=== PATIENT | female | born 1945 | race Caucasian/White ===

== ENCOUNTER → 2018-07-20 12:45 | Outpatient (CLI) | payer MEDICARE, OTHER, SELFPAY ==
[2018-07-20 14:37] LABS: Hemoglobin A1C% w Est Avg Glu 6.3 % (4.0-6.0)
== END ==
PROVIDERS: PCP Family Medicine; Visit Provider Family Medicine
DX: E11.9 Type 2 diabetes mellitus without complications (principal)
CPT/HCPCS: 36415; 83036

== ENCOUNTER → 2019-01-18 10:58 | Outpatient (CLI) | payer MEDICARE, OTHER, SELFPAY ==
[2019-01-18 12:09] LABS: Add Manual Diff / Slide Review NO; Basophils Absolute Auto 100 /uL (0-100); Basophils Percent Auto 0.6 % (0-2); Eosinophils Absolute Auto 300 /uL (0-450); Eosinophils Percent Auto 3.4 % (2-4); Hematocrit 43.4 % (36-46); Hemoglobin 14.5 g/dL (12.0-16.0); Lymphocytes Absolute Auto 2400 /uL (1100-4500); Lymphocytes Percent Auto 27.3 % (25-40); Mean Corpuscular HGB Conc 33.4 % (30-36); Mean Corpuscular Hemoglobin 30.9 PG (26-34); Mean Corpuscular Volume 92.5 fL (80-100); Monocytes Absolute Auto 600 /uL (0-900); Monocytes Percent Auto 7.4 % (3-14); Neutrophils Absolute Auto 5300 /uL (1500-7000); Neutrophils Percent Auto 61.3 % (50-75); Platelet Count 263 X10^3/uL (150-400); Red Blood Cell Count 4.69 X10^6/uL (4.0-5.2); White Blood Cell Count 8.6 X10^3/uL (4.5-11.0)
[2019-01-18 12:19] LABS: Hemoglobin A1C% w Est Avg Glu 6.2 % (4.0-6.0)
[2019-01-18 12:43] LABS: Alanine Aminotransferase 29 IU/L (9-52); Albumin Globulin Ratio 1.4 (1.0-2.8); Alkaline Phosphatase 108 U/L (38-126); Aspartate Aminotransferase 23 IU/L (14-36); Bilirubin Total 0.6 mg/dL (0.2-1.3); Blood Urea Nitrogen 14 mg/dL (7-17); Calcium 9.7 mg/dL (8.4-10.2); Carbon Dioxide 27 mmol/L (22-32); Chloride 103 mmol/L (98-107); Cholesterol 172 mg/dL (140-199); Estimated Glomerular Filt Rate > 60.0 mL/min (>60); Globulin 2.9 g/dL (1.7-4.1); Glucose 127 mg/dL (80-110); HDL Cholesterol 39 mg/dL (40-60); HEMOLYSIS < 15 (0-50); LDL Cholesterol Calculated 101 mg/dL (<100); Potassium 4.9 mmol/L (3.4-5.1); Sodium 140 mmol/L (137-145); Total Protein 6.9 g/dL (6.3-8.2); Triglycerides 158 mg/dL (35-150)
== END ==
PROVIDERS: Family Provider Family Medicine; PCP Family Medicine; Visit Provider Family Medicine
DX: E03.9 Hypothyroidism, unspecified (principal); E11.9 Type 2 diabetes mellitus without complications; I10 Essential (primary) hypertension
CPT/HCPCS: 36415; 80053; 80061; 83036; 84443; 85025

== ENCOUNTER → 2019-03-26 13:20 | Outpatient (CLI) | payer MEDICARE, OTHER, SELFPAY ==
--- NOTE | 2019-03-26 13:22 | DI.RAD.S_ITS ---
PROCEDURE: XR LUMBAR SPINE 2-3V INDICATIONS: lbp TECHNIQUE: 3 views of the lumbar spine were acquired. COMPARISON: None. FINDINGS: Bones: 5 [id number] vertebrae are present. There is normal bony alignment. No acute vertebral body compression fractures. Moderate multilevel lumbar spondylitic changes with facet arthrosis most severe at L4-5 and L5-S1. No suspicious bony lesions. Soft tissues: Overlying bowel gas pattern is normal. No suspicious soft tissue calcifications. Vascular calcifications of the abdominal aorta are noted. IMPRESSION: Lumbar spine without acute osseous abnormalities. Multilevel lumbar spondylosis most prominent at L4-5 and L5-S1. Dictated by: Watson Jaramillo M.D. on 03/26/2019 at 13:43 Approved by: Watson Jaramillo M.D. on 03/26/2019 at 13:44
== END ==
PROVIDERS: Family Provider Family Medicine; PCP Family Medicine; Visit Provider Family Medicine
DX: M54.5 Low back pain (principal); M47.816 Spondylosis without myelopathy or radiculopathy, lumbar region; M47.817 Spondylosis without myelopathy or radiculopathy, lumbosacral region
CPT/HCPCS: 72100

== ENCOUNTER 2019-05-23 13:11 | Emergency (ER) | payer MEDICARE, OTHER, SELFPAY ==
[2019-05-23 13:29] VITALS: BP 128/99; PULSE 71; RESP 15; TEMP 36.7; O2SAT 100; BMI 24.3
[2019-05-23 13:34] LABS: Appearance Urine UA SL CLOUDY; Bilirubin Urine UA NEGATIVE (NEGATIVE); Glucose Urine UA NEGATIVE (Negative); Ketones Urine UA NEGATIVE (NEGATIVE); Leukocyte Esterase Urine UA TRACE (NEGATIVE); Nitrite Urine UA NEGATIVE (Negative); Occult Blood Urine UA 3+ (Negative); Protein Urine UA 1+ (Negative); Urobilinogen Urine UA 0.2 E.U./dL (0.2)
--- NOTE | 2019-05-23 13:40 | ED.FEMALEGU ---
HPI - Female Genitourinary <AMY Woodall - Last Filed: 05/23/19 20:23> General Chief complaint: Urogenital-Female Stated complaint: Dark urine, pain in back/kidney Time Seen by Provider: 05/23/19 13:18 Source: patient Mode of arrival: ambulatory Limitations: no limitations History of Present Illness HPI Narrative: This is a pleasant 73-year-old female, nonsmoker, who presents with family member with chief complain of nausea, feeling fatigued, nocturnal cough, left flank pain, dark urine, feeling restless for last 3 days. She denies fever but felt sweaty at home. She was treated for bladder infection in the late April for 10 days with Bactrim DS when she was traveling to [place] to visit her daughter. She reports she did not fully feel recovered from this infection up until 4 days ago when she felt little improved for a day. She denies chest pain, breathing difficulty, calf pain, fainting episodes. She was re-evaluated by Dr. Burton when she returned to home with another urine test but the office did not contacted her with the result. She has history of AFib with anticoagulation, diabetes which she takes oral medications for. Related Data Home Medications Medication Instructions Recorded Confirmed ASCORBIC ACID (VITAMIN C) 500 mg PO Q DAY #0 06/04/12 05/07/19 CALCIUM CARBONATE (CALCIUM 1,000 mg PO #0 06/04/12 05/07/19 CARBONATE (CHEW)) Fish Oil (#FISH OIL) 1 iu PO #0 06/04/12 05/07/19 Glucosamine Hydrochloride 500 mg PO #0 06/04/12 05/07/19 (#GLUCOSAMINE) MULTIVITAMIN (One Daily 1 tab PO Q DAY #0 06/04/12 05/07/19 Multivitamin) VITAMIN D 400 iu PO #0 06/04/12 05/07/19 Zinc, Chelated (#ZINC) 10 mg PO #0 06/04/12 05/07/19 folic acid 0.4 mg PO QDAY #0 06/04/12 05/07/19 Previous Rx's Medication Instructions Recorded clobetasol 0.05 % TOPICAL QDAY #50 ml 01/26/18 glipizide 10 mg tablet 10 mg PO BIDCC #180 tab 02/03/19 lisinopril 40 mg tablet 40 mg PO QDAY #90 tab 02/03/19 metoprolol tartrate 100 mg tablet 100 mg PO BID #180 tab 02/03/19 gabapentin 300 mg capsule 600 mg PO HS #180 tab 02/11/19 levothyroxine 100 mcg tablet 100 mcg PO QAM #90 tab 02/11/19 metformin ER 500 mg 1,000 mg PO BID #360 tab 02/11/19 tablet,extended release 24 hr ranitidine 150 mg tablet 150 mg PO BID #180 tab 02/11/19 warfarin 5 mg tablet 5 mg PO .COMPLEX #90 tab 02/11/19 levofloxacin [Levaquin] 750 mg PO DAILY 5 Days tab 05/23/19 ondansetron HCl [Zofran] 4 mg PO Q6-8H PRN #7 tab 05/23/19 Allergies Allergy/AdvReac Type Severity Reaction Status Date / Time No Known Drug Allergies Allergy Verified 05/07/19 14:07 Review of Systems <AMY Woodall - Last Filed: 05/23/19 20:23> Review of Systems General: See HPI HEENT: Denies sinus pain, ear pain, sore throat, difficulty swallowing, dizziness. Respiratory: Denies dyspnea, wheezing, hemoptysis, sputum. Cardiovascular: Denies chest pain, palpitations, edema. Gastrointestinal: See HPI : See HPI Musculoskeletal: Denies weakness, joint pain or bony pain. Skin: Denies rash, skin lesions, or other. Neurologic: Denies headache, numbness, change in speech, confusion, seizures, incoordination. Psychiatric: No concerning psychosocial issues. 12-point review of systems is negative except for those stated above. PFSH <AMY Woodall - Last Filed: 05/23/19 20:23> Medical History (Updated 05/23/19 @ 16:06 by AMY Woodall) GERD (gastroesophageal reflux disease) (Acute) HTN (hypertension) (Acute) Hypothyroidism (Acute) Paresthesia (Acute) Anemia (Chronic) Atrial fibrillation (Chronic ~2015) Diabetes mellitus (Chronic) Fibroids (Chronic) Heavy menstrual period (Chronic) Tinnitus (Chronic) Vision disorder (Chronic) Chicken pox (Resolved) Measles (Resolved) Mumps (Resolved) Surgical History History of hysterectomy (Resolved) Family History Father Stroke Mother Heart disease Social History marital status: Smoking Status: Never smoker alcohol intake: current substance use type: does not use Family History Father Stroke Mother Heart disease Social History marital status: Smoking Status: Never smoker alcohol intake: current substance use type: does not use Exam <AMY Woodall - Last Filed: 05/23/19 20:23> Narrative Exam Narrative: GEN: Alert, oriented x 3, well appearing and nourished, and in no acute distress. Head: Normal cephalic, atraumatic. No scalp or temporal tenderness, palpable mass or rash. EYES: Pupils are equal, round, and reactive to light and accommodation. Extraocular muscles are intact bilaterally. There is no subconjunctival hemorrhage, exudate and sclera non-icteric. ENT: Mucous membrane moist, no mucosal lesion. Throat without erythema, tonsillar hypertrophy or exudate. Uvula in midline, airway patent. Neck: Trachea in midline. No JVD, non-tender without lymphadenopathy. No masses or thyroid megaly. Supple, non-tender and no meningeal signs. CARDIAC: Normal regular rate and rhythm without murmurs, gallops, or rubs. No chest wall tenderness. No peripheral edema, cyanosis or pallor. Capillary refill is less than 2 seconds. RESPIRATORY: Lungs are cleat to auscultate bilaterally. No cough, wheezes, rales, or rhonchi. No stridor, respiratory distress, increase work of breathing, or accessary muscle used. ABD: Abdomen soft, nontender and non-distended. No guarding or rebound tenderness to palpate. Bowel sounds are normal in all 4 quadrants. There is no palpable masses or organomegaly. EXT: Full painless ROM of all extremities with no loss of sensation, strength, effusion or edema. SKIN: Warm, dry, normal color for patient. No erythema, lesions or rash over visible areas. BACK: Nontender without deformity or crepitance. L flank pain to percussion NEUROLOGICAL: Alert and oriented to place, time and person. Sensation and motor function intact bilaterally. No facial droops, dysphasia. PSYCHIATRIC: Good judgement and reason, without hallucinations, abnormal affect or abnormal behaviors during the examination. Initial Vital Signs Initial Vital Signs: Vital Signs Temperature 98.1 F 05/23/19 13:29 Pulse Rate 71 05/23/19 13:29 Respiratory Rate 15 05/23/19 13:29 Blood Pressure 128/99 H 05/23/19 13:29 Pulse Oximetry 100 05/23/19 13:29 <Jeison Napoles DO - Last Filed: 05/25/19 04:32> Initial Vital Signs Initial Vital Signs: Vital Signs Temperature 98.1 F 05/23/19 13:29 Pulse Rate 71 05/23/19 13:29 Respiratory Rate 15 05/23/19 13:29 Blood Pressure 128/99 H 05/23/19 13:29 Pulse Oximetry 100 05/23/19 13:29 Course <AMY Woodall - Last Filed: 05/23/19 20:23> Orders Ordered: Discontinued Medications Ceftriaxone Sodium/Dextrose (Rocephin) 1 gm in 50 mls @ 100 mls/hr IV NOW ONE Stop: 05/23/19 16:20 Last Infusion: 05/23/19 17:07 Dose: 0 mls/hr Admin: 05/23/19 16:01 Dose: 100 mls/hr Sodium Chloride (Normal Saline 0.9%) 500 mls @ 1,000 mls/hr IV BOLUS PRN PRN Reason: Fluid replacement Last Infusion: 05/23/19 17:07 Dose: 0 mls/hr Admin: 05/23/19 16:01 Dose: 1,000 mls/hr Vital Signs - 8 hr 05/23/19 13:29 05/23/19 17:00 Temperature 98.1 F Pulse Rate 71 77 Respiratory Rate 15 16 Blood Pressure 128/99 H Blood Pressure [Right Arm] 145/76 H Pulse Oximetry 100 98 <Jeison Napoles DO - Last Filed: 05/25/19 04:32> Orders Ordered: Discontinued Medications Ceftriaxone Sodium/Dextrose (Rocephin) 1 gm in 50 mls @ 100 mls/hr IV NOW ONE Stop: 05/23/19 16:20 Last Infusion: 05/23/19 17:07 Dose: 0 mls/hr Admin: 05/23/19 16:01 Dose: 100 mls/hr Sodium Chloride (Normal Saline 0.9%) 500 mls @ 1,000 mls/hr IV BOLUS PRN PRN Reason: Fluid replacement Last Infusion: 05/23/19 17:07 Dose: 0 mls/hr Admin: 05/23/19 16:01 Dose: 1,000 mls/hr Vital Signs - 8 hr 05/23/19 13:29 05/23/19 17:00 Temperature 98.1 F Pulse Rate 71 77 Respiratory Rate 15 16 Blood Pressure 128/99 H Blood Pressure [Right Arm] 145/76 H Pulse Oximetry 100 98 MDM - Female Genitourinary <AMY Woodall - Last Filed: 05/23/19 20:23> Differential Diagnosis Likely urinary tract infection and other (pylonephritis, HF, pneumonia, sepsis) Medical Records Attestation: I reviewed the patient's medical records. Lab Data Attestation: I reviewed the patient's lab results. Result diagrams: 05/23/19 14:55 05/23/19 14:55 Lab Results 05/23/19 05/23/19 05/23/19 Range/Units 13:15 14:55 14:55 WBC 11.7 H (4.5-11.0) X10^3/uL RBC 4.57 (4.0-5.2) X10^6/uL Hgb 14.3 (12.0-16.0) g/dL Hct 41.8 (36-46) % MCV 91.4 (80-100) fL MCH 31.3 (26-34) PG MCHC 34.2 (30-36) % RDW 13.2 (11.6-14.8) % Plt Count 279 (150-400) X10^3/uL Neut % (Auto) 71.6 (50-75) % Lymph % (Auto) 19.3 L (25-40) % [place] % (Auto) 6.9 (3-14) % Eos % (Auto) 1.7 L (2-4) % Baso % (Auto) 0.5 (0-2) % Neut # (Auto) 8400 H (9911-7996) /uL Lymph # (Auto) 2300 (7478-5794) /uL [place] # (Auto) 800 (0-900) /uL Eos # (Auto) 200 (0-450) /uL Baso # (Auto) 100 (0-100) /uL Sodium 138 (137-145) mmol/L Potassium 4.6 (3.4-5.1) mmol/L Chloride 104 (98-107) mmol/L Carbon Dioxide 25 (22-32) mmol/L BUN 15 (7-17) mg/dL Creatinine 0.80 (0.52-1.04) mg/dL Estimated GFR > 60.0 (>60) mL/min BUN/Creatinine Ratio 18.8 (6-22) Glucose 117 H (80-110) mg/dL Lactate (0.7-2.1) mmol/L Calcium 9.4 (8.4-10.2) mg/dL B-Natriuretic Peptide 128 H (<100) Urine Color Brown Urine Appearance Sl cloudy Urine pH 5.0 (4.5-8.0) Ur Specific [place] 1.010 (1.000-1.035) Urine Protein 1+ H (Negative) Urine Glucose (UA) Negative (Negative) g/dL Urine Ketones Negative (NEGATIVE) Urine Occult Blood 3+ H (Negative) Urine Nitrate Negative (Negative) Urine Bilirubin Negative (NEGATIVE) Urine Urobilinogen 0.2 (0.2) E.U./dL Ur Leukocyte Esterase Trace H (NEGATIVE) Urine RBC >100/hpf H (0-5/HPF) Urine WBC 0-1/hpf (0-5/HPF) Amorphous Sediment 1+ Urine Bacteria Few (2-10) H (None) Ur Culture Indicated? Specimen cultured 05/23/19 Range/Units 14:55 WBC (4.5-11.0) X10^3/uL RBC (4.0-5.2) X10^6/uL Hgb (12.0-16.0) g/dL Hct (36-46) % MCV (80-100) fL MCH (26-34) PG MCHC (30-36) % RDW (11.6-14.8) % Plt Count (150-400) X10^3/uL Neut % (Auto) (50-75) % Lymph % (Auto) (25-40) % [place] % (Auto) (3-14) % Eos % (Auto) (2-4) % Baso % (Auto) (0-2) % Neut # (Auto) (5749-6654) /uL Lymph # (Auto) (4517-7255) /uL [place] # (Auto) (0-900) /uL Eos # (Auto) (0-450) /uL Baso # (Auto) (0-100) /uL Sodium (137-145) mmol/L Potassium (3.4-5.1) mmol/L Chloride (98-107) mmol/L Carbon Dioxide (22-32) mmol/L BUN (7-17) mg/dL Creatinine (0.52-1.04) mg/dL Estimated GFR (>60) mL/min BUN/Creatinine Ratio (6-22) Glucose (80-110) mg/dL Lactate 1.6 (0.7-2.1) mmol/L Calcium (8.4-10.2) mg/dL B-Natriuretic Peptide (<100) Urine Color Urine Appearance Urine pH (4.5-8.0) Ur Specific [place] (1.000-1.035) Urine Protein (Negative) Urine Glucose (UA) (Negative) g/dL Urine Ketones (NEGATIVE) Urine Occult Blood (Negative) Urine Nitrate (Negative) Urine Bilirubin (NEGATIVE) Urine Urobilinogen (0.2) E.U./dL Ur Leukocyte Esterase (NEGATIVE) Urine RBC (0-5/HPF) Urine WBC (0-5/HPF) Amorphous Sediment Urine Bacteria (None) Ur Culture Indicated? Imaging Data Chest x-ray: Radiologist's impression: [address] [address] XRay Report Signed Patient: Kandace Mccord EMR#: [id number] : 5Acct:[id number] Age/Sex: 73 / FDate of Service: 05/23/19 Loc: ED Accession Number: [id number] Procedure: XR chest 1V Ordering Provider: Romie Montana PROCEDURE: XR CHEST 1V INDICATIONS: orthopnea, cough TECHNIQUE: One view of the chest was acquired. COMPARISON: None. FINDINGS: Surgical changes and devices: None. Lungs and pleura: Coarse interstitial markings are identified throughout the lungs, which is slightly more prominent within the right lung. There is questionable airspace disease within the right upper lobe. No large effusion or definite pneumothorax is appreciated. Mediastinum: Mediastinal contours appear normal. The heart appears to be enlarged. There is aortic atherosclerosis. Bones and chest wall: No suspicious bony lesions. Degenerative changes of the spine and shoulders are not adequately characterized. Overlying soft tissues appear unremarkable. IMPRESSION: 1. Cardiomegaly without overt heart failure. 2. Questionable developing right upper lobe pneumonia. Please correlate clinically. 3. Probable chronic interstitial changes of the lungs. Dictated by: Chucho Ritter M.D. on 05/23/2019 at 12:58 Approved by: Chucho Ritter M.D. on 05/23/2019 at 12:59 MDM Narrative Medical decision making narrative: This is a 73-year-old female chief complain of nausea, left flank pain, dark urine, feeling fatigued, nocturnal cough, subjective fever. Patient was treated with Bactrim DS for 10 days in and of April for bladder infection. However she felt as the infection was not completely treated since she was not feeling completely well with. She was followed up with Dr. Burton and provided another urine sample but the clinic had not contacted her for additional treatment. Her urine test was consistent with infection. Her white count was mildly elevated with elevation in neutrophil. Her chest x-ray shows cardiomegaly with possible early right lobe pneumonia. The BNP was 128. Her INR was 1.9 that was followed up by [facility] on 05/20/19. She was treated with normal saline 500 mL with Rocephin 1 g IV prior to DC to home. Her urine is being cultured at this time. She is DC to home with Levaquin 750 mg once a day dose for 5 days which should start tomorrow. I discussed in length with the patient that she needs to be closely followed up for INR since Levaquin may increase the level. We discussed in length return precautions as well. She was to follow up with her PCP in 2-3 days for recheck. Patient verbalized the understanding and agrees with treatment plan. <Jeison Napoles DO - Last Filed: 05/25/19 04:32> Lab Data Lab Results 05/23/19 05/23/19 05/23/19 Range/Units 13:15 14:55 14:55 WBC 11.7 H (4.5-11.0) X10^3/uL RBC 4.57 (4.0-5.2) X10^6/uL Hgb 14.3 (12.0-16.0) g/dL Hct 41.8 (36-46) % MCV 91.4 (80-100) fL MCH 31.3 (26-34) PG MCHC 34.2 (30-36) % RDW 13.2 (11.6-14.8) % Plt Count 279 (150-400) X10^3/uL Neut % (Auto) 71.6 (50-75) % Lymph % (Auto) 19.3 L (25-40) % [place] % (Auto) 6.9 (3-14) % Eos % (Auto) 1.7 L (2-4) % Baso % (Auto) 0.5 (0-2) % Neut # (Auto) 8400 H (3550-2853) /uL Lymph # (Auto) 2300 (8238-4742) /uL [place] # (Auto) 800 (0-900) /uL Eos # (Auto) 200 (0-450) /uL Baso # (Auto) 100 (0-100) /uL Sodium 138 (137-145) mmol/L Potassium 4.6 (3.4-5.1) mmol/L Chloride 104 (98-107) mmol/L Carbon Dioxide 25 (22-32) mmol/L BUN 15 (7-17) mg/dL Creatinine 0.80 (0.52-1.04) mg/dL Estimated GFR > 60.0 (>60) mL/min BUN/Creatinine Ratio 18.8 (6-22) Glucose 117 H (80-110) mg/dL Lactate (0.7-2.1) mmol/L Calcium 9.4 (8.4-10.2) mg/dL B-Natriuretic Peptide 128 H (<100) Urine Color Brown Urine Appearance Sl cloudy Urine pH 5.0 (4.5-8.0) Ur Specific [place] 1.010 (1.000-1.035) Urine Protein 1+ H (Negative) Urine Glucose (UA) Negative (Negative) g/dL Urine Ketones Negative (NEGATIVE) Urine Occult Blood 3+ H (Negative) Urine Nitrate Negative (Negative) Urine Bilirubin Negative (NEGATIVE) Urine Urobilinogen 0.2 (0.2) E.U./dL Ur Leukocyte Esterase Trace H (NEGATIVE) Urine RBC >100/hpf H (0-5/HPF) Urine WBC 0-1/hpf (0-5/HPF) Amorphous Sediment 1+ Urine Bacteria Few (2-10) H (None) Ur Culture Indicated? Specimen cultured 05/23/19 Range/Units 14:55 WBC (4.5-11.0) X10^3/uL RBC (4.0-5.2) X10^6/uL Hgb (12.0-16.0) g/dL Hct (36-46) % MCV (80-100) fL MCH (26-34) PG MCHC (30-36) % RDW (11.6-14.8) % Plt Count (150-400) X10^3/uL Neut % (Auto) (50-75) % Lymph % (Auto) (25-40) % [place] % (Auto) (3-14) % Eos % (Auto) (2-4) % Baso % (Auto) (0-2) % Neut # (Auto) (5725-6459) /uL Lymph # (Auto) (2079-9648) /uL [place] # (Auto) (0-900) /uL Eos # (Auto) (0-450) /uL Baso # (Auto) (0-100) /uL Sodium (137-145) mmol/L Potassium (3.4-5.1) mmol/L Chloride (98-107) mmol/L Carbon Dioxide (22-32) mmol/L BUN (7-17) mg/dL Creatinine (0.52-1.04) mg/dL Estimated GFR (>60) mL/min BUN/Creatinine Ratio (6-22) Glucose (80-110) mg/dL Lactate 1.6 (0.7-2.1) mmol/L Calcium (8.4-10.2) mg/dL B-Natriuretic Peptide (<100) Urine Color Urine Appearance Urine pH (4.5-8.0) Ur Specific [place] (1.000-1.035) Urine Protein (Negative) Urine Glucose (UA) (Negative) g/dL Urine Ketones (NEGATIVE) Urine Occult Blood (Negative) Urine Nitrate (Negative) Urine Bilirubin (NEGATIVE) Urine Urobilinogen (0.2) E.U./dL Ur Leukocyte Esterase (NEGATIVE) Urine RBC (0-5/HPF) Urine WBC (0-5/HPF) Amorphous Sediment Urine Bacteria (None) Ur Culture Indicated? Discharge Plan Departure Patient Disposition: Home Clinical Impression: Acute pyelonephritis Pneumonia Qualifiers: Pneumonia type: due to unspecified organism Laterality: right Lung location: lower lobe of lung Qualified Code(s): J18.1 - Lobar pneumonia, unspecified organism Discharge Date/Time: 05/23/19 17:09 Interventions: ED Discharge Assessment Last Done: 05/23/19 17:08 Instructions: DI for Kidney Infection, DI for Pneumonia -- Adult Activity Restrictions/Additional Instructions: You have been diagnosed with [kidney infection and possible early pneumonia in R lower lobe. Your urine culture is being done at this time. You'll be called if you need medication changed to treat you're infection]. What to do: *Take your medications as directed. Levaquin is once a day does for next 5 days. Please start this medication tomorrow since you have received IV antibiotic medication in the ED. This may cause you're INR changes. Please contact Coumadin clinic on Friday morning and have your INR checked frequently. Also, he can use Zofran only as needed for nausea. *Follow up with your primary care provider in 2-3 days, call for an appointment. Let them know you were seen in the ED and that we asked you to be seen in follow up. *Return to ED if you have any new, worsening, or concerning symptoms, such as [worsening fever, chills, pain, breathing difficulty, chest pain, unable to tolerate fluids, any acute concerns]. Prescriptions: New ondansetron HCl [Zofran] 4 mg tablet 4 mg PO Q6-8H PRN (Reason: nausea and vomiting) Qty: 7 RF: 0 levofloxacin [Levaquin] 750 mg tablet 750 mg PO DAILY 5 Days RF: 0 No Action MULTIVITAMIN (One Daily Multivitamin) 1 tab PO Q DAY Qty: 0 RF: 0 ASCORBIC ACID (VITAMIN C) 500 mg PO Q DAY Qty: 0 RF: 0 Glucosamine Hydrochloride (#GLUCOSAMINE) 500 mg PO Qty: 0 RF: 0 CALCIUM CARBONATE (CALCIUM CARBONATE (CHEW)) 1,000 mg PO Qty: 0 RF: 0 Fish Oil (#FISH OIL) 1 iu PO Qty: 0 RF: 0 VITAMIN D 400 iu PO Qty: 0 RF: 0 Zinc, Chelated (#ZINC) 10 mg PO Qty: 0 RF: 0 folic acid 0.4 MG tablet 0.4 mg PO QDAY Qty: 0 RF: 0 clobetasol 0.05 % solution 0.05 % Topical QDAY Qty: 50 RF: 0 glipizide [Glucotrol] 10 mg tablet 10 mg PO BIDCC Qty: 180 RF: 3 lisinopril 40 mg tablet 40 mg PO QDAY Qty: 90 RF: 3 metoprolol tartrate [Lopressor] 100 mg tablet 100 mg PO BID Qty: 180 RF: 3 warfarin [Coumadin] 5 mg tablet 5 mg PO .COMPLEX Qty: 90 RF: 3 ranitidine HCl 150 mg tablet 150 mg PO BID Qty: 180 RF: 3 metformin [Glucophage XR] 500 mg tablet extended release 24 hr 1,000 mg PO BID Qty: 360 RF: 3 levothyroxine 100 mcg tablet 100 mcg PO QAM Qty: 90 RF: 3 gabapentin [Neurontin] 300 mg capsule 600 mg PO HS Qty: 180 RF: 3 Referrals: Frandy Burton MD [Primary Care Provider] - <Jeison Napoles DO - Last Filed: 05/25/19 04:32> Cosign ED Attending Cosos[place]doature Attestation: I was immediately available in the department for consultation. Documentation has been reviewed. I agree with assessment and plan.
[2019-05-23 13:42] LABS: Amorphous Sediment Urine 1+; Bacteria Urine Few (2-10); Color Urine UA BROWN; Culture Indicated Urine Specimen Cultured; RBC Urine >100/HPF (0-5/HPF); WBC Urine 0-1/HPF (0-5/HPF)
--- NOTE | 2019-05-23 13:45 | ED_ITS ---
HPI - Female Genitourinary <AMY Woodall - Last Filed: 05/23/19 20:23> General Chief complaint: Urogenital-Female Stated complaint: Dark urine, pain in back/kidney Time Seen by Provider: 05/23/19 13:18 Source: patient Mode of arrival: ambulatory Limitations: no limitations History of Present Illness HPI Narrative: This is a pleasant 73-year-old female, nonsmoker, who presents with family member with chief complain of nausea, feeling fatigued, nocturnal cough, left flank pain, dark urine, feeling restless for last 3 days. She denies fever but felt sweaty at home. She was treated for bladder infection in the late April for 10 days with Bactrim DS when she was traveling to [place] to visit her daughter. She reports she did not fully feel recovered from this infection up until 4 days ago when she felt little improved for a day. She denies chest pain, breathing difficulty, calf pain, fainting episodes. She was re-evaluated by Dr. Burton when she returned to home with another urine test but the office did not contacted her with the result. She has history of AFib with anticoagulation, diabetes which she takes oral medications for. Related Data Home Medications Medication Instructions Recorded Confirmed ASCORBIC ACID (VITAMIN C) 500 mg PO Q DAY #0 06/04/12 05/07/19 CALCIUM CARBONATE (CALCIUM 1,000 mg PO #0 06/04/12 05/07/19 CARBONATE (CHEW)) Fish Oil (#FISH OIL) 1 iu PO #0 06/04/12 05/07/19 Glucosamine Hydrochloride 500 mg PO #0 06/04/12 05/07/19 (#GLUCOSAMINE) MULTIVITAMIN (One Daily 1 tab PO Q DAY #0 06/04/12 05/07/19 Multivitamin) VITAMIN D 400 iu PO #0 06/04/12 05/07/19 Zinc, Chelated (#ZINC) 10 mg PO #0 06/04/12 05/07/19 folic acid 0.4 mg PO QDAY #0 06/04/12 05/07/19 Previous Rx's Medication Instructions Recorded clobetasol 0.05 % TOPICAL QDAY #50 ml 01/26/18 glipizide 10 mg tablet 10 mg PO BIDCC #180 tab 02/03/19 lisinopril 40 mg tablet 40 mg PO QDAY #90 tab 02/03/19 metoprolol tartrate 100 mg tablet 100 mg PO BID #180 tab 02/03/19 gabapentin 300 mg capsule 600 mg PO HS #180 tab 02/11/19 levothyroxine 100 mcg tablet 100 mcg PO QAM #90 tab 02/11/19 metformin ER 500 mg 1,000 mg PO BID #360 tab 02/11/19 tablet,extended release 24 hr ranitidine 150 mg tablet 150 mg PO BID #180 tab 02/11/19 warfarin 5 mg tablet 5 mg PO .COMPLEX #90 tab 02/11/19 levofloxacin [Levaquin] 750 mg PO DAILY 5 Days tab 05/23/19 ondansetron HCl [Zofran] 4 mg PO Q6-8H PRN #7 tab 05/23/19 Allergies Allergy/AdvReac Type Severity Reaction Status Date / Time No Known Drug Allergies Allergy Verified 05/07/19 14:07 Review of Systems <AMY Woodall - Last Filed: 05/23/19 20:23> Review of Systems General: See HPI HEENT: Denies sinus pain, ear pain, sore throat, difficulty swallowing, dizziness. Respiratory: Denies dyspnea, wheezing, hemoptysis, sputum. Cardiovascular: Denies chest pain, palpitations, edema. Gastrointestinal: See HPI : See HPI Musculoskeletal: Denies weakness, joint pain or bony pain. Skin: Denies rash, skin lesions, or other. Neurologic: Denies headache, numbness, change in speech, confusion, seizures, incoordination. Psychiatric: No concerning psychosocial issues. 12-point review of systems is negative except for those stated above. PFSH <AMY Woodall - Last Filed: 05/23/19 20:23> Medical History (Updated 05/23/19 @ 16:06 by AMY Woodall) GERD (gastroesophageal reflux disease) (Acute) HTN (hypertension) (Acute) Hypothyroidism (Acute) Paresthesia (Acute) Anemia (Chronic) Atrial fibrillation (Chronic ~2015) Diabetes mellitus (Chronic) Fibroids (Chronic) Heavy menstrual period (Chronic) Tinnitus (Chronic) Vision disorder (Chronic) Chicken pox (Resolved) Measles (Resolved) Mumps (Resolved) Surgical History History of hysterectomy (Resolved) Family History Father Stroke Mother Heart disease Social History marital status: Smoking Status: Never smoker alcohol intake: current substance use type: does not use Family History Father Stroke Mother Heart disease Social History marital status: Smoking Status: Never smoker alcohol intake: current substance use type: does not use Exam <AMY Woodall - Last Filed: 05/23/19 20:23> Narrative Exam Narrative: GEN: Alert, oriented x 3, well appearing and nourished, and in no acute distress. Head: Normal cephalic, atraumatic. No scalp or temporal tenderness, palpable mass or rash. EYES: Pupils are equal, round, and reactive to light and accommodation. Extraocular muscles are intact bilaterally. There is no subconjunctival h emorrhage, exudate and sclera non-icteric. ENT: Mucous membrane moist, no mucosal lesion. Throat without erythema, tonsillar hypertrophy or exudate. Uvula in midline, airway patent. Neck: Trachea in midline. No JVD, non-tender without lymphadenopathy. No masses or thyroid megaly. Supple, non-tender and no meningeal signs. CARDIAC: Normal regular rate and rhythm without murmurs, gallops, or rubs. No chest wall tenderness. No peripheral edema, cyanosis or pallor. Capillary refill is less than 2 seconds. RESPIRATORY: Lungs are cleat to auscultate bilaterally. No cough, wheezes, rales, or rhonchi. No stridor, respiratory distress, increase work of breathing, or accessary muscle used. ABD: Abdomen soft, nontender and non-distended. No guarding or rebound tenderness to palpate. Bowel sounds are normal in all 4 quadrants. There is no palpable masses or organomegaly. EXT: Full painless ROM of all extremities with no loss of sensation, strength, effusion or edema. SKIN: Warm, dry, normal color for patient. No erythema, lesions or rash over visible areas. BACK: Nontender without deformity or crepitance. L flank pain to percussion NEUROLOGICAL: Alert and oriented to place, time and person. Sensation and motor function intact bilaterally. No facial droops, dysphasia. PSYCHIATRIC: Good judgement and reason, without hallucinations, abnormal affect or abnormal behaviors during the examination. Initial Vital Signs Initial Vital Signs: Vital Signs Temperature 98.1 F 05/23/19 13:29 Pulse Rate 71 05/23/19 13:29 Respiratory Rate 15 05/23/19 13:29 Blood Pressure 128/99 H 05/23/19 13:29 Pulse Oximetry 100 05/23/19 13:29 <Jeison Napoles DO - Last Filed: 05/25/19 04:32> Initial Vital Signs Initial Vital Signs: Vital Signs Temperature 98.1 F 05/23/19 13:29 Pulse Rate 71 05/23/19 13:29 Respiratory Rate 15 05/23/19 13:29 Blood Pressure 128/99 H 05/23/19 13:29 Pulse Oximetry 100 05/23/19 13:29 Course <AMY Woodall - Last Filed: 05/23/19 20:23> Orders Ordered: Discontinued Medications Ceftriaxone Sodium/Dextrose (Rocephin) 1 gm in 50 mls @ 100 mls/hr IV NOW ONE Stop: 05/23/19 16:20 Last Infusion: 05/23/19 17:07 Dose: 0 mls/hr Admin: 05/23/19 16:01 Dose: 100 mls/hr Sodium Chloride (Normal Saline 0.9%) 500 mls @ 1,000 mls/hr IV BOLUS PRN PRN Reason: Fluid replacement Last Infusion: 05/23/19 17:07 Dose: 0 mls/hr Admin: 05/23/19 16:01 Dose: 1,000 mls/hr Vital Signs - 8 hr 05/23/19 13:29 05/23/19 17:00 Temperature 98.1 F Pulse Rate 71 77 Respiratory Rate 15 16 Blood Pressure 128/99 H Blood Pressure [Right Arm] 145/76 H Pulse Oximetry 100 98 <Jeison Napoles DO - Last Filed: 05/25/19 04:32> Orders Ordered: Discontinued Medications Ceftriaxone Sodium/Dextrose (Rocephin) 1 gm in 50 mls @ 100 mls/hr IV NOW ONE Stop: 05/23/19 16:20 Last Infusion: 05/23/19 17:07 Dose: 0 mls/hr Admin: 05/23/19 16:01 Dose: 100 mls/hr Sodium Chloride (Normal Saline 0.9%) 500 mls @ 1,000 mls/hr IV BOLUS PRN PRN Reason: Fluid replacement Last Infusion: 05/23/19 17:07 Dose: 0 mls/hr Admin: 05/23/19 16:01 Dose: 1,000 mls/hr Vital Signs - 8 hr 05/23/19 13:29 05/23/19 17:00 Temperature 98.1 F Pulse Rate 71 77 Respiratory Rate 15 16 Blood Pressure 128/99 H Blood Pressure [Right Arm] 145/76 H Pulse Oximetry 100 98 MDM - Female Genitourinary <AMY Woodall - Last Filed: 05/23/19 20:23> Differential Diagnosis Likely urinary tract infection and other (pylonephritis, HF, pneumonia, sepsis) Medical Records Attestation: I reviewed the patient's medical records. Lab Data Attestation: I reviewed the patient's lab results. Result diagrams: 05/23/19 14:55 05/23/19 14:55 Lab Results 05/23/19 05/23/19 05/23/19 Range/Units 13:15 14:55 14:55 WBC 11.7 H (4.5-11.0) X10^3/uL RBC 4.57 (4.0-5.2) X10^6/uL Hgb 14.3 (12.0-16.0) g/dL Hct 41.8 (36-46) % MCV 91.4 (80-100) fL MCH 31.3 (26-34) PG MCHC 34.2 (30-36) % RDW 13.2 (11.6-14.8) % Plt Count 279 (150-400) X10^3/uL Neut % (Auto) 71.6 (50-75) % Lymph % (Auto) 19.3 L (25-40) % Redwood % (Auto) 6.9 (3-14) % Eos % (Auto) 1.7 L (2-4) % Baso % (Auto) 0.5 (0-2) % Neut # (Auto) 8400 H (0102-9843) /uL Lymph # (Auto) 2300 (1656-0698) /uL Redwood # (Auto) 800 (0-900) /uL Eos # (Auto) 200 (0-450) /uL Baso # (Auto) 100 (0-100) /uL Sodium 138 (137-145) mmol/L Potassium 4.6 (3.4-5.1) mmol/L Chloride 104 (98-107) mmol/L Carbon Dioxide 25 (22-32) mmol/L BUN 15 (7-17) mg/dL Creatinine 0.80 (0.52-1.04) mg/dL Estimated GFR > 60.0 (>60) mL/min BUN/Creatinine Ratio 18.8 (6-22) Glucose 117 H (80-110) mg/dL Lactate (0.7-2.1) mmol/L Calcium 9.4 (8.4-10.2) mg/dL B-Natriuretic Peptide 128 H (<100) Urine Color Brown Urine Appearance Sl cloudy Urine pH 5.0 (4.5-8.0) Ur Specific [place] 1.010 (1.000-1.035) Urine Protein 1+ H (Negative) Urine Glucose (UA) Negative (Negative) g/dL Urine Ketones Negative (NEGATIVE) Urine Occult Blood 3+ H (Negative) Urine Nitrate Negative (Negative) Urine Bilirubin Negative (NEGATIVE) Urine Urobilinogen 0.2 (0.2) E.U./dL Ur Leukocyte Esterase Trace H (NEGATIVE) Urine RBC >100/hpf H (0-5/HPF) Urine WBC 0-1/hpf (0-5/HPF) Amorphous Sediment 1+ Urine Bacteria Few (2-10) H (None) Ur Culture Indicated? Specimen cultured 05/23/19 Range/Units 14:55 WBC (4.5-11.0) X10^3/uL RBC (4.0-5.2) X10^6/uL Hgb (12.0-16.0) g/dL Hct (36-46) % MCV (80-100) fL MCH (26-34) PG MCHC (30-36) % RDW (11.6-14.8) % Plt Count (150-400) X10^3/uL Neut % (Auto) (50-75) % Lymph % (Auto) (25-40) % Redwood % (Auto) (3-14) % Eos % (Auto) (2-4) % Baso % (Auto) (0-2) % Neut # (Auto) (6733-0602) /uL Lymph # (Auto) (6801-4239) /uL Redwood # (Auto) (0-900) /uL Eos # (Auto) (0-450) /uL Baso # (Auto) (0-100) /uL Sodium (137-145) mmol/L Potassium (3.4-5.1) mmol/L Chloride (98-107) mmol/L Carbon Dioxide (22-32) mmol/L BUN (7-17) mg/dL Creatinine (0.52-1.04) mg/dL Estimated GFR (>60) mL/min BUN/Creatinine Ratio (6-22) Glucose (80-110) mg/dL Lactate 1.6 (0.7-2.1) mmol/L Calcium (8.4-10.2) mg/dL B-Natriuretic Peptide (<100) Urine Color Urine Appearance Urine pH (4.5-8.0) Ur Specific [place] (1.000-1.035) Urine Protein (Negative) Urine Glucose (UA) (Negative) g/dL Urine Ketones (NEGATIVE) Urine Occult Blood (Negative) Urine Nitrate (Negative) Urine Bilirubin (NEGATIVE) Urine Urobilinogen (0.2) E.U./dL Ur Leukocyte Esterase (NEGATIVE) Urine RBC (0-5/HPF) Urine WBC (0-5/HPF) Amorphous Sediment Urine Bacteria (None) Ur Culture Indicated? Imaging Data Chest x-ray: Radiologist's impression: [address] [id number] XRay Report Signed Patient: Kandace Mccord EMR#: [id number] : 5Acct:[id number] Age/Sex: 73 / FDate of Service: 05/23/19 Loc: ED Accession Number: [id number] Procedure: XR chest 1V Ordering Provider: Romie [place] PROCEDURE: XR CHEST 1V INDICATIONS: orthopnea, cough TECHNIQUE: One view of the chest was acquired. COMPARISON: None. FINDINGS: Surgical changes and devices: None. Lungs and pleura: Coarse interstitial markings are identified throughout the lungs, which is slightly more prominent within the right lung. There is questionable airspace disease within the right upper lobe. No large effusion or definite pneumothorax is appreciated. Mediastinum: Mediastinal contours appear normal. The heart appears to be enlarged. There is aortic atherosclerosis. Bones and chest wall: No suspicious bony lesions. Degenerative changes of the spine and shoulders are not adequately characterized. Overlying soft tissues appear unremarkable. IMPRESSION: 1. Cardiomegaly without overt heart failure. 2. Questionable developing right upper lobe pneumonia. Please correlate clinically. 3. Probable chronic interstitial changes of the lungs. Dictated by: Chucho Ritter M.D. on 05/23/2019 at 12:58 Approved by: Chucho Ritter M.D. on 05/23/2019 at 12:59 MDM Narrative Medical decision making narrative: This is a 73-year-old female chief complain of nausea, left flank pain, dark urine, feeling fatigued, nocturnal cough, subjective fever. Patient was treated with Bactrim DS for 10 days in and of April for bladder infection. However she felt as the infection was not co mpletely treated since she was not feeling completely well with. She was followed up with Dr. Burton and provided another urine sample but the clinic had not contacted her for additional treatment. Her urine test was consistent with infection. Her white count was mildly elevated with elevation in neutrophil. Her chest x-ray shows cardiomegaly with possible early right lobe pneumonia. The BNP was 128. Her INR was 1.9 that was followed up by [facility] on 05/20/19. She was treated with normal saline 500 mL with Rocephin 1 g IV prior to DC to home. Her urine is being cultured at this time. She is DC to home with Levaquin 750 mg once a day dose for 5 days which should start tomorrow. I discussed in length with the patient that she needs to be closely followed up for INR since Levaquin may increase the level. We discussed in length return precautions as well. She was to follow up with her PCP in 2-3 days for recheck. Patient verbalized the understanding and agrees with treatment plan. <Jeison Napoles DO - Last Filed: 05/25/19 04:32> Lab Data Lab Results 0805/23/19 05/23/19 Range/Units 13:15 14:55 14:55 WBC 11.7 H (4.5-11.0) X10^3/uL RBC 4.57 (4.0-5.2) X10^6/uL Hgb 14.3 (12.0-16.0) g/dL Hct 41.8 (36-46) % MCV 91.4 (80-100) fL MCH 31.3 (26-34) PG MCHC 34.2 (30-36) % RDW 13.2 (11.6-14.8) % Plt Count 279 (150-400) X10^3/uL Neut % (Auto) 71.6 (50-75) % Lymph % (Auto) 19.3 L (25-40) % Redwood % (Auto) 6.9 (3-14) % Eos % (Auto) 1.7 L (2-4) % Baso % (Auto) 0.5 (0-2) % Neut # (Auto) 8400 H (6570-7621) /uL Lymph # (Auto) 2300 (2517-0757) /uL Redwood # (Auto) 800 (0-900) /uL Eos # (Auto) 200 (0-450) /uL Baso # (Auto) 100 (0-100) /uL Sodium 138 (137-145) mmol/L Potassium 4.6 (3.4-5.1) mmol/L Chloride 104 (98-107) mmol/L Carbon Dioxide 25 (22-32) mmol/L BUN 15 (7-17) mg/dL Creatinine 0.80 (0.52-1.04) mg/dL Estimated GFR > 60.0 (>60) mL/min BUN/Creatinine Ratio 18.8 (6-22) Glucose 117 H (80-110) mg/dL Lactate (0.7-2.1) mmol/L Calcium 9.4 (8.4-10.2) mg/dL B-Natriuretic Peptide 128 H (<100) Urine Color Brown Urine Appearance Sl cloudy Urine pH 5.0 (4.5-8.0) Ur Specific [place] 1.010 (1.000-1.035) Urine Protein 1+ H (Negative) Urine Glucose (UA) Negative (Negative) g/dL Urine Ketones Negative (NEGATIVE) Urine Occult Blood 3+ H (Negative) Urine Nitrate Negative (Negative) Urine Bilirubin Negative (NEGATIVE) Urine Urobilinogen 0.2 (0.2) E.U./dL Ur Leukocyte Esterase Trace H (NEGATIVE) Urine RBC >100/hpf H (0-5/HPF) Urine WBC 0-1/hpf (0-5/HPF) Amorphous Sediment 1+ Urine Bacteria Few (2-10) H (None) Ur Culture Indicated? Specimen cultured 05/23/19 Range/Units 14:55 WBC (4.5-11.0) X10^3/uL RBC (4.0-5.2) X10^6/uL Hgb (12.0-16.0) g/dL Hct (36-46) % MCV (80-100) fL MCH (26-34) PG MCHC (30-36) % RDW (11.6-14.8) % Plt Count (150-400) X10^3/uL Neut % (Auto) (50-75) % Lymph % (Auto) (25-40) % Redwood % (Auto) (3-14) % Eos % (Auto) (2-4) % Baso % (Auto) (0-2) % Neut # (Auto) (3419-7624) /uL Lymph # (Auto) (4508-7516) /uL [place]wood # (Auto) (0-900) /uL Eos # (Auto) (0-450) /uL Baso # (Auto) (0-100) /uL Sodium (137-145) mmol/L Potassium (3.4-5.1) mmol/L Chloride (98-107) mmol/L Carbon Dioxide (22-32) mmol/L BUN (7-17) mg/dL Creatinine (0.52-1.04) mg/dL Estimated GFR (>60) mL/min BUN/Creatinine Ratio (6-22) Glucose (80-110) mg/dL Lactate 1.6 (0.7-2.1) mmol/L Calcium (8.4-10.2) mg/dL B-Natriuretic Peptide (<100) Urine Color Urine Appearance Urine pH (4.5-8.0) Ur Specific [place] (1.000-1.035) Urine Protein (Negative) Urine Glucose (UA) (Negative) g/dL Urine Ketones (NEGATIVE) Urine Occult Blood (Negative) Urine Nitrate (Negative) Urine Bilirubin (NEGATIVE) Urine Urobilinogen (0.2) E.U./dL Ur Leukocyte Esterase (NEGATIVE) Urine RBC (0-5/HPF) Urine WBC (0-5/HPF) Amorphous Sediment Urine Bacteria (None) Ur Culture Indicated? Discharge Plan Departure Patient Disposition: Home Clinical Impression: Acute pyelonephritis Pneumonia Qualifiers: Pneumonia type: due to unspecified organism Laterality: right Lung location: lower lobe of lung Qualified Code(s): J18.1 - Lobar pneumonia, unspecified organism Discharge Date/Time: 05/23/19 17:09 Interventions: ED Discharge Assessment Last Done: 05/23/19 17:08 Instructions: DI for Kidney Infection, DI for Pneumonia -- Adult Activity Restrictions/Additional Instructions: You have been diagnosed with [kidney infection and possible early pneumonia in R lower lobe. Your urine culture is being done at this time. You'll be called if you need medication changed to treat you're infection]. What to do: *Take your medications as directed. Levaquin is once a day does for next 5 days. Please start this medication tomorrow since you have received IV antibiotic medication in the ED. This may cause you're INR changes. Please contact Coumadin clinic on Friday morning and have your INR checked frequently. Also, he can use Zofran only as needed for nausea. *Follow up with your primary care provider in 2-3 days, call for an appointment. Let them know you were seen in the ED and that we asked you to be seen in follow up. *Return to ED if you have any new, worsening, or concerning symptoms, such as [worsening fever, chills, pain, breathing difficulty, chest pain, unable to tolerate fluids, any acute concerns]. Prescriptions: New ondansetron HCl [Zofran] 4 mg tablet 4 mg PO Q6-8H PRN (Reason: nausea and vomiting) Qty: 7 RF: 0 levofloxacin [Levaquin] 750 mg tablet 750 mg PO DAILY 5 Days RF: 0 No Action MULTIVITAMIN (One Daily Multivitamin) 1 tab PO Q DAY Qty: 0 RF: 0 ASCORBIC ACID (VITAMIN C) 500 mg PO Q DAY Qty: 0 RF: 0 Glucosamine Hydrochloride (#GLUCOSAMINE) 500 mg PO Qty: 0 RF: 0 CALCIUM CARBONATE (CALCIUM CARBONATE (CHEW)) 1,000 mg PO Qty: 0 RF: 0 Fish Oil (#FISH OIL) 1 iu PO Qty: 0 RF: 0 VITAMIN D 400 iu PO Qty: 0 RF: 0 Zinc, Chelated (#ZINC) 10 mg PO Qty: 0 RF: 0 folic acid 0.4 MG tablet 0.4 mg PO QDAY Qty: 0 RF: 0 clobetasol 0.05 % solution 0.05 % Topical QDAY Qty: 50 RF: 0 glipizide [Glucotrol] 10 mg tablet 10 mg PO BIDCC Qty: 180 RF: 3 lisinopril 40 mg tablet 40 mg PO QDAY Qty: 90 RF: 3 metoprolol tartrate [Lopressor] 100 mg tablet 100 mg PO BID Qty: 180 RF: 3 warfarin [Coumadin] 5 mg tablet 5 mg PO .COMPLEX Qty: 90 RF: 3 ranitidine HCl 150 mg tablet 150 mg PO BID Qty: 180 RF: 3 metformin [Glucophage XR] 500 mg tablet extended release 24 hr 1,000 mg PO BID Qty: 360 RF: 3 levothyroxine 100 mcg tablet 100 mcg PO QAM Qty: 90 RF: 3 gabapentin [Neurontin] 300 mg capsule 600 mg PO HS Qty: 180 RF: 3 Referrals: Frandy Burton MD [Primary Care Provider] - <Jeison Napoles DO - Last Filed: 05/25/19 04:32> Cosign ED Attending Alejaature Attestation: I was immediately available in the department for consultation. Documentation has been reviewed. I agree with asse ssment and plan.
[2019-05-23 15:10] LABS: Add Manual Diff / Slide Review NO; Basophils Absolute Auto 100 /uL (0-100); Basophils Percent Auto 0.5 % (0-2); Eosinophils Absolute Auto 200 /uL (0-450); Eosinophils Percent Auto 1.7 % (2-4); Hematocrit 41.8 % (36-46); Hemoglobin 14.3 g/dL (12.0-16.0); Lymphocytes Absolute Auto 2300 /uL (1100-4500); Lymphocytes Percent Auto 19.3 % (25-40); Mean Corpuscular HGB Conc 34.2 % (30-36); Mean Corpuscular Hemoglobin 31.3 PG (26-34); Mean Corpuscular Volume 91.4 fL (80-100); Monocytes Absolute Auto 800 /uL (0-900); Monocytes Percent Auto 6.9 % (3-14); Neutrophils Absolute Auto 8400 /uL (1500-7000); Neutrophils Percent Auto 71.6 % (50-75); Platelet Count 279 X10^3/uL (150-400); Red Blood Cell Count 4.57 X10^6/uL (4.0-5.2); Red Cell Distribution Width 13.2 % (11.6-14.8); White Blood Cell Count 11.7 X10^3/uL (4.5-11.0)
[2019-05-23 15:22] LABS: BUN Creatinine Ratio 18.8 (6-22); Blood Urea Nitrogen 15 mg/dL (7-17); Calcium 9.4 mg/dL (8.4-10.2); Carbon Dioxide 25 mmol/L (22-32); Chloride 104 mmol/L (98-107); Estimated Glomerular Filt Rate > 60.0 mL/min (>60); Glucose 117 mg/dL (80-110); HEMOLYSIS < 15 (0-50); Potassium 4.6 mmol/L (3.4-5.1); Sodium 138 mmol/L (137-145)
[2019-05-23 15:35] LABS: B Type Natriuretic Peptide 128 (<100)
[2019-05-23 15:43] LABS: Lactate (Lactic Acid) 1.6 mmol/L (0.7-2.1)
[2019-05-23] MEDS: CEFTRIAXONE 1 GM/50 ML FROZ.PIGGY IV (16:01)
[2019-05-23] MEDS: SODIUM CHLORIDE 0.9% 500 ML 1000 ML IV (16:01)
[2019-05-23 17:00] VITALS: BP 145/76; PULSE 77; RESP 16; O2SAT 98
== END 2019-05-23 17:09 | disposition home or self-care (01) ==
PROVIDERS: Emergency Provider Nurse Practitioner Family; PCP Family Medicine
DX: N12 Tubulo-interstitial nephritis, not specified as acute or chronic (principal); J18.1 Lobar pneumonia, unspecified organism
CPT/HCPCS: 36415; 71045; 80048; 81001; 83605; 83880; 85025; 87086; 96365; 99283; 99284

== ENCOUNTER → 2019-06-10 11:37 | Outpatient (CLI) | payer MEDICARE, OTHER, SELFPAY ==
--- NOTE | 2019-06-10 11:39 | DI.CT.S_ITS ---
PROCEDURE: CT KIDNEY URETER BLADDER (KUB) INDICATIONS: hematuria TECHNIQUE: Noncontrast 5 mm thick sections acquired from the diaphragms to the symphysis. 5 mm thick coronal and sagittal reformats were then performed. For radiation dose reduction, the following was used: automated exposure control, adjustment of mA and/or kV according to patient size. COMPARISON: CXR 05/23/2019. FINDINGS: Image quality: Excellent. Evaluation of the solid parenchymal organs is limited without IV contrast. Lung bases: Increased interstitial thickening at the lung bases which may be due to pulmonary edema. No pleural effusion. Heart size is within normal limits. Coronary artery calcifications. Urinary system: Both kidneys are normal in size. A 3 mm calculus at the left UVJ, (2/80). No significant hydronephrosis. Nonobstructing 3 mm calculus in the left renal pelvis, (4/39). Both ureters appear non-dilated throughout their expected courses. Bladder wall thickness is normal. Other solid organs: Liver is normal in size. Hepatic steatosis. Calcified granuloma in the right lobe. Gallbladder is nondistended. Small calcified gallstones. Pancreas is normal in contours. Spleen is normal in size. Small splenic calcified granuloma. No adrenal nodules. Peritoneum and bowel: Unenhanced bowel loops demonstrate normal wall thickness and caliber. No free fluid or air. Nodes and vessels: No retroperitoneal or mesenteric adenopathy by size criteria. Small lymph node adjacent to the distal esophagus. Aorta and inferior vena cava are normal in caliber. Abdominal wall: Tiny periumbilical fat-containing hernia. Pelvis: No free pelvic fluid. No inguinal hernias or adenopathy. Bones: No suspicious bony lesions. No vertebral body compression fractures. IMPRESSION: 1. Left ureterovesicular junction kidney stone measuring 3 mm. No significant hydronephrosis. 2. Small additional nonobstructing left kidney stone. 3. Cholelithiasis. Hepatic steatosis. Dictated by: Kip Goode M.D. on 06/10/2019 at 13:17 Approved by: Kip Goode M.D. on 06/10/2019 at 13:28
== END ==
PROVIDERS: PCP Family Medicine; Visit Provider Family Medicine
DX: N20.0 Calculus of kidney (principal); K80.20 Calculus of gallbladder without cholecystitis without obstruction; K76.0 Fatty (change of) liver, not elsewhere classified
CPT/HCPCS: 74176

== ENCOUNTER → 2019-08-09 14:19 | Outpatient (CLI) | payer MEDICARE, OTHER, SELFPAY | PROVIDERS: PCP Family Medicine; Visit Provider Family Medicine | DX: E11.9 Type 2 diabetes mellitus without complications (principal) | CPT/HCPCS: 36415; 83036 ==

== ENCOUNTER → 2020-02-11 15:53 | Outpatient (CLI) | payer MEDICARE, OTHER, SELFPAY ==
[2020-02-11 17:11] LABS: Appearance Urine UA SL CLOUDY; Bilirubin Urine UA NEGATIVE (NEGATIVE); Color Urine UA YELLOW; Glucose Urine UA NEGATIVE (Negative); Ketones Urine UA NEGATIVE (NEGATIVE); Leukocyte Esterase Urine UA 1+ (NEGATIVE); Nitrite Urine UA NEGATIVE (Negative); Occult Blood Urine UA TRACE-INTACT (Negative); Protein Urine UA NEGATIVE (Negative); Urobilinogen Urine UA 0.2 E.U./dL (0.2)
[2020-02-11 17:13] LABS: pH Urine UA 5.5 (4.5-8.0)
[2020-02-11 17:27] LABS: RBC Urine 0-1/HPF (0-5/HPF); WBC Urine 30-100/HPF (0-5/HPF)
[2020-02-11 17:28] LABS: Amorphous Sediment Urine 1+; Bacteria Urine Many (>30); Culture Indicated Urine Specimen Cultured; Mucus Urine 1+ (Negative); Squamous Epithelial Cell Urine 0-1 /HPF (0-5/HPF)
== END ==
PROVIDERS: PCP Family Medicine; Referring Provider Family Medicine; Visit Provider Family Medicine
DX: R30.0 Dysuria (principal)
CPT/HCPCS: 81001; 87077; 87086; 87186

== ENCOUNTER → 2020-05-26 13:54 | Outpatient (CLI) | payer MEDICARE, OTHER, SELFPAY | PROVIDERS: PCP Family Medicine; Visit Provider Physician Assistant | DX: R30.0 Dysuria (principal) | CPT/HCPCS: 87077; 87086; 87186 ==

== ENCOUNTER → 2020-06-06 11:09 | Outpatient (CLI) | payer MEDICARE, OTHER, SELFPAY ==
[2020-06-06 13:41] LABS: Add Manual Diff / Slide Review NO; Basophils Absolute Auto 100 /uL (0-100); Basophils Percent Auto 0.6 % (0-2); Eosinophils Absolute Auto 200 /uL (0-450); Eosinophils Percent Auto 2.3 % (2-4); Hemoglobin 14.3 g/dL (12.0-16.0); Lymphocytes Absolute Auto 2100 /uL (1100-4500); Lymphocytes Percent Auto 22.5 % (25-40); Mean Corpuscular HGB Conc 34.1 % (30-36); Mean Corpuscular Hemoglobin 31.7 PG (26-34); Mean Corpuscular Volume 93.1 fL (80-100); Monocytes Absolute Auto 600 /uL (0-900); Monocytes Percent Auto 6.7 % (3-14); Neutrophils Absolute Auto 6400 /uL (1500-7000); Neutrophils Percent Auto 67.9 % (50-75); Platelet Count 278 X10^3/uL (150-400); Red Blood Cell Count 4.52 X10^6/uL (4.0-5.2); Red Cell Distribution Width 13.4 % (11.6-14.8); White Blood Cell Count 9.4 X10^3/uL (4.5-11.0)
[2020-06-06 14:03] LABS: Alanine Aminotransferase 19 IU/L (<35); Albumin 4.1 g/dL (3.5-5.0); Albumin Globulin Ratio 1.3 (1.0-2.8); Alkaline Phosphatase 130 U/L (38-126); Aspartate Aminotransferase 27 IU/L (14-36); BUN Creatinine Ratio 19.2 (6-22); Bilirubin Total 0.8 mg/dL (0.2-1.3); Blood Urea Nitrogen 14 mg/dL (7-17); Calcium 9.9 mg/dL (8.4-10.2); Carbon Dioxide 27 mmol/L (22-32); Chloride 105 mmol/L (98-107); Cholesterol 180 mg/dL (140-199); Estimated Glomerular Filt Rate > 60.0 mL/min (>60); Globulin 3.1 g/dL (1.7-4.1); Glucose 157 mg/dL (80-110); HDL Cholesterol 43 mg/dL (40-60); HEMOLYSIS < 15 (0-50); Hemoglobin A1C% w Est Avg Glu 6.5 % (4.0-6.0); LDL Cholesterol Calculated 104 mg/dL (<100); Sodium 141 mmol/L (137-145); Total Protein 7.2 g/dL (6.3-8.2); Triglycerides 167 mg/dL (35-150)
[2020-06-06 14:04] LABS: Potassium 5.6 mmol/L (3.4-5.1)
[2020-06-06 14:31] LABS: TSH w/ Reflex to FT4 1.87 uIU/mL (0.47-4.68)
== END ==
PROVIDERS: PCP Family Medicine; Referring Provider Family Medicine; Visit Provider Family Medicine
DX: E03.9 Hypothyroidism, unspecified (principal); E11.9 Type 2 diabetes mellitus without complications; E78.5 Hyperlipidemia, unspecified; I10 Essential (primary) hypertension
CPT/HCPCS: 36415; 80053; 80061; 83036; 84443; 85025

== ENCOUNTER → 2020-07-03 10:52 | Outpatient (CLI) | payer MEDICARE, OTHER, SELFPAY ==
[2020-07-03 11:21] LABS: Appearance Urine UA SL CLOUDY; Bilirubin Urine UA NEGATIVE (NEGATIVE); Color Urine UA YELLOW; Glucose Urine UA NEGATIVE (Negative); Ketones Urine UA NEGATIVE (NEGATIVE); Leukocyte Esterase Urine UA 2+ (NEGATIVE); Nitrite Urine UA NEGATIVE (Negative); Occult Blood Urine UA 3+ (Negative); Protein Urine UA TRACE (Negative); Specific Gravity Urine UA 1.015 (1.000-1.035); Urobilinogen Urine UA 0.2 E.U./dL (0.2)
[2020-07-03 11:44] LABS: Bacteria Urine Few (2-10); RBC Urine 30-100/HPF (0-5/HPF); Squamous Epithelial Cell Urine 1-5 /HPF (0-5/HPF); WBC Urine >100/HPF (0-5/HPF)
[2020-07-03 11:45] LABS: Culture Indicated Urine Specimen Cultured
== END ==
PROVIDERS: PCP Family Medicine; Referring Provider Family Medicine; Visit Provider Family Medicine
DX: R30.0 Dysuria (principal)
CPT/HCPCS: 81003; 81015; 87077; 87086; 87186

== ENCOUNTER → 2020-09-19 12:21 | Outpatient (CLI) | payer MEDICARE, OTHER, SELFPAY ==
[2020-09-19 13:55] LABS: Appearance Urine UA SL CLOUDY; Bilirubin Urine UA NEGATIVE (NEGATIVE); Color Urine UA YELLOW; Glucose Urine UA NEGATIVE (Negative); Ketones Urine UA NEGATIVE (NEGATIVE); Leukocyte Esterase Urine UA 2+ (NEGATIVE); Nitrite Urine UA NEGATIVE (Negative); Occult Blood Urine UA 3+ (Negative); Protein Urine UA NEGATIVE (Negative); Urobilinogen Urine UA 0.2 E.U./dL (0.2)
[2020-09-19 13:58] LABS: Bacteria Urine None Seen; pH Urine UA 6.5 (4.5-8.0)
[2020-09-19 14:02] LABS: Culture Indicated Urine Specimen Cultured; RBC Urine 30-100/HPF (0-5/HPF); Squamous Epithelial Cell Urine 1-5 /HPF (0-5/HPF); WBC Urine 30-100/HPF (0-5/HPF)
== END ==
PROVIDERS: PCP Family Medicine; Referring Provider Family Medicine; Visit Provider Family Medicine
DX: R30.0 Dysuria (principal); R31.9 Hematuria, unspecified
CPT/HCPCS: 81003; 81015; 87077; 87086; 87186

== ENCOUNTER → 2020-10-04 13:18 | Outpatient (CLI) | payer MEDICARE, OTHER, SELFPAY | PROVIDERS: PCP Family Medicine; Visit Provider Physician Assistant | DX: N30.01 Acute cystitis with hematuria (principal) | CPT/HCPCS: 87077; 87086; 87186 ==

== ENCOUNTER → 2020-11-09 15:09 | Outpatient (CLI) | payer MEDICARE, SELFPAY ==
[2020-11-09] MEDS: COVID-19 VACC #1, MRNA(MOD) 100 MCG/0.5 ML VIAL IM (15:16)
== END ==
PROVIDERS: PCP Family Medicine; Visit Provider Internal Medicine
DX: Z23 Encounter for immunization (principal)
CPT/HCPCS: 0011A; 91301

== ENCOUNTER → 2020-12-07 08:47 | Outpatient (CLI) | payer MEDICARE, OTHER, SELFPAY ==
[2020-12-07 09:17] LABS: Hemoglobin A1C% w Est Avg Glu 6.3 % (4.0-6.0)
[2020-12-07 09:18] LABS: Add Manual Diff / Slide Review NO; Basophils Absolute Auto 100 /uL (0-100); Basophils Percent Auto 0.6 % (0-2); Eosinophils Absolute Auto 300 /uL (0-450); Eosinophils Percent Auto 3.3 % (2-4); Hematocrit 41.2 % (36-46); Hemoglobin 14.1 g/dL (12.0-16.0); Lymphocytes Absolute Auto 2600 /uL (1100-4500); Lymphocytes Percent Auto 28.3 % (25-40); Mean Corpuscular HGB Conc 34.3 % (30-36); Mean Corpuscular Hemoglobin 31.6 PG (26-34); Mean Corpuscular Volume 92.2 fL (80-100); Monocytes Absolute Auto 800 /uL (0-900); Monocytes Percent Auto 8.4 % (3-14); Neutrophils Absolute Auto 5400 /uL (1500-7000); Neutrophils Percent Auto 59.4 % (50-75); Platelet Count 272 X10^3/uL (150-400); Red Blood Cell Count 4.47 X10^6/uL (4.0-5.2); Red Cell Distribution Width 13.2 % (11.6-14.8); White Blood Cell Count 9.1 X10^3/uL (4.5-11.0)
[2020-12-07 09:24] LABS: Alanine Aminotransferase 20 IU/L (<35); Albumin Globulin Ratio 1.3 (1.0-2.8); Alkaline Phosphatase 134 U/L (38-126); Aspartate Aminotransferase 32 IU/L (14-36); BUN Creatinine Ratio 19.7 (6-22); Bilirubin Total 0.5 mg/dL (0.2-1.3); Blood Urea Nitrogen 14 mg/dL (7-17); Calcium 9.5 mg/dL (8.4-10.2); Carbon Dioxide 27 mmol/L (22-32); Chloride 106 mmol/L (98-107); Cholesterol 157 mg/dL (140-199); Estimated Glomerular Filt Rate > 60.0 mL/min (>60); Globulin 3.2 g/dL (1.7-4.1); Glucose 115 mg/dL (80-110); HDL Cholesterol 38 mg/dL (40-60); HEMOLYSIS < 15 (0-50); LDL Cholesterol Calculated 95 mg/dL (<100); Potassium 4.2 mmol/L (3.4-5.1); Sodium 139 mmol/L (137-145); Total Protein 7.2 g/dL (6.3-8.2); Triglycerides 120 mg/dL (35-150)
[2020-12-07 10:05] LABS: Thyroid Stimulating Hormone 2.12 uIU/mL (0.47-4.68)
== END ==
PROVIDERS: PCP Family Medicine; Referring Provider Family Medicine; Visit Provider Family Medicine
DX: E11.9 Type 2 diabetes mellitus without complications (principal); I10 Essential (primary) hypertension; I48.91 Unspecified atrial fibrillation; E03.9 Hypothyroidism, unspecified
CPT/HCPCS: 36415; 80053; 80061; 83036; 84443; 85025

== ENCOUNTER → 2020-12-07 15:15 | Outpatient (CLI) | payer MEDICARE, OTHER, SELFPAY ==
[2020-12-07] MEDS: COVID-19 VACC #2, MRNA(MOD) 100 MCG/0.5 ML VIAL IM (15:25)
== END ==
PROVIDERS: PCP Family Medicine; Visit Provider Internal Medicine
DX: Z23 Encounter for immunization (principal)
CPT/HCPCS: 0012A; 91301

== ENCOUNTER → 2020-12-21 14:13 | Outpatient (CLI) | payer MEDICARE, OTHER, SELFPAY | PROVIDERS: PCP Family Medicine; Visit Provider Nurse Practitioner | DX: R30.0 Dysuria (principal); I48.91 Unspecified atrial fibrillation; Z79.01 Long term (current) use of anticoagulants | CPT/HCPCS: 85610; 87077; 87086; 87186 ==

== ENCOUNTER → 2021-01-31 09:03 | Outpatient (CLI) | payer MEDICARE, OTHER, SELFPAY | PROVIDERS: PCP Family Medicine; Visit Provider Student in an Organized Health Care Education/Training Program | DX: N34.3 Urethral syndrome, unspecified (principal) | CPT/HCPCS: 87077; 87086; 87186 ==

== ENCOUNTER → 2021-03-09 15:14 | Outpatient (CLI) | payer MEDICARE, OTHER, SELFPAY ==
[2021-03-09 16:47] LABS: Add Manual Diff / Slide Review NO; Basophils Absolute Auto 100 /uL (0-100); Basophils Percent Auto 0.6 % (0-2); Eosinophils Absolute Auto 400 /uL (0-450); Eosinophils Percent Auto 3.8 % (2-4); Hematocrit 42.9 % (36-46); Hemoglobin 14.4 g/dL (12.0-16.0); Lymphocytes Absolute Auto 3900 /uL (1100-4500); Lymphocytes Percent Auto 35.6 % (25-40); Mean Corpuscular HGB Conc 33.5 % (30-36); Mean Corpuscular Hemoglobin 31.2 PG (26-34); Mean Corpuscular Volume 93.1 fL (80-100); Monocytes Absolute Auto 900 /uL (0-900); Monocytes Percent Auto 7.8 % (3-14); Neutrophils Absolute Auto 5800 /uL (1500-7000); Neutrophils Percent Auto 52.2 % (50-75); Platelet Count 275 X10^3/uL (150-400); Red Cell Distribution Width 13.2 % (11.6-14.8); White Blood Cell Count 11.1 X10^3/uL (4.5-11.0)
[2021-03-09 17:07] LABS: Alanine Aminotransferase 21 IU/L (<35); Albumin 4.2 g/dL (3.5-5.0); Albumin Globulin Ratio 1.2 (1.0-2.8); Alkaline Phosphatase 123 U/L (38-126); Aspartate Aminotransferase 32 IU/L (14-36); BUN Creatinine Ratio 22.8 (6-22); Bilirubin Total 0.4 mg/dL (0.2-1.3); Blood Urea Nitrogen 18 mg/dL (7-17); Calcium 9.9 mg/dL (8.4-10.2); Carbon Dioxide 26 mmol/L (22-32); Chloride 104 mmol/L (98-107); Cholesterol 181 mg/dL (140-199); Estimated Glomerular Filt Rate > 60.0 mL/min (>60); Globulin 3.5 g/dL (1.7-4.1); Glucose 71 mg/dL (80-110); HDL Cholesterol 40 mg/dL (40-60); HEMOLYSIS < 15 (0-50); LDL Cholesterol Calculated 101 mg/dL (<100); Sodium 140 mmol/L (137-145); Total Protein 7.7 g/dL (6.3-8.2); Triglycerides 198 mg/dL (35-150)
[2021-03-09 17:30] LABS: Creatinine Urine Random 24.7 mg/dL
[2021-03-09 17:32] LABS: Microalbumi Creatinin Ratio Ur 28.3 ug/mg CR (<30); Microalbumin Urine Random 0.7 mg/dL (0-1.6)
== END ==
PROVIDERS: PCP Family Medicine; Referring Provider Family Medicine; Visit Provider Family Medicine
DX: E03.9 Hypothyroidism, unspecified (principal); E11.49 Type 2 diabetes mellitus with other diabetic neurological complication; I10 Essential (primary) hypertension
CPT/HCPCS: 36415; 80053; 80061; 82043; 82570; 84443; 85025

== ENCOUNTER → 2021-09-12 09:39 | Outpatient (CLI) | payer MEDICARE, OTHER, SELFPAY ==
[2021-09-12 10:55] LABS: Hemoglobin A1C% w Est Avg Glu 6.3 % (4.0-6.0)
[2021-09-12 16:14] LABS: Creatinine Urine Random 133.6 mg/dL
[2021-09-12 16:19] LABS: Microalbumi Creatinin Ratio Ur 15.7 ug/mg CR (<30); Microalbumin Urine Random 2.1 mg/dL (0-1.6)
== END ==
PROVIDERS: PCP Family Medicine; Referring Provider Family Medicine; Visit Provider Family Medicine
DX: E11.9 Type 2 diabetes mellitus without complications (principal)
CPT/HCPCS: 36415; 82043; 82570; 83036

== ENCOUNTER 2022-01-17 14:52 | Emergency (ER) | payer MEDICARE, OTHER, SELFPAY ==
[2022-01-17 15:06] VITALS: BP 168/91; PULSE 63; RESP 16; TEMP 36.7; O2SAT 98; BMI 40.7
--- NOTE | 2022-01-17 15:12 | DI.RAD.S_ITS ---
PROCEDURE: XR KNEE RT 3V INDICATIONS: fall TECHNIQUE: 3 views of the knee were acquired. COMPARISON: None. FINDINGS: Bones: No fractures or dislocations. No suspicious bony lesions. Soft tissues: No joint effusion. No suspicious soft tissue calcifications. IMPRESSION: No acute finding. Dictated by: Frandy Perez M.D. on 01/17/2022 at 16:10 Approved by: Frandy Perez M.D. on 01/17/2022 at 16:13
--- NOTE | 2022-01-17 16:32 | ED.FALL ---
HPI - Fall <Jaguar Pringle PA-C - Last Filed: 01/17/22 20:39> General Chief Complaint: Fall Stated Complaint: rt knee is messed up s/p fall 10 days ago Time Seen by Provider: 01/17/22 16:22 History of Present Illness HPI Narrative: Patient is a 76-year-old female presenting to the emergency department today for evaluation of right knee pain. Patient states that she experienced a mechanical fall approximately 2 weeks ago and states that yesterday while attempting to get into her car she twisted her right knee and began to experience intense pain. She explains that since that time she has been able to partially bear weight on the right lower extremity. Of note, patient states that she does have access to a walker and plans to use that while ambulating. She denies pain or injury elsewhere and states she did not hit her head or lose consciousness as result of a fall. She denies fever, chills, chest pain, cough, shortness of breath, nausea, vomiting, diarrhea, dysuria, hematuria, abdominal pain, constipation, numbness and tingling in the lower extremities, or any other concerning symptoms. No further concerns were voiced at this time. Related Data Home Medications Medication Instructions Recorded Confirmed ASCORBIC ACID (VITAMIN C) 500 mg PO Q DAY #0 06/04/12 09/13/21 CALCIUM CARBONATE (CALCIUM 1,000 mg PO #0 06/04/12 09/13/21 CARBONATE (CHEW)) Fish Oil (#FISH OIL) 1 iu PO #0 06/04/12 09/13/21 Glucosamine Hydrochloride 500 mg PO #0 06/04/12 09/13/21 (#GLUCOSAMINE) MULTIVITAMIN (One Daily 1 tab PO Q DAY #0 06/04/12 09/13/21 Multivitamin) VITAMIN D 400 iu PO #0 06/04/12 09/13/21 Zinc, Chelated (#ZINC) 10 mg PO #0 06/04/12 09/13/21 folic acid 400 mcg tablet 0.4 mg PO QDAY #0 06/04/12 09/13/21 acyclovir 400 mg tablet 400 mg PO BID 11/22/21 11/22/21 ofloxacin 0.3 % eye drops 1 drp EYE-LEFT QID ml 11/22/21 11/22/21 Previous Rx's Medication Instructions Recorded atorvastatin 10 mg tablet 10 mg PO DAILY #90 tab 09/02/20 famotidine 20 mg tablet See Rx Instructions .ROUTE 06/07/21 .COMPLEX #180 tab levothyroxine 100 mcg tablet See Rx Instructions .ROUTE 06/07/21 .COMPLEX #90 tab glipizide 10 mg tablet (Glucotrol) 10 mg PO BIDCC #180 tab 09/04/21 lisinopril 40 mg tablet 40 mg PO QDAY #90 tab 09/04/21 metformin 500 mg tablet,extended 1,000 mg PO BID #360 tab 09/04/21 release 24 hr metoprolol tartrate 100 mg tablet 100 mg PO BID #180 tab 09/04/21 (Lopressor) warfarin 5 mg tablet 5 mg PO .COMPLEX #90 tab 09/04/21 gabapentin 300 mg capsule See Rx Instructions .ROUTE 12/03/21 .COMPLEX #360 capsule Allergies Allergy/AdvReac Type Severity Reaction Status Date / Time No Known Drug Allergies Allergy Verified 09/13/21 13:58 Review of Systems <Jaguar Pringle PA-C - Last Filed: 01/17/22 20:39> Constitutional Constitutional: Denies chills, Denies fatigue, Denies fever(s), Denies frequent falls, Denies lethargy and Denies weakness Eyes Eyes: Denies loss of vision ENT Ears, Nose, Mouth, and Throat: Denies dizziness and Denies neck pain Cardiovascular Cardiovascular: Denies chest pain, Denies irregular heart rhythm, Denies lightheadedness, Denies palpitations, Denies dyspnea, Denies dyspnea on exertion and Denies orthopnea Respiratory Respiratory: Denies cough, Denies dyspnea, Denies dyspnea on exertion and Denies wheezing Gastrointestinal Gastrointestinal: Denies abdominal pain, Denies change in bowel habits, Denies diarrhea, Denies nausea and Denies vomiting Genitourinary Genitourinary: Denies hematuria, Denies flank pain, Denies urinary incontinence and Denies urinary urgency Musculoskeletal Musculoskeletal: Denies back pain, Reports arthralgias (Right knee), Denies muscle weakness, Denies neck pain, Denies numbness and Denies tingling Integumentary/Breasts Skin/Breast: Denies pruritus, Denies erythema, Denies rash and Denies wounds Neurologic Neurologic: Denies behavioral changes, Denies confusion, Denies dizziness, Denies frequent falls, Denies loss of vision, Denies numbness, Denies tingling and Denies weakness Psychiatric Psychiatric: Denies behavioral changes and Denies confusion Endocrine Endocrine: Denies fatigue and Denies palpitations Allergic/Immunologic Allergic/Immunologic: Denies wheezing Patient History <Jaguar Pringle PA-C - Last Filed: 01/17/22 20:39> Medical History Anemia Atrial fibrillation (~2015) Chicken pox Diabetes mellitus Diabetic neuropathy Fibroids Gallbladder calculus GERD (gastroesophageal reflux disease) Heavy menstrual period HTN (hypertension) Hypothyroidism Kidney stones Measles Mumps Paresthesia Tinnitus Vision disorder Surgical History History of hysterectomy Family History Father Stroke Mother Heart disease Social History marital status: Smoking Status: Never smoker alcohol intake: current substance use type: does not use Smoking Status: Never smoker Exam <Jaguar Pringle PA-C - Last Filed: 01/17/22 20:39> Narrative Exam Narrative: GENERAL: 76 year old patient appears stated age. Well-developed patient, in no acute distress. HEAD: Atraumatic. Normocephalic. EYES: Pupils equal round and reactive. Extraocular motions intact. No scleral icterus. No injection or drainage. ENT: Nose without bleeding, purulent drainage. Throat without erythema, tonsillar hypertrophy or exudate. Airway patent. NECK: Trachea midline. Non tender CARDIOVASCULAR: Regular rate and rhythm without murmurs, gallops, or rubs. RESPIRATORY: Clear to auscultation. Breath sounds equal bilaterally. No wheezes, rales, or rhonchi. GASTROINTESTINAL: Abdomen soft, non-tender, nondistended. EXTREMITIES: No edema. Mild tenderness to palpation appreciated along the patella with direct pressure, no significant midline joint tenderness of the right knee. No appreciable joint laxity appreciated. Good sensation light touch appreciated throughout the bilateral lower extremities. Gross motor function intact throughout the bilateral lower extremities. BACK: Nontender without deformity or crepitance. No flank tenderness. NEURO: AOx3. SKIN: No rash or erythema of visible areas Initial Vital Signs Initial Vital Signs: Vital Signs Temperature 98.1 F 01/17/22 15:06 Pulse Rate 63 01/17/22 15:06 Respiratory Rate 16 01/17/22 15:06 Blood Pressure 168/91 H 01/17/22 15:06 Pulse Oximetry 98 01/17/22 15:06 <Nay Phelps DO - Last Filed: 01/18/22 07:09> Initial Vital Signs Initial Vital Signs: Vital Signs Temperature 98.1 F 01/17/22 15:06 Pulse Rate 63 01/17/22 15:06 Respiratory Rate 16 01/17/22 15:06 Blood Pressure 168/91 H 01/17/22 15:06 Pulse Oximetry 98 01/17/22 15:06 Course <Jaguar Pringle PA-C - Last Filed: 01/17/22 20:39> Course Course Narrative: Right knee x-ray obtained. Orders Ordered: ED Orders 01/17/22 15:12 XR knee RT 3V Stat Vital Signs Vital signs: Vital Signs - 8 hr 01/17/22 15:06 01/17/22 16:49 Temperature 98.1 F Pulse Rate 63 58 L Respiratory Rate 16 20 Blood Pressure 168/91 H 156/76 H Pulse Oximetry 98 97 <DO Palmira Palencia Last Filed: 01/18/22 07:09> Orders Ordered: ED Orders 01/17/22 15:12 XR knee RT 3V Stat Vital Signs Vital signs: Vital Signs - 8 hr 01/17/22 15:06 01/17/22 16:49 Temperature 98.1 F Pulse Rate 63 58 L Respiratory Rate 16 20 Blood Pressure 168/91 H 156/76 H Pulse Oximetry 98 97 MDM - Fall <REKHA Mirza Last Filed: 01/17/22 20:39> Imaging Data Extremity x-ray #1: Radiologist's Impression: PROCEDURE:? XR KNEE RT 3V ? INDICATIONS:? fall ? TECHNIQUE:? 3 views of the knee were acquired.? ? COMPARISON:? None. ? FINDINGS:? ? Bones:? No fractures or dislocations.? No suspicious bony lesions.? ? Soft tissues:? No joint effusion.? No suspicious soft tissue calcifications.? ? ? IMPRESSION:? No acute finding. ? ? Dictated by: Frandy Perez M.D. on 01/17/2022 at 16:10 ? ? Approved by: Frandy Perez M.D. on 01/17/2022 at 16:13 ? MDM Narrative Medical decision making narrative: Differential diagnosis considered but limited to fracture versus dislocation versus sprain versus strain. Discussed results of x-ray with patient informed her that no acute abnormality was identified today. I urged the patient to apply a compressive sleeve to the right knee as needed for pain management and use a walker while ambulating. Additionally, I did discuss the plan to set up an orthopedic referral for her for further follow-up and evaluation. Patient expresses understanding and agrees to plan. She states at this time she is comfortable being discharged home and is stable for discharge. Strict return precautions were discussed with the patient prior to discharge. Discharge Plan Departure Patient Disposition: Home Clinical Impression: Acute pain of right knee Instructions: DI for Knee Pain Activity Restrictions/Additional Instructions: *You have been diagnosed with acute right knee pain *What to do: *Please continue to take your regular medications as directed. [ ] New medication prescriptions sent to your pharmacy: [ ] [ ] New medication written as a paper prescription [X] No new medications given You were evaluated in the emergency department today for right knee pain. X-ray imaging obtained in the emergency department today did not show signs of acute abnormality such as fracture or dislocation. You can use topical Voltaren gel as needed to alleviate pain and discomfort. This can be obtained [id number] at your preferred pharmacy. Please ensure that you are using a walker to assist you while getting around. Please follow-up with the primary care provider within the next to 3 days for further evaluation. I have worked on setting up an orthopedic follow-up for year, their office should be contacting you to set up an appointment. Do not hesitate to return to the emergency department if you experience worsening pain, swelling, fever, or any other concerning symptoms. *Please follow up with your primary care provider in 2-3 days, call for an appointment. Let them know you were seen in the Emergency Department and that we ask that you be seen in follow up. We will electronically transmit a record of today's note if your PCP is in our system *If you do not have a primary care provider please contact the [facility] Resource line at [phone]. They will ask some questions about your medical history and help get you set up with a doctor in the community. *Return to Emergency Department if you should have any new, worsening or concerning symptoms, such as fever greater than 101 F, shaking chills, worsening pain, persistent vomiting or other bothersome symptoms. Prescriptions: No Action acyclovir 400 mg tablet 400 mg PO BID 0RF ofloxacin 0.3 % drops 1 drp EYE-LEFT QID 0RF atorvastatin 10 mg tablet 10 mg PO DAILY Qty: 90 3RF MULTIVITAMIN (One Daily Multivitamin) 1 tab PO Q DAY Qty: 0 0RF ASCORBIC ACID (VITAMIN C) 500 mg PO Q DAY Qty: 0 0RF Glucosamine Hydrochloride (#GLUCOSAMINE) 500 mg PO Qty: 0 0RF CALCIUM CARBONATE (CALCIUM CARBONATE (CHEW)) 1,000 mg PO Qty: 0 0RF Fish Oil (#FISH OIL) 1 iu PO Qty: 0 0RF VITAMIN D 400 iu PO Qty: 0 0RF Zinc, Chelated (#ZINC) 10 mg PO Qty: 0 0RF folic acid 0.4 MG tablet 0.4 mg PO QDAY Qty: 0 0RF levothyroxine 100 mcg tablet See Rx Instructions .ROUTE .COMPLEX Qty: 90 2RF Dose Instruction: TAKE 1 TABLET BY MOUTH EVERY MORNING Rx Instructions: TAKE 1 TABLET BY MOUTH EVERY MORNING famotidine 20 mg tablet See Rx Instructions .ROUTE .COMPLEX Qty: 180 2RF Dose Instruction: TAKE 1 TABLET BY MOUTH TWICE DAILY Rx Instructions: TAKE 1 TABLET BY MOUTH TWICE DAILY metformin 500 mg tablet extended release 24 hr 1,000 mg PO BID Qty: 360 3RF metoprolol tartrate [Lopressor] 100 mg tablet 100 mg PO BID Qty: 180 3RF warfarin 5 mg tablet 5 mg PO .COMPLEX Qty: 90 3RF Rx Instructions: Take one tab M,W,F and 1/2 tab the other days of the week. lisinopril 40 mg tablet 40 mg PO QDAY Qty: 90 3RF glipizide [Glucotrol] 10 mg tablet 10 mg PO BIDCC Qty: 180 3RF gabapentin 300 mg capsule See Rx Instructions .ROUTE .COMPLEX Qty: 360 2RF Dose Instruction: TAKE 2 CAPSULES (600 MG) BY MOUTH TWICE DAILY Rx Instructions: TAKE 2 CAPSULES (600 MG) BY MOUTH TWICE DAILY Referrals: Frandy Burton MD [Primary Care Provider] - Jacqueline Reilly MD [Physician] - 5-7 days <Nay Phelps DO - Last Filed: 01/18/22 07:09> Cosign ED Attending Cosignature Attestation: I was immediately available in the department for consultation. Documentation has been reviewed. I agree with assessment and plan.
[2022-01-17 16:49] VITALS: BP 156/76; PULSE 58; RESP 20; O2SAT 97
== END 2022-01-17 16:56 | disposition home or self-care (01) ==
PROVIDERS: Emergency Provider Physician Assistant; PCP Family Medicine
DX: M25.561 Pain in right knee (principal)
CPT/HCPCS: 73562; 99281; 99283

== ENCOUNTER → 2022-02-07 12:27 | Outpatient (CLI) | payer MEDICARE, OTHER, SELFPAY ==
[2022-02-07 13:13] LABS: Add Manual Diff / Slide Review NO; Basophils Absolute Auto 0 /uL (0-100); Basophils Percent Auto 0.5 % (0-2); Eosinophils Absolute Auto 200 /uL (0-450); Eosinophils Percent Auto 2.4 % (2-4); Hematocrit 43.6 % (36-46); Hemoglobin 14.8 g/dL (12.0-16.0); Lymphocytes Absolute Auto 2200 /uL (1100-4500); Lymphocytes Percent Auto 23.2 % (25-40); Mean Corpuscular HGB Conc 33.9 % (30-36); Mean Corpuscular Volume 94.5 fL (80-100); Monocytes Absolute Auto 800 /uL (0-900); Monocytes Percent Auto 8.2 % (3-14); Neutrophils Absolute Auto 6200 /uL (1500-7000); Neutrophils Percent Auto 65.7 % (50-75); Platelet Count 256 X10^3/uL (150-400); Red Blood Cell Count 4.61 X10^6/uL (4.0-5.2); Red Cell Distribution Width 13.5 % (11.6-14.8); White Blood Cell Count 9.5 X10^3/uL (4.5-11.0)
[2022-02-07 13:34] LABS: Hemoglobin A1C% w Est Avg Glu 6.8 % (4.0-6.0)
[2022-02-07 13:38] LABS: Alanine Aminotransferase 20 IU/L (<35); Albumin 4.3 g/dL (3.5-5.0); Albumin Globulin Ratio 1.2 (1.0-2.8); Alkaline Phosphatase 133 U/L (38-126); Aspartate Aminotransferase 30 IU/L (14-36); Bilirubin Total 0.8 mg/dL (0.2-1.3); Blood Urea Nitrogen 18 mg/dL (7-17); Calcium 9.2 mg/dL (8.4-10.2); Carbon Dioxide 28 mmol/L (22-32); Chloride 102 mmol/L (98-107); Cholesterol 168 mg/dL (140-199); Estimated Glomerular Filt Rate > 60 mL/min (>60); Globulin 3.5 g/dL (1.7-4.1); Glucose 143 mg/dL (80-110); HDL Cholesterol 42 mg/dL (40-60); HEMOLYSIS < 15 (0-50); LDL Cholesterol Calculated 98 mg/dL (<100); Potassium 4.4 mmol/L (3.4-5.1); Sodium 137 mmol/L (137-145); Total Protein 7.8 g/dL (6.3-8.2); Triglycerides 139 mg/dL (35-150)
[2022-02-07 14:20] LABS: TSH w/ Reflex to FT4 1.82 uIU/mL (0.47-4.68)
[2022-02-07 15:24] LABS: Creatinine Urine Random 129.7 mg/dL
[2022-02-07 15:29] LABS: Microalbumi Creatinin Ratio Ur 27.7 ug/mg CR (<30); Microalbumin Urine Random 3.6 mg/dL (0-1.6)
== END ==
PROVIDERS: PCP Family Medicine; Referring Provider Family Medicine; Visit Provider Family Medicine
DX: E03.9 Hypothyroidism, unspecified (principal); E11.9 Type 2 diabetes mellitus without complications; I10 Essential (primary) hypertension
CPT/HCPCS: 36415; 80053; 80061; 82043; 82570; 83036; 84443; 85025

== ENCOUNTER → 2023-01-16 10:05 | Outpatient (CLI) | payer MEDICARE, OTHER, SELFPAY ==
[2023-01-16 11:39] LABS: Alanine Aminotransferase 22 IU/L (<35); Albumin Globulin Ratio 1.1 (1.0-2.8); Alkaline Phosphatase 121 U/L (38-126); Aspartate Aminotransferase 30 IU/L (14-36); BUN Creatinine Ratio 21.3 (6-22); Bilirubin Total 0.6 mg/dL (0.2-1.3); Blood Urea Nitrogen 16 mg/dL (7-17); Calcium 9.1 mg/dL (8.4-10.2); Carbon Dioxide 27 mmol/L (22-32); Chloride 102 mmol/L (98-107); Cholesterol 174 mg/dL (140-199); Estimated Glomerular Filt Rate > 60 mL/min (>60); Globulin 3.7 g/dL (1.7-4.1); Glucose 155 mg/dL (80-110); HDL Cholesterol 40 mg/dL (40-60); HEMOLYSIS < 15 (0-50); LDL Cholesterol Calculated 106 mg/dL (<100); Potassium 4.6 mmol/L (3.4-5.1); Sodium 137 mmol/L (137-145); Total Protein 7.7 g/dL (6.3-8.2); Triglycerides 139 mg/dL (35-150)
[2023-01-16 12:11] LABS: TSH w/ Reflex to FT4 2.88 uIU/mL (0.47-4.68)
[2023-01-17 06:04] LABS: Labcorp Hemoglobin (Hb) A1c 6.9 % (4.8-5.6)
== END ==
PROVIDERS: PCP Family Medicine; Referring Provider Family Medicine; Visit Provider Family Medicine
DX: E03.9 Hypothyroidism, unspecified; I10 Essential (primary) hypertension; E11.49 Type 2 diabetes mellitus with other diabetic neurological complication
CPT/HCPCS: 36415; 80053; 80061; 83036; 84443

== ENCOUNTER → 2023-01-22 13:11 | Outpatient (CLI) | payer MEDICARE, OTHER, SELFPAY ==
[2023-01-22 15:46] LABS: Creatinine Urine Random 68.2 mg/dL
[2023-01-22 15:50] LABS: Microalbumi Creatinin Ratio Ur 11.7 ug/mg CR (<30); Microalbumin Urine Random 0.8 mg/dL (0-1.6)
== END ==
PROVIDERS: PCP Family Medicine; Referring Provider Family Medicine; Visit Provider Family Medicine
DX: E03.9 Hypothyroidism, unspecified (principal); E11.49 Type 2 diabetes mellitus with other diabetic neurological complication; I10 Essential (primary) hypertension
CPT/HCPCS: 82043; 82570

== ENCOUNTER → 2023-02-04 13:14 | Outpatient (CLI) | payer MEDICARE, OTHER, SELFPAY ==
--- NOTE | 2023-02-04 13:15 | DI.MG.S_ITS ---
BILATERAL DIGITAL DIAGNOSTIC MAMMOGRAM 3D/2D: 02/04/2023 CLINICAL: Left breast lump. Comparison is made to exams dated: 01/06/2017 mammogram, 10/04/2010 mammogram, and 04/24/2005 mammogram - [facility]. There are scattered areas of fibroglandular density in both breasts (category b / 25%-50% glandular tissue). There is an oval equal density mass in the right breast in the posterior depth that is not significantly changed. There is a new 2.2 cm x 2.1 cm irregular high density mass with an indistinct margin in the left breast at 4 o'clock middle depth. This correlates as palpated, with area of clinical concern, and skin marker. There is architectural distortion associated with the mass. No other significant masses, calcifications, or other findings are seen in either breast. IMPRESSION: INCOMPLETE: NEEDS ADDITIONAL IMAGING EVALUATION The new 2.2 cm x 2.1 cm irregular high density mass in the left breast is indeterminate. An ultrasound is recommended for further evaluation and is scheduled to immediately follow this examination. Based on the Tyrer Cuzick model (a risk assessment model) the patient's lifetime risk is 1.9% and her 10 year risk is 0.0%. According to the ACR, ACS, and NCCN guidelines, an annual breast MRI exam along with mammogram is recommended if the patient's lifetime risk is 20% or greater. This exam was interpreted at Station ID: [id number]. NOTE: For mammograms, a report in lay terms will be sent to the patient. Approximately 15% of breast malignancies will not be visualized mammographically. In the management of a palpable breast mass, a negative mammogram must not discourage biopsy of a clinically suspicious lesion. Electronically Signed By: Watson Jaramillo M.D. aty/:02/04/2023 14:18:50 ACR BI-RADS Category 0: Incomplete [id number]
--- NOTE | 2023-02-04 13:15 | DI.US.S_ITS ---
ULTRASOUND OF LEFT BREAST AND AXILLA: 02/04/2023 CLINICAL: Palpable left breast lump. Comparison is made to exams dated: 02/04/2023 mammogram, 01/06/2017 mammogram, 10/04/2010 mammogram, and 04/24/2005 mammogram - [facility]. Color flow and real-time ultrasound of the left breast axilla were performed. Wetzel scale images of the real-time examination were reviewed. There is a 2.6 cm x 2.1 cm x 1.5 cm irregular mass with an indistinct and spiculated margin in the left breast at 5 o'clock middle depth 6 cm from the nipple. This irregular mass is hypoechoic with an echogenic boundary and posterior acoustic shadowing. This correlates as palpated, with mammography findings, and area of clinical concern. There is associated architectural distortion. Color flow imaging demonstrates that there is vascularity present. No significant abnormalities were seen sonographically in the left axilla. IMPRESSION: HIGHLY SUGGESTIVE OF MALIGNANCY The 2.6 cm x 2.1 cm x 1.5 cm irregular mass in the left breast is highly suggestive of malignancy. An ultrasound guided biopsy is recommended. No sonographic abnormalities identified in the axilla. No axillary adenopathy. Findings and recommendations were discussed with the patient telephonically by Dr. Jaramillo during today's examination. This exam was interpreted at Station ID: [id number]. Electronically Signed By: Watson Jaramillo M.D. aty/:02/04/2023 14:45:05 letter sent: Biopsy Required Ultrasound BI-RADS: 5 Highly suggestive of malignancy
== END ==
PROVIDERS: PCP Family Medicine; Referring Provider Family Medicine; Visit Provider Family Medicine
DX: N63.23 Unspecified lump in the left breast, lower outer quadrant (principal); N63.10 Unspecified lump in the right breast, unspecified quadrant; R92.8 Other abnormal and inconclusive findings on diagnostic imaging of breast
CPT/HCPCS: 76642; 77066; G0279

== ENCOUNTER → 2023-02-14 12:08 | Outpatient (CLI) | payer MEDICARE, OTHER, SELFPAY ==
--- NOTE | 2023-02-14 | PATH_ITS ---
[facility] Accession Number: [id number] No. of containers..01 Tissue . 01 Material submitted: . breast - LEFT BREAST MASS 5:00 6CMFN . 01 Diagnosis: A. Left Breast Mass, 5 o'clock, 6 cm from the Nipple, Biopsy: Invasive (ductal) carcinoma, grade 2 of 3 ([place] combined histologic score 7/9), with the following features: 1. Tubular differentiation: None. (3/3) 2. Nuclear grade: Intermediate. (2/3) 3. Mitotic rate: Intermediate. (2/3) 4. Size of invasive carcinoma: Present on multiple cores, largest linear span of at least 10 mm in the sample. 5. Ductal carcinoma in situ: Present, intermediate to high grade, solid and cribriform growth pattern without evidence of necrosis. 6. Lymphovascular space invasion: Not identified. 7. Calcifications: Present, in association with invasive carcinoma. 8. Prognostic markers: - Estrogen receptor: Positive (>99%, Strong). - Progesterone receptor: Positive (95%, Strong). - HER2: Negative for protein overexpression by immunohistochemistry (0). [facility] 02/18/2023 1508 Local . 01 Electronically signed: . Edyta Wang MD, Pathologist NPI- [id number] . 01 Gross description: . The specimen is received in formalin labeled with the patient's name, , and US bx breast perc, and consists of multiple yellow to brown soft tissue fragments aggregating to 2.2 x 1.4 x 0.2 cm. The specimen is filtered into a biopsy bag and submitted entirely in cassette A1. . The specimen was removed on 02/14/2023 at 1335, time in formalin not provided, cold ischemic time cannot be calculated, total fixation time is approximately 49 hours. ([id number]) /FRR 02/15/2023 1923 Local . 01 Microscopic: . A panel of immunostains is performed on the invasive carcinoma in order to evaluate for in situ component and for lymphovascular space invasion, with appropriately staining external controls. The following are the immunohistochemical findings: . P63: Lost around invasive carcinoma, and retained around ductal carcinoma in situ. Smooth muscle myosin: Lost around invasive carcinoma, and retained around ductal carcinoma in situ. D2-40: Negative around tumor nests. . Predictive marker immunohistochemical studies are performed on block A1 with the invasive carcinoma showing the following results: . Estrogen receptor (SP1): Positive (More than 99%, Strong intensity). Progesterone receptor (1E2): Positive (More than 95%, Strong intensity). Her2 (4B5): Negative for protein overexpression by immunohistochemistry (0). . Internal controls for ER and ID are positive. Cold ischemic time is <5 minutes. The scoring criteria for breast biomarkers by immunohistochemistry is based on the ASCO/CAP guidelines (Paramjit AC et al, J Clin Oncol: 2017Apr 21;36(20):8093-9473 and Carlos ME et al, Arch Pathol Lab Med: 2009;134(6):907-22). Deparaffinized sections of formalin fixed tissue (along with appropriate positive controls) are incubated with the above antibody(s). Using the automated [place] stainer, tissue is incubated with the designated antibody which is then localized by a non-biotin, dual polymer detection system. The external controls are reviewed for appropriate reactivity and found to be adequate. Results on the target cell population are indicated above. These tests have not been validated on decalcified tissue. This test was developed and its performance characteristics determined by [employer]. It has not been cleared or approved by the U.S. Food and Drug Administration. The FDA has determined that such clearance or approval is not necessary. This test is used for clinical purposes. It should not be regarded as investigational or for research. . 01 Pathologist provided ICD-10: C50.912 . 01 CPT . 491612, X21708, F50729, 470200, 572191, 065430 Specimen Comment: A courtesy copy of this report has been sent to [phone] Performed at: 01 [facility] [address], [place], [place] [id number] MD Basilio Prather MD Phone: [phone]
--- NOTE | 2023-02-14 | DI.MG.S_ITS ---
UNILATERAL LEFT DIGITAL DIAGNOSTIC MAMMOGRAM 3D/2D: 02/14/2023 CLINICAL: Post left breast ultrasound biopsy clip placement imaging. Comparison is made to exams dated: 02/04/2023 ultrasound, 02/04/2023 mammogram, 01/06/2017 mammogram, and 10/04/2010 mammogram - [facility]. There are scattered areas of fibroglandular density in the left breast (category b / 25%-50% glandular tissue). A biopsy clip is seen in the left breast at the biopsy site. IMPRESSION: POST PROCEDURE MAMMOGRAM FOR MARKER PLACEMENT The biopsy clip is at the biopsy site. Based on the Tyrer Cuzick model (a risk assessment model) the patient's lifetime risk is 1.9% and her 10 year risk is 0.0%. According to the ACR, ACS, and NCCN guidelines, an annual breast MRI exam along with mammogram is recommended if the patient's lifetime risk is 20% or greater. This exam was interpreted at Station ID: [id number]. NOTE: For mammograms, a report in lay terms will be sent to the patient. Approximately 15% of breast malignancies will not be visualized mammographically. In the management of a palpable breast mass, a negative mammogram must not discourage biopsy of a clinically suspicious lesion. Electronically Signed By: Kandi Drake M.D. fx/:02/14/2023 13:52:41 ACR BI-RADS Category Post-procedure mammogram for marker placement
--- NOTE | 2023-02-14 12:15 | DI.US.S_ITS ---
ULTRASOUND GUIDED BIOPSY LEFT BREAST USING VACUUM DEVICE WITH POST MAMMOGRAPHIC AND ULTRASOUND IMAGIN02/14/2023 CLINICAL: Left breast mass. PATIENT CONSENT: Risks (minor bleeding, infection, vasovagal reaction and repeat procedure), benefits and alternatives were explained to the patient and written informed consent was obtained. Correlation is made to exams dated: 02/14/2023 mammogram, 02/04/2023 ultrasound, 02/04/2023 mammogram, 01/06/2017 mammogram, 10/04/2010 mammogram, and 04/24/2005 mammogram - [facility]. An ultrasound guided biopsy using real-time ultrasound was performed for the oval mass located in the left breast at 5 o'clock 6 cm from the nipple. This was described on the previous ultrasound report. The lesion measures 2.8 x 1.5 x 1.5 cm on the current ultrasound. The skin was prepped in the usual manner. Local anesthetic was administered to the access site. The abnormality was approached from the lateral aspect. A 13 gauge biopsy needle was placed adjacent to the abnormality under ultrasound guidance. Once the needle was documented to be in the correct location, six specimens were obtained using the Mammotome biopsy system. Post procedure mammographic and ultrasound imaging demonstrates the clip at the targeted area. The specimens were sent to the laboratory for pathological analysis. IMPRESSION: ULTRASOUND GUIDED BIOPSY MALIGNANT Ultrasound guided biopsy of the mass in the left breast anterior depth was successful. Pathology demonstrate invasive ductal carcinoma. Pathology results are concordant with imaging findings. A surgical/oncologic consultation is recommended. This exam was interpreted at Station ID: [id number]. Kandi Goode M.D. fx,slc/:02/20/2023 12:02:55
== END ==
PROVIDERS: PCP Family Medicine; Referring Provider Family Medicine; Visit Provider Family Medicine
DX: C50.512 Malignant neoplasm of lower-outer quadrant of left female breast (principal); Z17.0 Estrogen receptor positive status [ER+]
CPT/HCPCS: 19083; 77065

== ENCOUNTER → 2023-02-26 09:50 | Outpatient (CLI) | payer MEDICARE, OTHER, SELFPAY ==
--- NOTE | 2023-02-26 10:26 | DI.CT.S_ITS ---
PROCEDURE: CT CHEST ABD PEL W CON INDICATIONS: new diagnosis breast cancer TECHNIQUE: After the administration of oral and intravenous contrast, axial sections acquired from the supraclavicular neck to the pubic symphysis. Coronal and sagittal reformats were performed. For radiation dose reduction, the following was used: automated exposure control, adjustment of mA and/or kV according to patient size. COMPARISON: CT, CT KIDNEY URETER BLADDER (KUB), 06/10/2019, 11:51. FINDINGS: Image quality: Excellent. CHEST: Lower Neck: No enlarged lymph nodes. Thyroid: Diminutive and somewhat heterogeneous. Axillae: No enlarged lymph nodes. Chest Wall: Spiculated density in the left breast with radiodense biopsy clip centrally. No other chest wall masses. Lungs and Airways: No suspicious mass or consolidation. There is underlying morphology of a UIP pattern including a peripheral subpleural reticulation, mild peripheral traction bronchiectasis, scattered peripheral ground-glass opacities, and possible honeycombing at the posterior costophrenic sulci. No dense consolidations. Pleura: No pneumothorax or pleural effusions. Heart: The heart is mildly enlarged. There are moderate coronary artery calcifications. Aortic valvular calcification. No pericardial effusion. Thoracic Vessels: Thoracic aorta is normal caliber. Main pulmonary artery is dilated at 3.4 cm. Bilateral pulmonary arteries are also slightly prominent. Mediastinum and [place]: Mild right hilar adenopathy. No enlarged mediastinal lymph nodes. There is a small distal aorta esophageal posterior mediastinal node measuring 7 mm short axis. Esophagus: No wall thickening. No hiatal hernia. ABDOMEN: Liver: Mild hepatic steatosis. There are coarse calcifications in segment seven. No visible masses. Gallbladder: Several calcified gallstones in a decompressed gallbladder. No wall thickening. Biliary ducts: Nondilated. Pancreas: Normal. Spleen: Normal. Adrenal Glands: No nodules. Kidneys and Ureters: Parapelvic renal cysts bilaterally, left more so than right. Probable cyst in the upper pole of the right kidney. No obstructing intrarenal calcifications. Normal caliber ureters without calcification. Stomach and Bowel: Stomach, small bowel loops, and colon are unremarkable. Appendix not seen. Peritoneum: No abnormal intraperitoneal fluid. No free air. Ventral Wall: Tiny fat containing umbilical hernia. Abdominal Nodes: No retroperitoneal or mesenteric adenopathy by size criteria. Vessels: Aorta and inferior vena cava are normal in size. PELVIS: Pelvic Organs: Uterus is absent. Ovaries are not seen. Bladder: Unremarkable. Pelvic Nodes: No enlarged lymph nodes. Miscellaneous: No inguinal hernias are seen. Bones: No visible bone lesions. Grade 1 anterolisthesis L4 on five. Degenerative changes in both sacroiliac joints. Degenerative change at the sternomanubrial joint. IMPRESSION: 1. Left breast mass suggesting known malignancy. No axillary adenopathy seen. 2. Mild right hilar lymphadenopathy is nonspecific, particularly in the setting of underlying lung disease. 3. There is a background of mild usual interstitial pneumonia pattern suggesting idiopathic pulmonary fibrosis. Correlate with history. 4. Mild hepatic steatosis. 5. Cholelithiasis. 6. No evidence of metastatic disease in the pelvis. Dictated by: Maame Hanks M.D. on 02/26/2023 at 17:18 Approved by: Maame Hanks M.D. on 02/26/2023 at 17:29
[2023-02-26 10:46] LABS: BUN Creatinine Ratio 19.2 (6-22); Blood Urea Nitrogen 15 mg/dL (7-17); Calcium 9.4 mg/dL (8.4-10.2); Carbon Dioxide 25 mmol/L (22-32); Chloride 103 mmol/L (98-107); Estimated Glomerular Filt Rate > 60 mL/min (>60); Glucose 209 mg/dL (80-110); HEMOLYSIS 18 (0-50); Potassium 4.9 mmol/L (3.4-5.1); Sodium 137 mmol/L (137-145)
== END ==
PROVIDERS: PCP Family Medicine; Referring Provider Family Medicine; Visit Provider Family Medicine
DX: Z01.812 Encounter for preprocedural laboratory examination (principal); N63.20 Unspecified lump in the left breast, unspecified quadrant; C50.912 Malignant neoplasm of unspecified site of left female breast; R59.0 Localized enlarged lymph nodes; K76.0 Fatty (change of) liver, not elsewhere classified; K80.20 Calculus of gallbladder without cholecystitis without obstruction
CPT/HCPCS: 36415; 71260; 74177; 80048; Q9967

== ENCOUNTER → 2023-03-12 12:10 | Outpatient (CLI) | payer MEDICARE, OTHER, SELFPAY ==
--- NOTE | 2023-03-12 | DI.NM.S_ITS ---
PROCEDURE: NM SENTINEL NODE INJECT ONLY RADIOPHARMACEUTICAL: 0.5-1.0 mCi Millipore filtered Tc-99m sulfur colloid. INDICATIONS: Malignant neoplasm of left female breast COMPARISON: None. PROCEDURE: The area around the nipple was prepped and draped in a sterile fashion. Tc-99m sulfur colloid was injected intra-dermally around the outer edge of the areola in the left breast. No image was obtained. IMPRESSION: Administration of radiotracer into the left breast periareolar region for intra-operative sentinel lymph node localization. Dictated by: Kandi Drake M.D. on 03/12/2023 at 13:22 Approved by: Kandi Drake M.D. on 03/12/2023 at 13:24
== END ==
PROVIDERS: PCP Family Medicine; Referring Provider Surgery; Visit Provider Surgery
DX: C50.912 Malignant neoplasm of unspecified site of left female breast (principal)
CPT/HCPCS: 38792; A9541

== ENCOUNTER 2023-03-12 13:00 | Day surgery (SDC) | payer MEDICARE, OTHER, SELFPAY ==
[2023-03-05 14:41] VITALS: BMI 41.3
[2023-03-12] VITALS (9 sets, daily range): BP systolic 119–154; BP diastolic 55–76; PULSE 59–72; RESP 12–17; TEMP 36.1–36.4; O2SAT 95–97; BMI 41.3
--- NOTE | 2023-03-12 | PATH_ITS ---
[facility] Accession Number: [id number] No. of containers..02 Tissue . 01 Material submitted: . PART A: breast - LEFT BREAST LUMP; LONG STICH=LATERA,SHOR STITCH =SUPERIOR PART B: lymph node - SENTINEL LYMPH NODES . 01 Diagnosis: A. Left Breast, Lumpectomy: Invasive (ductal) carcinoma, grade 3 of 3 ([place] combined histologic grade, total score 8/9) with the following features: 1. Tumor size (invasive component): 2.5 cm, by gross measurement. 2. Nuclear pleomorphism: High. (3/3) 3. Mitotic rate: Intermediate. (2/3) 4. Tubular differentiation: None. (3/3) 5. Ductal carcinoma in situ: Present, with the following features: - Nuclear grade: High. - Necrosis: Present central (expansive comedo necrosis). - Extent: Present on more than one slide, corresponding to tissue slices 2, 4, 6, 7, and 8, spanning approximately 15 mm. 6. Calcifications: Present, in association with ductal carcinoma in situ, invasive carcinoma, and benign breast tissue. 7. Lymphatic invasion: Not identified. 8. Resection margins: - Invasive carcinoma: Negative, 2 mm or more from all margins. - DCIS: Negative, 1.9 mm from posterior margin (block A9), and 2 mm or more from the remaining margins. 9. Prognostic markers: Performed on prior biopsy ([id number], 02/15/2023) and reported as follows: - Estrogen receptor status: Positive. - Progesterone receptor status: Positive - HER2 (repeated on the excision specimen): Negative for protein overexpression by immunohistochemistry (0). 10. Regional lymph node status (see part B below): - One lymph node, negative for malignancy (0/1). 11. Additional findings: - Skin: invasive carcinoma involves lower to mid-dermis of skin; no pagetoid spread or ulcerations are seen. - Skeletal muscle and nipple are not present for evaluation. - Biopsy site changes are present. - Background fibrocystic change including fibroadenomatoid change, usual ductal hyperplasia, apocrine metaplasia, and microcystic duct dilatation. 12. Pathologic stage: pT2 pN0(sn). . B. [place] Lymph Nodes, Dissection: One lymph node, negative for malignancy (0/1). [facility] 03/20/2023 0401 Local . 01 Electronically signed: . Edyta Wang MD, Pathologist NPI- [id number] . 01 Gross description: . A. Received: In formalin labeled with the patient's name, , and left breast lump. Specimen: A left, oriented lumpectomy. Weight: 44 g. Measurement: 4.8 cm from anterior to posterior, 5.7 cm from medial to lateral, 3.6 cm from superior to inferior. Skin ellipse: Present, measuring 4.2 x 1.9 cm. Wire: Absent. Margins: Oriented with a short suture designating superior and a long suture designating lateral per the requisition and attached to the ellipse of skin. The cutaneous surface is puckered, and a linear defect extending into the subcutaneous surface is identified running from medial to lateral and extending to 0.8 cm deep. Inked as follows: Anterior yellow, posterior black, medial blue, lateral green, superior orange, inferior red. Sliced: From medial to lateral into ten 3-mm slices. Lesion: Description: Ill-defined, white, firm lesion. Size: 2.5 x 2.3 x 1.9 cm. Slices involved: Slices 2-8. Biopsy: Present, a cylindrical clip is identified within slice 6. Distance to Margins: The lesion grossly approaches the skin surface, 0.5 cm from the orange margin, 0.3 cm from the red margin, 0.8 cm from the black margin, and greater than 1.0 cm from all remaining margins. The remaining cut surface is yellow to white, fibroadipose tissue with fibrous tissue occupying approximately 20% of the cut surface. No additional lesions are identified. Fixation time: The specimen was removed on 03/12/2023, time not provided, cold ischemic time cannot be calculated, total fixation time is approximately 66 hours. Staff Nurse Anesthetist sections are submitted as follows: A1: Staff Nurse Anesthetist slice 1 perpendicular, no lesion. A2: Staff Nurse Anesthetist slice 2 to include orange, black, and blue margins. A3: Staff Nurse Anesthetist slice 4 to include skin and lesion to nearest patient access representative margin. A4-A7: Entire composite slice 6 to include biopsy site. A8: Staff Nurse Anesthetist slice 7 lesion to nearest orange margin. A9: Staff Nurse Anesthetist slice 7 lesion to nearest black margin. A10: Staff Nurse Anesthetist slice 8. A11: Staff Nurse Anesthetist slice 9, no lesion. A12: Staff Nurse Anesthetist slice 10 perpendicular. B. Received in formalin, labeled with the patient's name, , and sentinel lymph nodes, and consists of two fragments of yellow, lobulated adipose tissue aggregating to 5.8 x 4.0 x 2.0 cm. Palpation reveals a single chaudhry lymph node candidate measuring 1.3 cm in greatest dimension. Staff Nurse Anesthetist sections are submitted as follows: B1: Single bisected lymph node candidate. B2: Staff Nurse Anesthetist tissue from the fragment of adipose with no identified lymph nodes. ([id number]) /R 03/14/2023 2248 Local . 01 Microscopic: . Perineural invasion is present. . D2-40 immunostain is performed on blocks A4, A5, and A8 in order to evaluate certain areas of interest for lymphovascular space invasion. There is no staining of D2-40 around tumor nests, in support of no evidence of lymphovascular space invasion. . Prognostic marker HER2 is repeated on block A3, given the increase in the histologic grade, and demonstrates the following features: . Her2 (4B5): Negative for protein overexpression by immunohistochemistry (0). . Cold ischemic time is <5 minutes. The scoring criteria for breast biomarkers by immunohistochemistry is based on the ASCO/CAP guidelines (Paramjit AC et al, J Clin Oncol: 2018 Apr 21;36(20):8177-1129 and Gonzalez ME et al, Arch Pathol Lab Med: 2009;134(6):907-22). Deparaffinized sections of formalin fixed tissue (along with appropriate positive controls) are incubated with the above antibody(s). Using the automated [employer]ure stainer, tissue is incubated with the designated antibody which is then localized by a non-biotin, dual polymer detection system. The external controls are reviewed for appropriate reactivity and found to be adequate. Results on the target cell population are indicated above. These tests have not been validated on decalcified tissue. This test was developed and its performance characteristics determined by [employer]. It has not been cleared or approved by the U.S. Food and Drug Administration. The FDA has determined that such clearance or approval is not necessary. This test is used for clinical purposes. It should not be regarded as investigational or for research. . 01 Pathologist provided ICD-10: C50.912 . 01 CPT . 842014, 351335, X14303, 076261 Specimen Comment: A courtesy copy of this report has been sent to [phone] Performed at: 01 [facility] [address] [facility], [place], [place] [id number] MD Basilio Prather MD Phone: [phone]
--- NOTE | 2023-03-12 15:11 | PM.PREOP ---
Pre-operative Note Interval Note History & Physical reviewed/Exam performed by Physician: Yes Changes to H&P: No
[2023-03-12] MEDS: CEFAZOLIN 2 GM/100 ML PREMIX 100 ML IV (15:45)
--- NOTE | 2023-03-12 15:58 | SUR.OPER ---
Supine on padded OR bed, head on pillow, arms secured on padded arm boards at <90 degrees abduction, legs uncrossed, safety belt at thigh, tape over blanket over lower legs. Left arm in control of surgeon.
[2023-03-12] MEDS: BUPIVACAINE 0.25% (PF) VIAL 20 ML INJ (16:02)
[2023-03-12] MEDS: LACTATED RINGERS 1,000 ML 100 ML IV (16:04)
--- NOTE | 2023-03-12 16:56 | P.OP_ITS ---
Operative Date/Time/Diagnoses Date of procedure: 03/12/23 Time of procedure: 16:57 Pre-op diagnosis: Left breast cancer Post-op diagnosis: same Procedure & Clinicians Procedure: Left lumpectomy with sentinel lymph node biopsy Same procedure as scheduled: Yes Indications: 77-year-old woman with a 3 cm invasive ductal carcinoma of the left breast clinically node-negative here for lumpectomy and sentinel lymph node biopsy Surgeon: Rodney Collazo [employer] Manager: Sukh Whitaker Operative Notes Findings: Tumor is nearly eroding through skin. The vast majority of the radioactive tracer uptake is within the breast did not appear to travel adequately to the axilla. Specimen(s): other ([place] lymph nodes, left lumpectomy) Estimated Blood Loss (mL): 20 Procedure in detail: They were brought to the operating room and placed supine on the table. Bilateral lower extremity compression devices were applied. They were intubated with an LMA. 1 ml of methlyene blue mixed w 4 ml saline was injected into the subcutaneous tissue adjacent to the mass. And massaged into the tissue for 5 minutes. They were prepped and draped in sterile fashion. Time-out was performed. A elliptical incision on the inferior aspect of the left breast was made and subcutaneous tissues were divided around the palpable mass. The skin was ex cised with the tumor as the tumor was nearly eroding through the skin.. The mass was approximately 3 cm in size and was excised with a generous margin. Specimen was marked short stitch superior long stitch lateral. An incision was made in the left axilla 2 cm below the hair bearing region. Dissection was carried down through the subcutaneous tissue towards the chest wall guided by the Neoprobe. Two sentinel node was found, the 10 sec count was 195 and 65. The nodes were removed the tissue was ligated with hemoclips. The background count following removal of the node was minimal there were no other blue appearing nodes or lymphadenopathy. Hemostasis was achieved. The subcutaneous tissue was closed with vicryl the skin with 4-o monocryl followed by dermabond. Subcutaneous tissues were reapproximated with 3 0 Vicryl sutures skin closed with Monocryl followed by application of Dermabond. The counts were correct. They emerged from anesthesia and were transfered to recovery in stable condition. Complications: none Post-operative Condition: stable Disposition: same day surgery
[2023-03-12] MEDS: HYDROCODONE/ACET 5/325 TABLET 1 TAB PO (17:51)
== END 2023-03-12 18:00 | disposition home or self-care (01) ==
PROVIDERS: PCP Family Medicine; Referring Provider Surgery; Visit Provider Surgery
PROC: (CPT 19301; principal; 2023-03-12 13:45)
DX: C50.912 Malignant neoplasm of unspecified site of left female breast (principal); E11.9 Type 2 diabetes mellitus without complications; I10 Essential (primary) hypertension; Z79.01 Long term (current) use of anticoagulants; E66.9 Obesity, unspecified; Z68.41 Body mass index [BMI] 40.0-44.9, adult; I48.91 Unspecified atrial fibrillation; Z17.0 Estrogen receptor positive status [ER+]
CPT/HCPCS: 38525; 19301; 38792; 82962; 85610; A9541; J0690; J1100; J2405; J2704; J3010; J3490

== ENCOUNTER → 2023-04-09 12:50 | Outpatient (CLI) | payer MEDICARE, OTHER, SELFPAY ==
--- NOTE | 2023-04-09 12:52 | DI.RAD.S_ITS ---
Bone Density Report Name: REBECA SANTOS Age: 77 Sex: Female Ethnicity: White Date of : 1945 Indication: postmenopausal; screening for osteoporosis; Referring Provider: KAMERON LANDA Study: Bone densitometry was performed. Exam Date: April 09, 2023 Accession number: [id number] Bone Density: Region BMD T-score Z-score Classification AP Spine(L1-L4) 0.904 -1.3 1.3 Osteopenia Femoral Neck (Left) 0.638 -1.9 0.3 Osteopenia Total Hip (Left) 0.893 -0.4 1.5 Normal Femoral Neck (Right) 0.710 -1.3 0.9 Osteopenia Total Hip (Right) 0.847 -0.8 1.2 Normal Total Hip Mean 0.870 -0.6 1.4 Normal World Health Organization criteria for BMD impression classify patients as: Normal (T-score at or above -1.0), Osteopenia (T-score between -1.0 and -2.5), or Osteoporosis (T-score at or below -2.5). 10-year Fracture Risk(1): Major Osteoporotic Fracture 12% Hip Fracture 2.8% Reported Risk Factors: [place] (), Neck BMD=0.638, BMI=41.6 (1) FRAX(R) Version 3.08. Fracture probability calculated for an untreated patient. Fracture probability may be lower if the patient has received treatment. Previous Exams: -- Region Exam Age BMD T-score BMD Change BMD Change Date g/cm2 vs Baseline vs Previous -- AP Spine (L1-L4) 04/09/2023 77 0.904 -1.3 -0.102 (-10.2%)# -0.102 (-10.2%)# 01/06/2017 71 1.006 -0.4 Total Hip(Left) 04/09/2023 77 0.893 -0.4 -0.006 (-0.7%)# -0.006 (-0.7%)# 01/06/2017 71 0.899 -0.4 Total Hip(Right) 04/09/2023 77 0.847 -0.8 -0.036 (-4.1%)# -0.036 (-4.1%)# 01/06/2017 71 0.883 -0.5 -- *Denotes significance at 95% confidence level, LSC for AP Spine = 0.022 g/cm2, LSC for Total Hip = 0.027 g/cm2 # Denotes dissimilar scan types or analysis methods Impression: The patient has low bone mass, based on the Left Femoral Neck T-score. The patient has an estimated ten-year risk of hip fracture of 2.8% and an estimated ten-year risk of major fracture of 12%, based on the WHO FRAX algorithm. No significant bone loss was observed. Discussion: BONE DENSITY IS LOW AT ONE OR MORE SKELETAL SITES. This patient's lowest T-score is low at one or more skeletal sites. It meets the World Health Organization's (WHO) criteria for low bone mass (T-score between -1.0 and -2.5). The patient's 10-year risk of fracture as calculated by FRAX is less than the threshold where pharmacological therapy is recommended by the National Osteoporosis Foundation (NOF). However, all treatment decisions require clinical judgment and consideration of individual patient factors, including patient preferences, comorbidities, previous drug use, risk factors not captured in the FRAX model (e.g., frailty, falls, vitamin D deficiency, increased bone turnover, interval significant decline in bone density) and possible under or overestimation of fracture risk by FRAX. The patient should follow a healthful lifestyle (good nutrition with adequate calcium and vitamin D, and appropriate weight-bearing exercise). Follow-Up: Consider repeating this study in 2 to 3 years to reassess this patient's status, or sooner if there is some new clinical indication. Reported by: JOSE D HSU M.D. on 04/09/2023 1:13:00 PM.
== END ==
PROVIDERS: PCP Family Medicine; Referring Provider Internal Medicine Hematology & Oncology; Visit Provider Internal Medicine Hematology & Oncology
DX: Z78.0 Asymptomatic menopausal state (principal); Z13.820 Encounter for screening for osteoporosis; M85.852 Other specified disorders of bone density and structure, left thigh
CPT/HCPCS: 77080

== ENCOUNTER → 2023-09-09 10:51 | Outpatient (CLI) | payer MEDICARE, OTHER, SELFPAY ==
[2023-09-09 13:05] LABS: Add Manual Diff / Slide Review NO; Basophils Absolute Auto 0 /uL (0-100); Basophils Percent Auto 0.3 % (0-2); Eosinophils Absolute Auto 100 /uL (0-450); Eosinophils Percent Auto 1.1 % (2-4); Hemoglobin 13.5 g/dL (12.0-16.0); Lymphocytes Absolute Auto 1400 /uL (1100-4500); Lymphocytes Percent Auto 10.8 % (25-40); Mean Corpuscular HGB Conc 33.7 % (30-36); Mean Corpuscular Hemoglobin 31.6 PG (26-34); Mean Corpuscular Volume 93.9 fL (80-100); Monocytes Absolute Auto 700 /uL (0-900); Monocytes Percent Auto 5.3 % (3-14); Neutrophils Absolute Auto 10500 /uL (1500-7000); Neutrophils Percent Auto 82.5 % (50-75); Platelet Count 247 X10^3/uL (150-400); Red Blood Cell Count 4.26 X10^6/uL (4.0-5.2); Red Cell Distribution Width 13.6 % (11.6-14.8); White Blood Cell Count 12.7 X10^3/uL (4.5-11.0)
[2023-09-09 13:14] LABS: Alanine Aminotransferase 25 IU/L (<35); Albumin 3.9 g/dL (3.5-5.0); Albumin Globulin Ratio 1.2 (1.0-2.8); Alkaline Phosphatase 112 U/L (38-126); Aspartate Aminotransferase 40 IU/L (14-36); Bilirubin Total 0.8 mg/dL (0.2-1.3); Blood Urea Nitrogen 18 mg/dL (7-17); Calcium 9.5 mg/dL (8.4-10.2); Carbon Dioxide 26 mmol/L (22-32); Chloride 104 mmol/L (98-107); Cholesterol 188 mg/dL (140-199); Estimated Glomerular Filt Rate > 60 mL/min (>60); Globulin 3.3 g/dL (1.7-4.1); Glucose 152 mg/dL (80-110); HDL Cholesterol 38 mg/dL (40-60); HEMOLYSIS < 15 (0-50); LDL Cholesterol Calculated 118 mg/dL (<100); Potassium 4.5 mmol/L (3.4-5.1); Sodium 137 mmol/L (137-145); Total Protein 7.2 g/dL (6.3-8.2); Triglycerides 159 mg/dL (35-150)
[2023-09-09 13:35] LABS: Hemoglobin A1C% w Est Avg Glu 6.8 % (4.0-6.0)
[2023-09-09 15:22] LABS: Creatinine Urine Random 113.8 mg/dL
[2023-09-09 15:26] LABS: Microalbumi Creatinin Ratio Ur 18.4 ug/mg CR (<30); Microalbumin Urine Random 2.1 mg/dL (0-1.6)
== END ==
PROVIDERS: PCP Family Medicine; Referring Provider Family Medicine; Visit Provider Family Medicine
DX: E11.49 Type 2 diabetes mellitus with other diabetic neurological complication (principal)
CPT/HCPCS: 36415; 80053; 80061; 82043; 82570; 83036; 85025

== ENCOUNTER → 2023-09-11 11:20 | Outpatient (CLI) | payer MEDICARE, OTHER, SELFPAY ==
--- NOTE | 2023-09-11 11:22 | DI.RAD.S_ITS ---
PROCEDURE: XR KNEE RT 3V INDICATIONS: rt knee pain TECHNIQUE: 3 views of the knee were acquired. COMPARISON: [facility], , XR KNEE RT 3V, 01/17/2022, 15:27. FINDINGS: Bones: No fractures or dislocations. No suspicious bony lesions. 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 Soft tissues: Small joint effusion. No suspicious soft tissue calcifications. IMPRESSION: No acute bony abnormality or significant effusion. If symptoms persist with conservative management, consider cross-sectional imaging such as CT or MRI. Approved by: Julia Mccall M.D. on 09/11/2023 at 13:42
== END ==
PROVIDERS: PCP Family Medicine; Referring Provider Family Medicine; Visit Provider Family Medicine
DX: M17.11 Unilateral primary osteoarthritis, right knee (principal)
CPT/HCPCS: 73562

== ENCOUNTER → 2023-11-27 10:49 | Outpatient (CLI) | payer MEDICARE, OTHER, SELFPAY ==
[2023-11-27 11:51] LABS: Hemoglobin A1C% w Est Avg Glu 6.4 % (4.0-6.0)
[2023-11-27 12:24] LABS: Alanine Aminotransferase 19 IU/L (<35); Albumin 3.9 g/dL (3.5-5.0); Albumin Globulin Ratio 1.1 (1.0-2.8); Alkaline Phosphatase 119 U/L (38-126); Aspartate Aminotransferase 30 IU/L (14-36); BUN Creatinine Ratio 23.1 (6-22); Bilirubin Total 0.6 mg/dL (0.2-1.3); Blood Urea Nitrogen 18 mg/dL (7-17); Calcium 9.5 mg/dL (8.4-10.2); Carbon Dioxide 25 mmol/L (22-32); Chloride 105 mmol/L (98-107); Cholesterol 162 mg/dL (140-199); Estimated Glomerular Filt Rate > 60 mL/min (>60); Globulin 3.6 g/dL (1.7-4.1); Glucose 107 mg/dL (80-110); HDL Cholesterol 36 mg/dL (40-60); HEMOLYSIS < 15 (0-50); LDL Cholesterol Calculated 95 mg/dL (<100); Potassium 4.5 mmol/L (3.4-5.1); Sodium 141 mmol/L (137-145); Total Protein 7.5 g/dL (6.3-8.2); Triglycerides 156 mg/dL (35-150)
[2023-11-27 12:57] LABS: Thyroid Stimulating Hormone 7.63 uIU/mL (0.47-4.68)
[2023-11-27 18:53] LABS: Hep C Virus Ab w/Reflex Quant NEGATIVE s/c (NEGATIVE)
[2023-11-27 19:15] LABS: Microalbumin Urine Random 2.8 mg/dL (0-1.6)
[2023-11-27 19:23] LABS: Microalbumi Creatinin Ratio Ur 25.9 ug/mg CR (<30)
== END ==
PROVIDERS: PCP Nurse Practitioner; Referring Provider Nurse Practitioner; Visit Provider Nurse Practitioner
DX: E11.49 Type 2 diabetes mellitus with other diabetic neurological complication (principal); I10 Essential (primary) hypertension; E03.9 Hypothyroidism, unspecified; I48.91 Unspecified atrial fibrillation; Z79.899 Other long term (current) drug therapy
CPT/HCPCS: 36415; 80053; 80061; 82043; 82570; 83036; 84443; 86803

== ENCOUNTER → 2023-11-27 12:57 | Outpatient (CLI) | payer MEDICARE, OTHER, SELFPAY | PROVIDERS: PCP Nurse Practitioner; Referring Provider Nurse Practitioner Family; Visit Provider Surgery | DX: I48.91 Unspecified atrial fibrillation (principal); I10 Essential (primary) hypertension; E03.9 Hypothyroidism, unspecified; E11.49 Type 2 diabetes mellitus with other diabetic neurological complication; Z79.899 Other long term (current) drug therapy; E11.621 Type 2 diabetes mellitus with foot ulcer; L97.519 Non-pressure chronic ulcer of other part of right foot with unspecified severity; M19.071 Primary osteoarthritis, right ankle and foot; M79.89 Other specified soft tissue disorders; M20.41 Other hammer toe(s) (acquired), right foot; L97.512 Non-pressure chronic ulcer of other part of right foot with fat layer exposed; E11.42 Type 2 diabetes mellitus with diabetic polyneuropathy; L84 Corns and callosities; R60.0 Localized edema; L53.9 Erythematous condition, unspecified; Z79.01 Long term (current) use of anticoagulants | CPT/HCPCS: 11042; 36415; 73630; 80053; 80061; 82043; 82570; 83036; 84443; 86803; 87070; 87075; 87205; 99203; 99213 ==

== ENCOUNTER → 2023-11-27 15:17 | Outpatient (CLI) | payer MEDICARE, OTHER, SELFPAY ==
--- NOTE | 2023-11-27 15:19 | DI.RAD.S_ITS ---
PROCEDURE: XR FOOT RT MIN 3V INDICATIONS: eval for osteo TECHNIQUE: 3 views of the foot were acquired. COMPARISON: None. FINDINGS: Bones: No fractures or dislocations. No suspicious bony lesions. Mild hallux valgus metatarsus prima varus alignment and medial bunion. Moderate 1st MTP and mild diffuse interphalangeal joint space narrowing with periarticular osteophyte formation. Calcaneal enthesopathy. 5th digit hammertoe deformity. Soft tissues: No tibiotalar joint effusion. Achilles tendon appears normal. 1st digit soft tissue swelling. IMPRESSION: 1. Although no definitive bony erosions are identified, plain film radiography is relatively insensitive in the acute phases of osteomyelitis and may not demonstrate radiographic changes for 15 days. If acute osteomyelitis is of clinical concern, nuclear medicine regional bone scan or MRI is recommended. 2 moderate 1st MTP and mild diffuse interphalangeal joint degeneration. 3. 1st digit soft tissue swelling with possible ulceration medially. 4. 5th digit hammertoe deformity. Dictated by: John Chow [facility] Interpreted: Kayce Hanna MD on 11/27/2023 at 15:50 Transcribed by: JEIMY on 11/27/2023 at 15:52 Approved by: Kayce Hanna M.D. on 11/27/2023 at 19:57
== END ==
PROVIDERS: PCP Nurse Practitioner; Referring Provider Surgery; Visit Provider Surgery
DX: E11.621 Type 2 diabetes mellitus with foot ulcer (principal); L97.519 Non-pressure chronic ulcer of other part of right foot with unspecified severity; M19.071 Primary osteoarthritis, right ankle and foot; M79.89 Other specified soft tissue disorders; M20.41 Other hammer toe(s) (acquired), right foot
CPT/HCPCS: 73630

== ENCOUNTER → 2023-12-09 15:47 | Outpatient (CLI) | payer MEDICARE, OTHER, SELFPAY | LOC: WC 15:48 | PROVIDERS: PCP Nurse Practitioner; Referring Provider Nurse Practitioner Family; Visit Provider Surgery | DX: L97.512 Non-pressure chronic ulcer of other part of right foot with fat layer exposed (principal); E11.621 Type 2 diabetes mellitus with foot ulcer; E11.42 Type 2 diabetes mellitus with diabetic polyneuropathy; L84 Corns and callosities; L53.9 Erythematous condition, unspecified; R60.0 Localized edema; R23.4 Changes in skin texture; I10 Essential (primary) hypertension; I48.91 Unspecified atrial fibrillation | CPT/HCPCS: 11042; 99212 ==

== ENCOUNTER → 2023-12-16 15:46 | Outpatient (CLI) | payer MEDICARE, OTHER, SELFPAY | LOC: WC 15:46 | PROVIDERS: PCP Nurse Practitioner; Referring Provider Nurse Practitioner Family; Visit Provider Physician Assistant | DX: L97.512 Non-pressure chronic ulcer of other part of right foot with fat layer exposed (principal); E11.621 Type 2 diabetes mellitus with foot ulcer; E11.42 Type 2 diabetes mellitus with diabetic polyneuropathy; L84 Corns and callosities; R23.4 Changes in skin texture; I48.91 Unspecified atrial fibrillation | CPT/HCPCS: 11042; 99213 ==

== ENCOUNTER → 2023-12-23 14:41 | Outpatient (CLI) | payer MEDICARE, OTHER, SELFPAY | LOC: WC 14:42 | PROVIDERS: PCP Nurse Practitioner; Referring Provider Nurse Practitioner Family; Visit Provider Surgery | DX: L97.512 Non-pressure chronic ulcer of other part of right foot with fat layer exposed (principal); E11.621 Type 2 diabetes mellitus with foot ulcer; E11.42 Type 2 diabetes mellitus with diabetic polyneuropathy; L84 Corns and callosities; R23.4 Changes in skin texture; I10 Essential (primary) hypertension; I48.91 Unspecified atrial fibrillation | CPT/HCPCS: 11042 ==

== ENCOUNTER → 2023-12-30 14:36 | Outpatient (CLI) | payer MEDICARE, OTHER, SELFPAY | PROVIDERS: PCP Nurse Practitioner; Referring Provider Nurse Practitioner Family; Visit Provider Surgery | DX: E11.621 Type 2 diabetes mellitus with foot ulcer (principal); L97.512 Non-pressure chronic ulcer of other part of right foot with fat layer exposed; E11.42 Type 2 diabetes mellitus with diabetic polyneuropathy; L84 Corns and callosities; R23.4 Changes in skin texture; I48.91 Unspecified atrial fibrillation | CPT/HCPCS: 11042; 99213 ==

== ENCOUNTER → 2024-01-06 13:33 | Outpatient (CLI) | payer MEDICARE, OTHER, SELFPAY | LOC: WC 13:34 | PROVIDERS: PCP Nurse Practitioner; Referring Provider Nurse Practitioner Family; Visit Provider Surgery | DX: E11.621 Type 2 diabetes mellitus with foot ulcer (principal); L97.512 Non-pressure chronic ulcer of other part of right foot with fat layer exposed; L84 Corns and callosities; R23.4 Changes in skin texture; I10 Essential (primary) hypertension; I48.91 Unspecified atrial fibrillation; Z79.01 Long term (current) use of anticoagulants | CPT/HCPCS: 11042 ==

== ENCOUNTER → 2024-01-13 13:53 | Outpatient (CLI) | payer MEDICARE, OTHER, SELFPAY | LOC: WC 13:54 | PROVIDERS: PCP Nurse Practitioner; Referring Provider Nurse Practitioner Family; Visit Provider Surgery | DX: E11.621 Type 2 diabetes mellitus with foot ulcer (principal); L97.511 Non-pressure chronic ulcer of other part of right foot limited to breakdown of skin; I10 Essential (primary) hypertension; I48.91 Unspecified atrial fibrillation | CPT/HCPCS: 99213 ==

== ENCOUNTER → 2024-01-20 14:59 | Outpatient (CLI) | payer MEDICARE, OTHER, SELFPAY | LOC: WC 15:00 | PROVIDERS: PCP Nurse Practitioner; Referring Provider Nurse Practitioner Family; Visit Provider Surgery | DX: Z09 Encounter for follow-up examination after completed treatment for conditions other than malignant neoplasm (principal); Z86.31 Personal history of diabetic foot ulcer | CPT/HCPCS: 99212; 99213 ==

== ENCOUNTER → 2024-02-23 14:32 | Outpatient (CLI) | payer MEDICARE, OTHER, SELFPAY ==
[2024-02-23 15:11] LABS: Add Manual Diff / Slide Review NO; Basophils Absolute Auto 100 /uL (0-100); Basophils Percent Auto 0.6 % (0-2); Eosinophils Absolute Auto 200 /uL (0-450); Eosinophils Percent Auto 2.5 % (2-4); Hematocrit 39.2 % (36-46); Hemoglobin 13.4 g/dL (12.0-16.0); Lymphocytes Absolute Auto 2100 /uL (1100-4500); Lymphocytes Percent Auto 21.6 % (25-40); Mean Corpuscular HGB Conc 34.3 % (30-36); Mean Corpuscular Hemoglobin 31.6 PG (26-34); Mean Corpuscular Volume 92.2 fL (80-100); Monocytes Absolute Auto 700 /uL (0-900); Monocytes Percent Auto 7.5 % (3-14); Neutrophils Absolute Auto 6500 /uL (1500-7000); Neutrophils Percent Auto 67.8 % (50-75); Platelet Count 302 X10^3/uL (150-400); Red Blood Cell Count 4.25 X10^6/uL (4.0-5.2); Red Cell Distribution Width 14.5 % (11.6-14.8); White Blood Cell Count 9.6 X10^3/uL (4.5-11.0)
[2024-02-23 15:38] LABS: Alanine Aminotransferase 19 IU/L (<35); Albumin 4.1 g/dL (3.5-5.0); Albumin Globulin Ratio 1.3 (1.0-2.8); Alkaline Phosphatase 132 U/L (38-126); Aspartate Aminotransferase 35 IU/L (14-36); BUN Creatinine Ratio 32.9 (6-22); Bilirubin Total 0.6 mg/dL (0.2-1.3); Blood Urea Nitrogen 24 mg/dL (7-17); Calcium 9.8 mg/dL (8.4-10.2); Carbon Dioxide 26 mmol/L (22-32); Chloride 106 mmol/L (98-107); Estimated Glomerular Filt Rate > 60 mL/min (>60); Globulin 3.2 g/dL (1.7-4.1); Glucose 90 mg/dL (80-110); HEMOLYSIS < 15 (0-50); Potassium 4.9 mmol/L (3.4-5.1); Sodium 141 mmol/L (137-145); Total Protein 7.3 g/dL (6.3-8.2)
[2024-02-23 15:44] LABS: Hemoglobin A1C% w Est Avg Glu 6.6 % (4.0-6.0)
[2024-02-23 16:09] LABS: Thyroid Stimulating Hormone 1.78 uIU/mL (0.47-4.68)
== END ==
PROVIDERS: Nurse Practitioner; PCP Nurse Practitioner; Referring Provider Nurse Practitioner; Visit Provider Nurse Practitioner
DX: E11.9 Type 2 diabetes mellitus without complications (principal); I10 Essential (primary) hypertension; E03.9 Hypothyroidism, unspecified; I48.91 Unspecified atrial fibrillation
CPT/HCPCS: 36415; 80053; 83036; 84443; 85025

== ENCOUNTER → 2024-06-07 14:06 | Outpatient (CLI) | payer MEDICARE, OTHER, SELFPAY | PROVIDERS: Referring Provider Nurse Practitioner Family; Visit Provider Surgery | DX: E11.621 Type 2 diabetes mellitus with foot ulcer (principal); L97.512 Non-pressure chronic ulcer of other part of right foot with fat layer exposed; L84 Corns and callosities; R23.4 Changes in skin texture; I73.9 Peripheral vascular disease, unspecified | CPT/HCPCS: 11042; 87070; 87075; 87077; 87147; 87186; 87205; 99213; 99214 ==

== ENCOUNTER → 2024-06-21 10:56 | Outpatient (CLI) | payer MEDICARE, OTHER, SELFPAY ==
--- NOTE | 2024-06-21 10:58 | DI.RAD.S_ITS ---
PROCEDURE: XR FOOT RT MIN 3V INDICATIONS: ulcer of right great toe, eval for osteo TECHNIQUE: 3 views of the foot were acquired. COMPARISON: [facility], CR, XR FOOT RT MIN 3V, 11/27/2023, 15:25. FINDINGS: Bones: Hallux valgus, with 1st MTP osteoarthritis. No bony erosion. Soft tissues: No tibiotalar joint effusion. Achilles tendon appears normal. IMPRESSION: No acute bony abnormality. Although no bony erosions are identified, plain film radiography is relatively insensitive in the acute phases of osteomyelitis and may not demonstrate radiographic changes for 15 days. If acute osteomyelitis is of clinical concern, nuclear medicine regional bone scan or MRI is recommended. Dictated by: Teddy Garrett M.D. on 06/21/2024 at 15:25 Approved by: Teddy Garrett M.D. on 06/21/2024 at 15:25
== END ==
PROVIDERS: PCP Family Medicine; Referring Provider Surgery; Visit Provider Surgery
DX: E11.621 Type 2 diabetes mellitus with foot ulcer (principal); L97.519 Non-pressure chronic ulcer of other part of right foot with unspecified severity; M20.11 Hallux valgus (acquired), right foot; M19.071 Primary osteoarthritis, right ankle and foot
CPT/HCPCS: 73630

== ENCOUNTER → 2024-06-21 14:50 | Outpatient (CLI) | payer MEDICARE, OTHER, SELFPAY | PROVIDERS: PCP Family Medicine; Referring Provider Nurse Practitioner Family; Visit Provider Surgery | DX: E11.621 Type 2 diabetes mellitus with foot ulcer (principal); L97.512 Non-pressure chronic ulcer of other part of right foot with fat layer exposed; L84 Corns and callosities | CPT/HCPCS: 11042 ==

== ENCOUNTER → 2024-06-29 14:53 | Outpatient (CLI) | payer MEDICARE, OTHER, SELFPAY | LOC: WC 14:54 | PROVIDERS: PCP Family Medicine; Referring Provider Family Medicine; Visit Provider Surgery | DX: E11.621 Type 2 diabetes mellitus with foot ulcer (principal); L97.512 Non-pressure chronic ulcer of other part of right foot with fat layer exposed; L84 Corns and callosities; R23.4 Changes in skin texture | CPT/HCPCS: 11042 ==

== ENCOUNTER → 2024-07-01 11:20 | Outpatient (CLI) | payer MEDICARE, OTHER, SELFPAY ==
--- NOTE | 2024-07-01 11:21 | DI.US.S_ITS ---
PROCEDURE: US ARTERIAL DUPLEX LE RT INDICATIONS: ulcer of right great toe, abnormal [place] TECHNIQUE: Color and pulse Doppler interrogation was performed of the right lower extremity arterial system, with image documentation. COMPARISON: None. FINDINGS: Common femoral artery: 98 cm/sec, with triphasic flow. Deep femoral artery: 83 cm/sec, with biphasic flow. Proximal superficial femoral artery: 75 cm/sec, with biphasic flow. Mid superficial femoral artery: 79 cm/sec, with biphasic flow. Distal superficial femoral artery: 69 cm/sec, with biphasic flow. Popliteal artery: 57 cm/sec, with biphasic flow. Posterior tibial artery: 75 cm/sec, with biphasic flow. Anterior tibial artery/dorsalis pedis: 60 cm/sec, with monophasic flow. Wetzel-scale imaging description: Mild diffuse plaque IMPRESSION: 1. No significant outflow stenosis. 2. Possible hemodynamically significant anterior tibial artery stenosis. Dictated by: Viry Baig M.D. on 07/01/2024 at 14:31 Approved by: Viry Baig M.D. on 07/01/2024 at 14:37
== END ==
PROVIDERS: PCP Family Medicine; Referring Provider Surgery; Visit Provider Surgery
DX: E11.621 Type 2 diabetes mellitus with foot ulcer (principal); L97.519 Non-pressure chronic ulcer of other part of right foot with unspecified severity
CPT/HCPCS: 93926

== ENCOUNTER → 2024-07-01 15:15 | Outpatient (CLI) | payer MEDICARE, OTHER, SELFPAY | PROVIDERS: PCP Family Medicine; Referring Provider Nurse Practitioner Family; Visit Provider Surgery | DX: E11.621 Type 2 diabetes mellitus with foot ulcer (principal); L97.512 Non-pressure chronic ulcer of other part of right foot with fat layer exposed; L84 Corns and callosities | CPT/HCPCS: 99213 ==

== ENCOUNTER → 2024-07-06 15:31 | Outpatient (CLI) | payer MEDICARE, OTHER, SELFPAY | LOC: WC 15:39 | PROVIDERS: PCP Family Medicine; Referring Provider Nurse Practitioner Family; Visit Provider Surgery | DX: E11.628 Type 2 diabetes mellitus with other skin complications (principal); L84 Corns and callosities | CPT/HCPCS: 99212; 99213 ==

== ENCOUNTER → 2024-07-09 13:43 | Outpatient (CLI) | payer MEDICARE, OTHER, SELFPAY ==
--- NOTE | 2024-07-09 13:45 | DI.ECHO.S_ITS ---
[facility] + + [facility] : : [facility] : : [address] . : : [place], : : [place] [id number] : : Phone: [phone] Echocardiogram Report + + :Name: REBECA SANTOS Study Date: 07/09/2024 Height: 64 in : :[facility] ReadingLocation: Weight: 216 lb : : Gender: Female BSA: 2.0 m2 : :: 1945 Age: 78 yrs BP: 136/82 mmHg: :Reason For Study: ATRIAL FIBRILLATION : :Ordering Physician: ARIANA, : :FRANDY Performed By: Frandy Garcia : :Referring: FRANDY LANE : + + Interpretation Summary The left ventricle is normal in size. Left ventricular systolic function appears normal without focal wall motion abnormalities. The ejection fraction is estimated to be 55-60%. The right ventricle is mildly dilated. The right ventricular systolic function is normal. The right ventricular systolic pressure is estimated to be at least 43 mmHg based on an estimated right atrial pressure of 3 mm Hg. The left atrium is moderately dilated. There is mild to moderate mitral regurgitation. There is probable paradoxical low flow gradient moderate aortic stenosis. The peak aortic velocity is 2.15 m/sec. The calculated aortic valve area is 1.1 cm2. Procedure: A two-dimensional transthoracic echocardiogram with color flow and Doppler was performed. The study quality was technically adequate. Comparison is made with the echocardiogram of 12/29/2014. The patient was in atrial fibrillation with heart rates between 58-77 bpm during the exam. Left Ventricle: The left ventricle is normal in size. There is normal left ventricular wall thickness. There is no ventricular septal defect visualized. Left ventricular systolic function appears normal without focal wall motion abnormalities. The ejection fraction is estimated to be 55-60%. Diastolic function could not be accurately assessed due to atrial fibrillation. Right Ventricle: The right ventricle is mildly dilated. The right ventricular systolic function is normal. Atria: The left atrium is moderately dilated. Right atrial size is normal. The interatrial septum grossly appears intact with no obvious evidence for an atrial septal defect. Mitral Valve: There is mild mitral annular calcification. The mitral valve leaflets are mildly calcified. There is mild to moderate mitral regurgitation. There are multiple regurgitant jets present. Aortic Valve: The aortic valve is trileaflet. The aortic valve is moderately calcified. There is moderate aortic stenosis. The peak aortic velocity is 2.15 m/sec. The aortic valve mean gradient is 10.3 mmHg. The calculated aortic valve area is 1.1 cm2. No aortic regurgitation is present. Tricuspid Valve: The tricuspid valve is normal in structure and function. There is mild tricuspid regurgitation. The right ventricular systolic pressure is estimated to be at least 43 mmHg based on an estimated right atrial pressure of 3 mm Hg. Pulmonic Valve: The pulmonic valve is normal in structure and function. There is trace pulmonic regurgitation. Great Vessels: The aortic root is normal size. The dimensions of the ascending aorta are normal. The pulmonary artery is normal size. The IVC is of normal diameter and collapses greater than 50% with a sniff. This suggests a low right atrial pressure of 3 mm Hg. Pericardium/ Pleura There is no pericardial effusion. There is no pleural effusion. MMode/2D Measurements & Calculations LVIDd: 4.2 cm AoV Openin.67 cm LVIDs: 2.7 cm LVOT diam: 2.0 cm IVSd: 0.86 cm Ao root diam: 3.5 cm LVPWd: 0.97 cm asc Aorta Diam: 3.4 cm LV duncan. diameter/BSA (cm/m^2): 2.1 Ao Arch Diam (Prox Trans): 2.0 cm LV sys. diameter/BSA (cm/m^2): 1.4 FS: 34.3 % EPSS: 0.37 cm LA A2 area: 26.9 cm2 RA long axis: 6.2 cm LA A4 area: 30.2 cm2 RA area: 19.5 cm2 LA length (vol): 7.0 cm RA vol: 52.1 ml LA vol: 99.1 ml RA : 25.8 ml/m2 LA vol index: 49.0 ml/m2 RVD1 (basal): 4.0 cm IVC diam: 2.0 cm RVD2 (mid): 3.2 cm TAPSE: 2.1 cm Doppler Measurements & Calculations Ao V2 max: 214.6 cm/sec LVOT Max Tyrone: 77.8 cm/sec Ao V2 mean: 150.7 cm/sec LV V1 max P.4 mmHg Ao V2 VTI: 57.2 cm LV V1 VTI: 19.8 cm Ao max P.4 mmHg Ao mean P.3 mmHg BOBO(I,D): 1.1 cm2 MV E max tyrone: 121.6 cm/sec BOBO(V,D): 1.1 cm2 MV A max tyrone: 31.8 cm/sec BOBO indexed to BSA (cm^2/m^2): 0.52 MV E/A: 3.8 sev ratio: 0.35 Med Peak E' Tyrone: 7.4 cm/sec E/E' med: 16.4 Lat Peak E' Tyrone: 9.0 cm/sec E/E' lat: 13.5 E/e' average: 14.9 MV dec time: 0.16 sec TR max tyrone: 314.1 cm/sec TR max P.5 mmHg PA V2 max: 76.8 cm/sec SV(LVOT): 60.7 ml PA V2 mean: 50.7 cm/sec PA mean P.1 mmHg PA pr(Accel): 41.3 mmHg Reading Physician:04:44 PM
== END ==
PROVIDERS: PCP Family Medicine; Referring Provider Family Medicine; Visit Provider Family Medicine
DX: I08.3 Combined rheumatic disorders of mitral, aortic and tricuspid valves (principal); I48.91 Unspecified atrial fibrillation; R30.0 Dysuria; Z79.01 Long term (current) use of anticoagulants
CPT/HCPCS: 87077; 87086; 87186; 93306

== ENCOUNTER → 2024-07-09 16:00 | Outpatient (CLI) | payer MEDICARE, OTHER, SELFPAY | PROVIDERS: PCP Family Medicine; Visit Provider Physician Assistant Medical | DX: R30.0 Dysuria (principal) | CPT/HCPCS: 87077; 87086; 87186 ==

== ENCOUNTER → 2024-07-13 15:16 | Outpatient (CLI) | payer MEDICARE, OTHER, SELFPAY | PROVIDERS: PCP Family Medicine; Referring Provider Family Medicine; Visit Provider Surgery | DX: Z09 Encounter for follow-up examination after completed treatment for conditions other than malignant neoplasm (principal); Z86.31 Personal history of diabetic foot ulcer | CPT/HCPCS: 99211; 99213 ==

== ENCOUNTER → 2024-08-09 12:40 | Outpatient (CLI) | payer MEDICARE, OTHER, SELFPAY ==
[2024-08-09 13:56] LABS: Cholesterol 184 mg/dL (140-199); HDL Cholesterol 45 mg/dL (40-60); LDL Cholesterol Calculated 103 mg/dL (<100); Triglycerides 179 mg/dL (35-150)
== END ==
PROVIDERS: PCP Family Medicine; Referring Provider Family Medicine; Visit Provider Family Medicine
DX: E11.69 Type 2 diabetes mellitus with other specified complication (principal); E78.5 Hyperlipidemia, unspecified; E11.42 Type 2 diabetes mellitus with diabetic polyneuropathy; E13.621 Other specified diabetes mellitus with foot ulcer; L97.508 Non-pressure chronic ulcer of other part of unspecified foot with other specified severity; I48.21 Permanent atrial fibrillation
CPT/HCPCS: 36415; 80061; 83036

== ENCOUNTER → 2024-08-13 11:47 | Outpatient (CLI) | payer MEDICARE, OTHER, SELFPAY ==
--- NOTE | 2024-08-13 11:48 | DI.MG.S_ITS ---
BILATERAL DIGITAL DIAGNOSTIC MAMMOGRAM 3D/2D POST LUMPECTOMY: 08/13/2024 CLINICAL: Post left lumpectomy. Comparison is made to exams dated: 02/14/2023 mammogram, 02/04/2023 ultrasound, 02/04/2023 mammogram, and 01/06/2017 mammogram - [facility]. There are scattered areas of fibroglandular density (category b / 25%-50% glandular tissue). There are post surgical changes in the left breast from prior mammogram. No significant masses, calcifications, or other findings are seen in either breast. IMPRESSION: BENIGN Status post left breast lumpectomy. No mammographic evidence of malignancy. A 1 year screening mammogram is recommended. Findings and recommendations were conveyed to the patient during today's evaluation. This exam was interpreted at Station ID: [id number]. NOTE: For mammograms, a report in lay terms will be sent to the patient. Approximately 15% of breast malignancies will not be visualized mammographically. In the management of a palpable breast mass, a negative mammogram must not discourage biopsy of a clinically suspicious lesion. Electronically Signed By: Julia Mccall M.D., Ph.D. eb/:08/13/2024 13:21:06 copy to: RODDY ANTON letter sent: Normal Exam ACR BI-RADS Category 2: Benign
== END ==
PROVIDERS: PCP Family Medicine; Referring Provider Family Medicine; Visit Provider Family Medicine
DX: C50.512 Malignant neoplasm of lower-outer quadrant of left female breast (principal); Z17.0 Estrogen receptor positive status [ER+]; Z98.890 Other specified postprocedural states
CPT/HCPCS: 77066; G0279

== ENCOUNTER 2024-09-29 13:04 | Emergency (ER) | payer MEDICARE, OTHER, SELFPAY ==
[2024-09-29] VITALS (17 sets, daily range): BP systolic 131–179; BP diastolic 69–84; PULSE 56–70; RESP 16–21; TEMP 36.3; O2SAT 96–99
--- NOTE | 2024-09-29 13:21 | ED_ITS ---
HPI - Fall General Chief Complaint: Trauma Stated Complaint: fall hit head, on thinners Time Seen by Provider: 09/29/24 13:13 Mode of arrival: Wheelchair History of Present Illness HPI Narrative: Patient here for ground level fall. Patient is on warfarin for atrial fibrillation. Patient fell 3 days ago at home. She tripped over her cane and landed on her left side. Complains of periorbital left eye bruising, proximal left forearm pain. And left rib pain.. No pain or injury below the waist or pelvis. No hip or knee ankle pain. Has chronic right leg pain which is not not new. No loss of consciousness. No nausea or vomiting. No confusion. Patient sees primary care Dr. Frandy Burton. No existing present executive compensation analyst managing her care. Related Data Home Medications Medication Instructions Recorded Confirmed ASCORBIC ACID (VITAMIN C) 500 mg PO Q DAY ##0 06/04/12 08/12/24 CALCIUM CARBONATE (CALCIUM 1,000 mg PO ##0 06/04/12 08/12/24 CARBONATE (CHEW)) Fish Oil (#FISH OIL) 1 iu PO ##0 06/04/12 08/12/24 Glucosamine Hydrochloride 500 mg PO ##0 06/04/12 08/12/24 (#GLUCOSAMINE) MULTIVITAMIN (One Daily 1 tab PO Q DAY ##0 06/04/12 08/12/24 Multivitamin) VITAMIN D 400 iu PO ##0 06/04/12 08/12/24 Zinc, Chelated (#ZINC) 10 mg PO ##0 06/04/12 08/12/24 folic acid 400 mcg tablet 0.4 mg PO QDAY ##0 06/04/12 08/12/24 glipizide 10 mg tablet 10 mg PO BID 07/09/24 08/12/24 sertraline 100 mg tablet 100 mg PO DAILY 07/09/24 08/12/24 Previous Rx's Medication Instructions Recorded blood-glucose meter (True Metrix #1 ea 09/19/23 Glucose Meter) lancets 30 gauge #100 ea 09/19/23 Toilet Riser with handles - XXL #1 ea 10/27/23 blood sugar diagnostic (True #100 ea 10/27/23 Metrix Glucose Test Strip) metoprolol tartrate 100 mg tablet 100 mg PO BID #180 tabs 10/27/23 letrozole 2.5 mg tablet 2.5 mg PO DAILY #90 tabs 12/15/23 citalopram 20 mg tablet 20 mg PO DAILY #90 tabs 02/23/24 levothyroxine 112 mcg tablet 112 mcg PO DAILY #90 tabs 03/10/24 ondansetron 4 mg disintegrating 4 mg PO Q8H PRN nausea and 03/10/24 tablet vomiting #20 tabs Disabled Parking Permit See Rx Instructions .Route 04/14/24 .COMPLEX #1 ea gabapentin 300 mg capsule See Rx Instructions .Route 06/07/24 .COMPLEX 90 days #540 caps warfarin 5 mg tablet 5 mg PO .COMPLEX #60 tabs 06/29/24 empagliflozin 25 mg tablet 25 mg PO DAILY #90 tabs 07/27/24 (Jardiance) famotidine 20 mg tablet 20 mg PO BID #180 tabs 09/23/24 lisinopril 40 mg tablet 40 mg PO DAILY #90 tabs 09/23/24 metformin 500 mg tablet,extended 1,000 mg (2 x 500 mg) PO BID #360 09/23/24 release 24 hr tabs acyclovir 400 mg tablet 400 mg PO BID #180 tabs 10/04/24 Allergies Allergy/AdvReac Type Severity Reaction Status Date / Time No Known Drug Allergies Allergy Verified 08/12/24 13:28 Review of Systems Review of Systems Narrative: GENERAL: Negative chills, fatigue, malaise, fever, sweats. HEENT: Negative sinus pain, ear pain, sore throat RESPIRATORY: Negative dyspnea, cough CARDIOVASCULAR: Negative chest pain, palpitations GASTROINTESTINAL: Negative nausea, vomiting, abdominal pain : Negative dysuria, frequency, hematuria MUSCULOSKELETAL: Positive muscle or bony pain SKIN: Negative rash, skin lesions NEUROLOGIC: Negative weakness, numbness negative headache negative altered mental status ROS Unobtainable: All systems reviewed & are unremarkable except as noted in HPI and below Patient History Medical History Obesity (BMI 35.0-39.9 without comorbidity) Hyperlipidemia associated with type 2 diabetes mellitus Depression Controlled type 2 diabetes mellitus (06/04/12) Diabetic neuropathy Gallbladder calculus Kidney stones Paresthesia GERD (gastroesophageal reflux disease) Hypothyroidism Vision disorder Mumps Measles Chicken pox Anemia Tinnitus Heavy menstrual period Fibroids Atrial fibrillation (~2014) Surgical History History of hysterectomy Family History Father Stroke Mother Heart disease Social History marital status: household members: friend(s) Smoking Status: Never smoker alcohol intake: current substance use type: does not use Smoking Status: Never smoker alcohol intake frequency: holidays/special occasions only Exam Narrative Exam Narrative: GENERAL: in no distress, not toxic not dyspneic HEAD: Normocephalic. There is left periorbital ecchymosis. EYES: Pupils equal round PERRLA EOMI no double vision, no pain with eye movement. ENT: Mucous membranes moist. NECK: Trachea midline. No midline tenderness or step-off cervical spine. CARDIOVASCULAR: Regular rate and rhythm RESPIRATORY: Clear to auscultation. Breath sounds equal bilaterally. No wheezes, rales, or rhonchi. Reproducible left lateral rib tenderness without crepitus or flail. No bruising or skin injury seen. GASTROINTESTINAL: Abdomen soft, non-tender EXTREMITIES: No gross deformities. Examination left upper extremity nontender olecranon shoulder wrist and hand. However does have pain at proximal forearm on palpation and range of motion with supination pronation. Nontender bilateral pelvis hips knees and ankles. BACK: No flank tenderness. NEURO: AOx4. Clear speech SKIN: Warm and dry PSYCH: Not anxious, is cooperative Initial Vital Signs Initial Vital Signs: Vital Signs Pulse Rate 70 09/29/24 13:09 Pulse Oximetry 98 09/29/24 13:09 Procedures Orthopedic Splinting/Casting Injury #1: Time of procedure: 18:27 Side: left Upper Extremity Injury Location: elbow Upper Extremity Immobilizer: sugar tong splint Post splinting neuro exam: intact Post splinting vascular exam: intact Placed by: Nursing Course Orders Ordered: Discontinued Medications Sodium Chloride (Normal Saline 0.9%) 500 mls @ 1,000 mls/hr IV BOLUS ONE Stop: 09/29/24 18:59 Last Infusion: 09/29/24 19:13 Dose: Infused Documented By: Admin: 09/29/24 18:40 Dose: 1,000 mls/hr Documented By: ZO Vital Signs Vital signs: Vital Signs - 8 hr 12/18/24 13:09 09/29/24 13:10 09/29/24 13:10 Temperature Pulse Rate 70 64 Respiratory Rate Blood Pressure 131/69 Pulse Oximetry 98 98 Oxygen Delivery Method 09/29/24 13:11 09/29/24 13:30 09/29/24 14:00 Temperature 97.3 F L Pulse Rate 70 63 56 L Respiratory Rate 16 Blood Pressure 131/69 Pulse Oximetry 99 96 96 Oxygen Delivery Method Room Air 09/29/24 14:30 09/29/24 15:00 09/29/24 15:30 Temperature Pulse Rate 57 L 57 L 66 Respiratory Rate 18 Blood Pressure Pulse Oximetry 96 96 97 Oxygen Delivery Method Room Air 09/29/24 15:54 09/29/24 15:54 09/29/24 16:00 Temperature Pulse Rate 63 62 Respiratory Rate Blood Pressure 139/73 Pulse Oximetry 99 98 Oxygen Delivery Method 09/29/24 16:01 09/29/24 16:01 09/29/24 16:30 Temperature Pulse Rate 62 62 Respiratory Rate 21 20 Blood Pressure 163/69 H Pulse Oximetry 98 98 Oxygen Delivery Method Room Air 09/29/24 16:31 09/29/24 16:31 Temperature Pulse Rate 60 Respiratory Rate 20 Blood Pressure 161/72 H Pulse Oximetry 99 Oxygen Delivery Method MDM - Fall Lab Data 09/29/24 15:15 09/29/24 15:15 Labs: Lab Results 09/29/24 Range/Units 15:15 WBC 9.0 (4.5-11.0) X10^3/uL RBC 4.13 (4.0-5.2) X10^6/uL Hgb 13.5 (12.0-16.0) g/dL Hct 40.0 (36-46) % MCV 96.8 (80-100) fL MCH 32.6 (26-34) PG MCHC 33.7 (30-36) % RDW 13.6 (11.6-14.8) % Plt Count 216 (150-400) X10^3/uL Neut % (Auto) 69.3 (50-75) % Lymph % (Auto) 20.7 L (25-40) % [place] % (Auto) 7.8 (3-14) % Eos % (Auto) 2.0 (2-4) % Baso % (Auto) 0.2 (0-2) % Neut # (Auto) 6200 (7440-0850) /uL Lymph # (Auto) 1900 (6202-2562) /uL [place] # (Auto) 700 (0-900) /uL Eos # (Auto) 200 (0-450) /uL Baso # (Auto) 0 (0-100) /uL PT 20.8 H (9.4-12.5) SECONDS INR 1.9 H (0.9-1.3) APTT 38 H (25.1-36.5) SECONDS Sodium 138 (137-145) mmol/L Potassium 4.3 (3.4-5.1) mmol/L Chloride 106 (98-107) mmol/L Carbon Dioxide 27 (22-32) mmol/L BUN 16 (7-17) mg/dL Creatinine 0.82 (0.52-1.04) mg/dL Estimated GFR > 60 (>60) mL/min BUN/Creatinine Ratio 19.5 (6-22) Glucose 124 H (80-110) mg/dL Calcium 9.2 (8.4-10.2) mg/dL Total Bilirubin 0.8 (0.2-1.3) mg/dL AST 30 (14-36) IU/L ALT 19 (<35) IU/L Alkaline Phosphatase 113 (38-126) U/L Total Protein 6.9 (6.3-8.2) g/dL Albumin 3.7 (3.5-5.0) g/dL Globulin 3.2 (1.7-4.1) g/dL Albumin/Globulin Ratio 1.2 (1.0-2.8) Imaging Data CT chest abdomen pelvis: Radiologist's Impression: [address] [address] [address] Scan Report Signed Patient: Kandace Mccord MR#: [id number] : 1945 Acct:[id number] Age/Sex: 79 / F Date of Service: 09/29/24 Loc: ED Accession Number: [id number] Procedure: CT chest abd pel w con Ordering Provider: Jon Tapia MD PROCEDURE: CT CHEST ABD PEL W CON INDICATIONS: fall w/ chest tenderness, trauma pt TECHNIQUE: After the administration of intravenous contrast, 5 mm thick sections acquired from the lung apices to the symphysis. 2.5 mm thick coronal and sagittal reformats were acquired. Additional 7 mm thick coronal maximum intensity projection (MIP) reformats acquired through the lungs. Optional 10-minute delayed imaging may be performed from the kidneys to the bladder. For radiation dose reduction, the following was used: automated exposure control, adjustment of mA and/or kV according to patient size. COMPARISON: [facility], CT, CT CHEST ABD PEL W CON, 02/26/2023, 12:15. FINDINGS: Image quality: Diagnostic. CHEST: Lower Neck: No enlarged lymph nodes. Thyroid: There is a 0.9 cm left thyroid lobe nodule. Axillae: No enlarged lymph nodes. Surgical clips are noted in the left axilla. Chest Wall: No subcutaneous gas. Lungs and Pleura: Diffuse subpleural fibrotic changes. No pulmonary contusions or lacerations. No acute airspace opacities. No pneumothorax or hemothorax. Mediastinum: No mediastinal hematomas. Heart size is normal. No pericardial effusion. Moderate three-vessel coronary artery calcification. Thoracic aorta and pulmonary arteries demonstrate normal size and enhancement. No mediastinal or hilar adenopathy. Esophagus is normal in caliber. Small sliding gastric hiatal hernia. ABDOMEN: Liver: No lacerations. In hepatic segment 7 is noted a partially calcified cystic lesion measuring up to 1.9 cm. Gallbladder: Several large gallstones are seen within the lumen of the gallbladder without secondary signs of acute cholecystitis. Biliary ducts: No biliary dilation. Pancreas: Homogenous enhancement. Spleen: Homogenous enhancement without laceration or hematoma. Adrenal Glands: Symmetric enhancement. Kidneys and Ureters: Symmetric enhancement. No hydronephrosis. No solid mass. No complex renal cystic lesion which requires follow up. Stomach and Bowel: Normal colonic caliber, without significant wall thickening. The small bowel appears normal. Peritoneum: No abnormal intraperitoneal fluid. No free air. Ventral Wall: No hernia. Abdominal Nodes: No retroperitoneal or mesenteric adenopathy by size criteria. Vessels: Aorta and inferior vena cava are normal in size. PELVIS: Pelvic Organs: Unremarkable. Bladder: Normal thickness. Air is seen within the lumen of the urinary bladder. A small droplet of air is seen at the left renal collecting system. Pelvic Nodes: No enlarged lymph nodes. Miscellaneous: No inguinal hernias are seen. Bones: Pelvic ring and hip joints appear intact. No displaced rib fractures. Mild anterolisthesis of L4 on L5. Moderate to severe diffusely decreased bone mineral density. Increased midthoracic kyphosis. IMPRESSION: No evidence of traumatic injury to the chest, abdomen or pelvis. Dictated by: Basilio Herrera M.D. on 09/29/2024 at 17:32 Approved by: Basilio Herrera M.D. on 09/29/2024 at 17:44 CT scan - head: Radiologist's Impression: [address] [address] [address] Scan Report Signed Patient: Kandace Mccord MR#: [id number] : 1945 Acct:[id number] Age/Sex: 79 / F Date of Service: 09/29/24 Loc: ED Accession Number: [id number] Procedure: CT head/brain wo con Ordering Provider: Jon Tapia MD PROCEDURE: CT HEAD/BRAIN WO CON INDICATIONS: fall on thinners TECHNIQUE: Noncontrast 4.5 mm thick angled axial sections acquired from the foramen magnum to the vertex, with coronal and sagittal reformats. For radiation dose reduction, the following was used: automated exposure control, adjustment of mA and/or kV according to patient size. COMPARISON: [facility], CT, CT FACIAL BONES WO CON, 09/29/2024, 15:37. [facility], CT, CT CERVICAL SPINE WO CON, 09/29/2024, 15:37. FINDINGS: Image quality: Diagnostic. CSF spaces: Basal cisterns are patent. No extra-axial fluid collections. The ventricles are symmetric in size and shape. Brain: No intracranial bleeds or masses. There is cerebral volume loss for age, with resultant ventricular and sulcal prominence. There are periventricular and deep white matter chronic small vessel ischemic changes. There is intracranial internal carotid artery atherosclerosis. Skull and face: Calvarium and visualized facial bones appear intact, without suspicious lesions. Proptosis of the left globe is seen. Sinuses: Blood is seen within the left maxillary sinus, nearly filling it. There is a mild degree of mucosal thickening seen within the left ethmoid air cells. No abnormal fluid is seen within the mastoid air cells. IMPRESSION: Blood is seen within the left maxillary sinus, nearly filling it. There is proptosis of the right globe, yet without an explanation seen. No acute intracranial hemorrhage is seen. No acute intracranial process is seen. Dictated by: Ruben Woods M.D. on 09/29/2024 at 15:01 Approved by: Ruben Woods M.D. on 09/29/2024 at 15:04 CT face: Radiologist's Impression: [address] [address] [address] Scan Report Signed Patient: Kandace Mccord MR#: [id number] : 1945 Acct:[id number] Age/Sex: 79 / F Date of Service: 09/29/24 Loc: ED Accession Number: [id number] Procedure: CT facial bones wo con Ordering Provider: Jon Tapia MD PROCEDURE: CT FACIAL BONES WO CON INDICATIONS: fall on thinners TECHNIQUE: Noncontrast 2.5 mm thick axial images acquired from the mandible through the frontal sinuses, with coronal and sagittal reformatting. For radiation dose reduction, the following was used: automated exposure control, adjustment of mA and/or kV according to patient size. COMPARISON: [facility], CT, CT CERVICAL SPINE WO CON, 09/29/2024, 15:37. [facility], CT, CT HEAD/BRAIN WO CON, 09/29/2024, 15:37. FINDINGS: Image quality: Excellent. Bones and teeth: Orbital cristobal are intact. Sinus cristobal show no fracture or deformity. Nasal bones and septum are intact. Visualized portions of the mandible demonstrate no fractures or subluxation. Zygomatic arches are intact. Pterygoid plates are intact. Visualized portions of the skull base and auditory canals are intact. Sinuses: The left maxillary sinus is nearly completely filled with blood. Moderate mucosal thickening can be seen within the left ethmoid air cells. There is a mild degree of layering blood within the left sphenoid sinus. Soft tissues: There is proptosis of the left globe. No left orbital masses or hemorrhage can be seen. No edema, masses, or fluid collections. No enlarged lymph nodes. No soft tissue lacerations or debris. Vascular: Visualized vascular structures appear normal in the absence of contrast. Bony vascular foramina and canals are intact. IMPRESSION: No facial bone fracture is seen. The left maxillary sinus is nearly completely filled with blood. There is proptosis of the left globe, yet without a cause identified. No fracture, mass, or intraorbital hemorrhage can be seen. Dictated by: Ruben Woods M.D. on 09/29/2024 at 15:04 Approved by: Ruben Woods M.D. on 09/29/2024 at 15:06 CT - cervical spine: Radiologist's Impression: [address] [address] [address] Scan Report Signed Patient: Kandace Mccord MR#: [id number] : 1945 Acct:[id number] Age/Sex: 79 / F Date of Service: 09/29/24 Loc: ED Accession Number: [id number] Procedure: CT cervical spine wo con Ordering Provider: Jon Tapia MD PROCEDURE: CT CERVICAL SPINE WO CON INDICATIONS: fall on thinners TECHNIQUE: Noncontrast 3 mm thick sections acquired from the skull base to the T4 level. Sagittal and coronal reformats were then constructed. For radiation dose reduction, the following was used: automated exposure control, adjustment of mA and/or kV according to patient size. COMPARISON: [facility], CT, CT HEAD/BRAIN WO CON, 09/29/2024, 15:37. [facility], CT, CT FACIAL BONES WO CON, 09/29/2024, 15:37. FINDINGS: Image quality: Excellent. Bones: No fractures or dislocations. Visualized superior ribs are intact. Focal degenerative change is seen involving the C1-C2 interface anteriorly. There is at least moderate disc space narrowing seen at C5-C6, with associated endplate irregularity and sclerosis. Posteriorly projected endplate osteophytes are seen. Moderate disc space narrowing is seen at C6-C7. Soft tissues: Prevertebral soft tissues are normal in thickness. No paravertebral hematomas. No apical pneumothoraces. Atherosclerotic calcification is noted. IMPRESSION: No displaced fracture or traumatic subluxation. Cervical spine degenerative changes are seen, which are worst at C5-C6. Dictated by: Ruben Woods M.D. on 09/29/2024 at 15:06 Approved by: Ruben Woods M.D. on 09/29/2024 at 15:08 Extremity x-ray #1: Radiologist's Impression: [address] [address] XRay Report Signed Patient: Kandace Mccord MR#: [id number] : 1945 Acct:[id number] Age/Sex: 79 / F Date of Service: 09/29/24 Loc: ED Accession Number: [id number] Procedure: XR forearm LT 2V Ordering Provider: Jon Tapia MD PROCEDURE: XR FOREARM LT 2V INDICATIONS: Fall/pain TECHNIQUE: 2 views of the forearm were acquired. COMPARISON: None. FINDINGS: Bones: Possible cortical step-off at the proximal radial head. Soft tissues: No suspicious soft tissue calcifications or masses. IMPRESSION: Possible proximal radial head fracture. If this area correlates to point tenderness, elbow series is recommended for further evaluation. Dictated by: Kayce Hanna M.D. on 09/29/2024 at 14:46 Approved by: Kayce Hanna M.D. on 09/29/2024 at 14:46 [facility] Narrative Medical decision making narrative: Patient here for ground level fall. Patient is on warfarin for atrial fibrillation. Patient fell 3 days ago at home. She tripped over her cane and landed on her left side. Complains of periorbital left eye bruising, proximal left forearm pain. And left rib pain.. No pain or injury below the waist or pelvis. No hip or knee ankle pain. Has chronic right leg pain which is not not new. No loss of consciousness. No nausea or vomiting. No confusion. Patient sees primary care Dr. Frandy Burton. No existing present executive compensation analyst managing her care. Patient is aware we do not have CT imaging today we will have to transferred to [facility] for imaging and then return here. After history and exam CBC CMP PT INR PTT CT head cervical spine facial bones chest abdomen pelvis EKG [facility] Medical records reviewed: No recent visit for this complaint Differential considered: Includes but not limited to facial fracture rib fracture hemothorax pneumothorax forearm fracture/contusion Lab Test results independently reviewed as above. Pertinent findings: WBC 9.0 hemoglobin 13.5 INR 1.9 GFR greater than 60 Independently reviewed EKG atrial fibrillation rate 56 Imaging studies independently reviewed: CT chest abdomen pelvis no acute finding CT head no acute intracranial injury. Possible right globe proptosis CT face no acute fracture possible left globe proptosis CT cervical spine no acute finding X-ray left forearm radial head fracture Consultations: Page placed for ENT Treatments: Pain is controlled. None indicated. Re-evaluations: 6:28 p.m.. Son at bedside. Reviewed results with patient and son. Will need sugar-tong splint for the left elbow. Follow up with ENT regarding the blood in the sinus. Re-examination. There is no proptosis of the orbits. There is no visual complaints or double vision exam is reassuring. EOMI and PERRLA Discussion: Appropriate for discharge home exam is reassuring. Return precautions reviewed. Call out to ENT placed but patient and family desire discharge home. No call back from ENT by the time they left. Diagnosis: Radial head fracture, chest contusion, facial contusion Discharge Plan Departure Patient Disposition: Home Clinical Impression: Contusion of face Qualifiers: Encounter type: initial encounter Qualified Code(s): S00.83XA - Contusion of other part of head, initial encounter Contusion of rib on left side Qualifiers: Encounter type: initial encounter Qualified Code(s): S20.212A - Contusion of left front wall of thorax, initial encounter Closed fracture of radial head Qualifiers: Encounter type: initial encounter Fracture alignment: nondisplaced Laterality: left Qualified Code(s): S52.125A - Nondisplaced fracture of head of left radius, initial encounter for closed fracture Instructions: DI for Eye Contusion, DI for Forearm Fracture, DI for Contusion, DI for Trauma, DI for Closed Head Injury Activity Restrictions/Additional Instructions: Your exam and laboratory studies imaging studies are reassuring. A splint has been applied with sling to treat your elbow fracture at the radial head. Please call provided orthopedic office for follow up. Please call provided ENT tomorrow for follow up regarding the blood in the left sinus from your fall/injury. Please call offices tomorrow. Continue home medications. Return if worse if any questions or concerns. See family doctor in a week for re- evaluation as well. May continue Tylenol for pain. Prescriptions: No Action glipizide 10 mg tablet 10 mg PO BID sertraline 100 mg tablet 100 mg PO DAILY MULTIVITAMIN (One Daily Multivitamin) 1 tab PO Q DAY Qty: 0 ASCORBIC ACID (VITAMIN C) 500 mg PO Q DAY Qty: 0 Glucosamine Hydrochloride (#GLUCOSAMINE) 500 mg PO Qty: 0 CALCIUM CARBONATE (CALCIUM CARBONATE (CHEW)) 1,000 mg PO Qty: 0 Fish Oil (#FISH OIL) 1 iu PO Qty: 0 VITAMIN D 400 iu PO Qty: 0 Zinc, Chelated (#ZINC) 10 mg PO Qty: 0 folic acid 0.4 MG tablet 0.4 mg PO QDAY Qty: 0 (DME) blood-glucose meter [True Metrix Glucose Meter] Misc See Rx Instructions .Route Qty: 1 0RF Rx Instructions: As directed (DME) lancets 30 gauge misc See Rx Instructions .Route Qty: 100 1RF Rx Instructions: As directed, test glucose level once daily letrozole 2.5 mg tablet 2.5 mg PO DAILY Qty: 90 0RF Rx Instructions: Replacement prescription due to damaged medication. Please fill. Patient is out. gabapentin 300 mg capsule See Rx Instructions .ROUTE .COMPLEX 90 Days Qty: 540 3RF Dose Instruction: TAKE 2 CAPSULES (600 MG) BY MOUTH TWICE DAILY Rx Instructions: TAKE 2 CAPSULES (600 MG) BY MOUTH THREE TIMES PER SHAGUFTA warfarin 5 mg tablet 5 mg PO .COMPLEX Qty: 60 3RF Protocol: Dose Management Condition: Friday Dose/Route: 2.5 mg Instruction: 0.5 x 5 mg tablets Condition: Friday Dose/Route: 5 mg Instruction: 1 x 5 mg tablet Condition: Friday Dose/Route: 2.5 mg Instruction: 0.5 x 5 mg tablets Condition: Friday Dose/Route: 5 mg Instruction: 1 x 5 mg tablet Condition: Dose/Route: 2.5 mg Instruction: 0.5 x 5 mg tablets Condition: Friday Dose/Route: 2.5 mg Instruction: 0.5 x 5 mg tablets Condition: Friday Dose/Route: 2.5 mg Instruction: 0.5 x 5 mg tablets Protocol Text: Adjustment Start Date: 09/30/24 INR Value: 1.9 INR Date: 09/29/24 Recheck Date: 10/14/24 Rx Instructions: Take one tab (5mg) total Friday and Friday and 1/2 tab(2.5 mg) total all the other days; or as directed. Jardiance 25 mg tablet 25 mg PO DAILY Qty: 90 3RF metformin 500 mg tablet extended release 24 hr 1,000 mg PO BID Qty: 360 3RF lisinopril 40 mg tablet 40 mg PO DAILY Qty: 90 3RF famotidine 20 mg tablet 20 mg PO BID Qty: 180 3RF acyclovir 400 mg tablet 400 mg PO BID Qty: 180 3RF Disabled Parking Permit See Rx Instructions .ROUTE .COMPLEX Qty: 1 0RF Rx Instructions: Temporary disabled parking permit for 6 months (DME) Toilet Riser with handles - XXL See Rx Instructions .Route .MEDSUPPLY Qty: 1 0RF Rx Instructions: Toilet Riser with Handles for toilet. (DME) True Metrix Glucose Test Strip Strip See Rx Instructions .Route Qty: 100 1RF Rx Instructions: As directed, test glucose levels once daily metoprolol tartrate 100 mg tablet 100 mg PO BID Qty: 180 3RF citalopram 20 mg tablet 20 mg PO DAILY Qty: 90 3RF Rx Instructions: Take 1 tab each morning for depression. ondansetron 4 mg tablet,disintegrating 4 mg PO Q8H PRN (Reason: nausea and vomiting) Qty: 20 1RF Rx Instructions: Take 1 tab under tongue every 8 hours as needed for nausea levothyroxine 112 mcg tablet 112 mcg PO DAILY Qty: 90 1RF Referrals: Frandy Burton MD [Primary Care Provider] - Ton Larson MD [Physician] - Tommy Fairbanks MD [Physician] - Stand Alone Forms: Patient Portal/API/Survey
--- NOTE | 2024-09-29 13:24 | EKG_ITS ---
[address] [address] Test Date: 2024-09-29 Pat Name: Kandace Mccord Department: [facility] Room: Gender: Female Independent [employer]: CANDE : [id number] Requested By: Order Number: [id number] Reading MD: Parvez Larson Measurements Intervals [place] Rate: 56 P: AR: QRS: -8 QRSD: 90 T: -7 QT: 444 QTc: 428 Interpretive Statements Atrial fibrillation with slow ventricular response Electronically Signed On 09-29-2024 15:14:23 PST by Parvez Larson
--- NOTE | 2024-09-29 13:40 | PC.NURSE ---
I assumed care over pt at 1340 and performed trauma assessment.
--- NOTE | 2024-09-29 15:29 | DI.CT.S_ITS ---
PROCEDURE: CT CERVICAL SPINE WO CON INDICATIONS: fall on thinners TECHNIQUE: Noncontrast 3 mm thick sections acquired from the skull base to the T4 level. Sagittal and coronal reformats were then constructed. For radiation dose reduction, the following was used: automated exposure control, adjustment of mA and/or kV according to patient size. COMPARISON: [facility], CT, CT HEAD/BRAIN WO CON, 09/29/2024, 15:37. [facility], CT, CT FACIAL BONES WO CON, 09/29/2024, 15:37. FINDINGS: Image quality: Excellent. Bones: No fractures or dislocations. Visualized superior ribs are intact. Focal degenerative change is seen involving the C1-C2 interface anteriorly. There is at least moderate disc space narrowing seen at C5-C6, with associated endplate irregularity and sclerosis. Posteriorly projected endplate osteophytes are seen. Moderate disc space narrowing is seen at C6-C7. Soft tissues: Prevertebral soft tissues are normal in thickness. No paravertebral hematomas. No apical pneumothoraces. Atherosclerotic calcification is noted. IMPRESSION: No displaced fracture or traumatic subluxation. Cervical spine degenerative changes are seen, which are worst at C5-C6. Dictated by: Ruben Woods M.D. on 09/29/2024 at 15:06 Approved by: Ruben Woods M.D. on 09/29/2024 at 15:08
--- NOTE | 2024-09-29 15:29 | DI.CT.S_ITS ---
PROCEDURE: CT HEAD/BRAIN WO CON INDICATIONS: fall on thinners TECHNIQUE: Noncontrast 4.5 mm thick angled axial sections acquired from the foramen magnum to the vertex, with coronal and sagittal reformats. For radiation dose reduction, the following was used: automated exposure control, adjustment of mA and/or kV according to patient size. COMPARISON: [facility], CT, CT FACIAL BONES WO CON, 09/29/2024, 15:37. [facility], CT, CT CERVICAL SPINE WO CON, 09/29/2024, 15:37. FINDINGS: Image quality: Diagnostic. CSF spaces: Basal cisterns are patent. No extra-axial fluid collections. The ventricles are symmetric in size and shape. Brain: No intracranial bleeds or masses. There is cerebral volume loss for age, with resultant ventricular and sulcal prominence. There are periventricular and deep white matter chronic small vessel ischemic changes. There is intracranial internal carotid artery atherosclerosis. Skull and face: Calvarium and visualized facial bones appear intact, without suspicious lesions. Proptosis of the left globe is seen. Sinuses: Blood is seen within the left maxillary sinus, nearly filling it. There is a mild degree of mucosal thickening seen within the left ethmoid air cells. No abnormal fluid is seen within the mastoid air cells. IMPRESSION: Blood is seen within the left maxillary sinus, nearly filling it. There is proptosis of the right globe, yet without an explanation seen. No acute intracranial hemorrhage is seen. No acute intracranial process is seen. Dictated by: Ruben Woods M.D. on 09/29/2024 at 15:01 Approved by: Ruben Woods M.D. on 09/29/2024 at 15:04
--- NOTE | 2024-09-29 15:29 | DI.CT.S_ITS ---
PROCEDURE: CT FACIAL BONES WO CON INDICATIONS: fall on thinners TECHNIQUE: Noncontrast 2.5 mm thick axial images acquired from the mandible through the frontal sinuses, with coronal and sagittal reformatting. For radiation dose reduction, the following was used: automated exposure control, adjustment of mA and/or kV according to patient size. COMPARISON: [facility], CT, CT CERVICAL SPINE WO CON, 09/29/2024, 15:37. [facility], CT, CT HEAD/BRAIN WO CON, 09/29/2024, 15:37. FINDINGS: Image quality: Excellent. Bones and teeth: Orbital cristobal are intact. Sinus cristobal show no fracture or deformity. Nasal bones and septum are intact. Visualized portions of the mandible demonstrate no fractures or subluxation. Zygomatic arches are intact. Pterygoid plates are intact. Visualized portions of the skull base and auditory canals are intact. Sinuses: The left maxillary sinus is nearly completely filled with blood. Moderate mucosal thickening can be seen within the left ethmoid air cells. There is a mild degree of layering blood within the left sphenoid sinus. Soft tissues: There is proptosis of the left globe. No left orbital masses or hemorrhage can be seen. No edema, masses, or fluid collections. No enlarged lymph nodes. No soft tissue lacerations or debris. Vascular: Visualized vascular structures appear normal in the absence of contrast. Bony vascular foramina and canals are intact. IMPRESSION: No facial bone fracture is seen. The left maxillary sinus is nearly completely filled with blood. There is proptosis of the left globe, yet without a cause identified. No fracture, mass, or intraorbital hemorrhage can be seen. Dictated by: Ruben Woods M.D. on 09/29/2024 at 15:04 Approved by: Ruben Woods M.D. on 09/29/2024 at 15:06
--- NOTE | 2024-09-29 15:35 | DI.CT.S_ITS ---
PROCEDURE: CT CHEST ABD PEL W CON INDICATIONS: fall w/ chest tenderness, trauma pt TECHNIQUE: After the administration of intravenous contrast, 5 mm thick sections acquired from the lung apices to the symphysis. 2.5 mm thick coronal and sagittal reformats were acquired. Additional 7 mm thick coronal maximum intensity projection (MIP) reformats acquired through the lungs. Optional 10-minute delayed imaging may be performed from the kidneys to the bladder. For radiation dose reduction, the following was used: automated exposure control, adjustment of mA and/or kV according to patient size. COMPARISON: [facility], CT, CT CHEST ABD PEL W CON, 02/26/2023, 12:15. FINDINGS: Image quality: Diagnostic. CHEST: Lower Neck: No enlarged lymph nodes. Thyroid: There is a 0.9 cm left thyroid lobe nodule. Axillae: No enlarged lymph nodes. Surgical clips are noted in the left axilla. Chest Wall: No subcutaneous gas. Lungs and Pleura: Diffuse subpleural fibrotic changes. No pulmonary contusions or lacerations. No acute airspace opacities. No pneumothorax or hemothorax. Mediastinum: No mediastinal hematomas. Heart size is normal. No pericardial effusion. Moderate three-vessel coronary artery calcification. Thoracic aorta and pulmonary arteries demonstrate normal size and enhancement. No mediastinal or hilar adenopathy. Esophagus is normal in caliber. Small sliding gastric hiatal hernia. ABDOMEN: Liver: No lacerations. In hepatic segment 7 is noted a partially calcified cystic lesion measuring up to 1.9 cm. Gallbladder: Several large gallstones are seen within the lumen of the gallbladder without secondary signs of acute cholecystitis. Biliary ducts: No biliary dilation. Pancreas: Homogenous enhancement. Spleen: Homogenous enhancement without laceration or hematoma. Adrenal Glands: Symmetric enhancement. Kidneys and Ureters: Symmetric enhancement. No hydronephrosis. No solid mass. No complex renal cystic lesion which requires follow up. Stomach and Bowel: Normal colonic caliber, without significant wall thickening. The small bowel appears normal. Peritoneum: No abnormal intraperitoneal fluid. No free air. Ventral Wall: No hernia. Abdominal Nodes: No retroperitoneal or mesenteric adenopathy by size criteria. Vessels: Aorta and inferior vena cava are normal in size. PELVIS: Pelvic Organs: Unremarkable. Bladder: Normal thickness. Air is seen within the lumen of the urinary bladder. A small droplet of air is seen at the left renal collecting system. Pelvic Nodes: No enlarged lymph nodes. Miscellaneous: No inguinal hernias are seen. Bones: Pelvic ring and hip joints appear intact. No displaced rib fractures. Mild anterolisthesis of L4 on L5. Moderate to severe diffusely decreased bone mineral density. Increased midthoracic kyphosis. IMPRESSION: No evidence of traumatic injury to the chest, abdomen or pelvis. Dictated by: Basilio Herrera M.D. on 09/29/2024 at 17:32 Approved by: Basilio Herrera M.D. on 09/29/2024 at 17:44
[2024-09-29 15:36] LABS: Add Manual Diff / Slide Review NO; Basophils Absolute Auto 0 /uL (0-100); Basophils Percent Auto 0.2 % (0-2); Eosinophils Absolute Auto 200 /uL (0-450); Hemoglobin 13.5 g/dL (12.0-16.0); Lymphocytes Absolute Auto 1900 /uL (1100-4500); Lymphocytes Percent Auto 20.7 % (25-40); Mean Corpuscular HGB Conc 33.7 % (30-36); Mean Corpuscular Hemoglobin 32.6 PG (26-34); Mean Corpuscular Volume 96.8 fL (80-100); Monocytes Absolute Auto 700 /uL (0-900); Monocytes Percent Auto 7.8 % (3-14); Neutrophils Absolute Auto 6200 /uL (1500-7000); Neutrophils Percent Auto 69.3 % (50-75); Platelet Count 216 X10^3/uL (150-400); Red Blood Cell Count 4.13 X10^6/uL (4.0-5.2); Red Cell Distribution Width 13.6 % (11.6-14.8)
[2024-09-29 15:48] LABS: INR 1.9 (0.9-1.3); Prothrombin Time 20.8 SECONDS (9.4-12.5)
[2024-09-29 15:50] LABS: PTT Partial Thromboplastin Tim 38 SECONDS (25.1-36.5)
[2024-09-29 15:53] LABS: Alanine Aminotransferase 19 IU/L (<35); Albumin 3.7 g/dL (3.5-5.0); Albumin Globulin Ratio 1.2 (1.0-2.8); Alkaline Phosphatase 113 U/L (38-126); Aspartate Aminotransferase 30 IU/L (14-36); BUN Creatinine Ratio 19.5 (6-22); Bilirubin Total 0.8 mg/dL (0.2-1.3); Blood Urea Nitrogen 16 mg/dL (7-17); Calcium 9.2 mg/dL (8.4-10.2); Carbon Dioxide 27 mmol/L (22-32); Chloride 106 mmol/L (98-107); Estimated Glomerular Filt Rate > 60 mL/min (>60); Globulin 3.2 g/dL (1.7-4.1); Glucose 124 mg/dL (80-110); HEMOLYSIS < 15 (0-50); Potassium 4.3 mmol/L (3.4-5.1); Sodium 138 mmol/L (137-145); Total Protein 6.9 g/dL (6.3-8.2)
--- NOTE | 2024-09-29 16:52 | PC.NURSE ---
Assumed care of patient, patient reports having 2/10 pain and does not need any pain medication, gave her the call light
[2024-09-29] MEDS: SODIUM CHLORIDE 0.9% 500 ML 1000 ML IV (18:40)
== END 2024-09-29 19:23 | disposition home or self-care (01) ==
PROVIDERS: Emergency Provider Emergency Medicine; PCP Family Medicine
DX: S52.125A Nondisplaced fracture of head of left radius, initial encounter for closed fracture (principal); S00.12XA Contusion of left eyelid and periocular area, initial encounter; S20.212A Contusion of left front wall of thorax, initial encounter; Z79.01 Long term (current) use of anticoagulants; W01.0XXA Fall on same level from slipping, tripping and stumbling without subsequent striking against object, initial encounter
CPT/HCPCS: 29125; 36415; 70450; 70486; 71260; 72125; 73090; 74177; 80053; 85025; 85610; 85730; 93005; 99284; Q9967

== ENCOUNTER → 2025-01-06 12:15 | Outpatient (CLI) | payer MEDICARE, OTHER, SELFPAY | PROVIDERS: PCP Family Medicine; Visit Provider Nurse Practitioner Family | DX: R30.0 Dysuria (principal) | CPT/HCPCS: 87077; 87086; 87186 ==

== ENCOUNTER → 2025-02-07 12:31 | Outpatient (CLI) | payer MEDICARE, OTHER, SELFPAY ==
[2025-02-07 12:58] LABS: Add Manual Diff / Slide Review NO; Basophils Absolute Auto 100 /uL (0-100); Basophils Percent Auto 0.5 % (0-2); Eosinophils Absolute Auto 200 /uL (0-450); Eosinophils Percent Auto 1.4 % (2-4); Hematocrit 46.1 % (36-46); Hemoglobin 15.3 g/dL (12.0-16.0); Lymphocytes Absolute Auto 2300 /uL (1100-4500); Lymphocytes Percent Auto 20.8 % (25-40); Mean Corpuscular HGB Conc 33.2 % (30-36); Mean Corpuscular Hemoglobin 32.3 PG (26-34); Mean Corpuscular Volume 97.4 fL (80-100); Monocytes Absolute Auto 900 /uL (0-900); Monocytes Percent Auto 7.9 % (3-14); Neutrophils Absolute Auto 7800 /uL (1500-7000); Neutrophils Percent Auto 69.4 % (50-75); Platelet Count 305 X10^3/uL (150-400); Red Blood Cell Count 4.73 X10^6/uL (4.0-5.2); Red Cell Distribution Width 14.5 % (11.6-14.8); White Blood Cell Count 11.2 X10^3/uL (4.5-11.0)
[2025-02-07 13:08] LABS: Hemoglobin A1C% w Est Avg Glu 6.4 % (4.0-6.0)
[2025-02-07 13:28] LABS: Alanine Aminotransferase 24 IU/L (<35); Albumin 4.3 g/dL (3.5-5.0); Albumin Globulin Ratio 1.4 (1.0-2.8); Alkaline Phosphatase 166 U/L (38-126); Aspartate Aminotransferase 30 IU/L (14-36); BUN Creatinine Ratio 32.1 (6-22); Bilirubin Total 0.8 mg/dL (0.2-1.3); Blood Urea Nitrogen 25 mg/dL (7-17); Carbon Dioxide 26 mmol/L (22-32); Chloride 104 mmol/L (98-107); Estimated Glomerular Filt Rate > 60 mL/min (>60); Glucose 165 mg/dL (70-99); HEMOLYSIS < 15 (0-50); Potassium 5.3 mmol/L (3.4-5.1); Sodium 141 mmol/L (137-145); Total Protein 7.3 g/dL (6.3-8.2)
[2025-02-07 13:57] LABS: TSH w/ Reflex to FT4 0.91 uIU/mL (0.47-4.68)
[2025-02-07 15:10] LABS: Microalbumin Urine Random 6.3 mg/dL (0-1.6)
== END ==
PROVIDERS: PCP Family Medicine; Referring Provider Family Medicine; Visit Provider Family Medicine
DX: I10 Essential (primary) hypertension (principal); I48.21 Permanent atrial fibrillation; E11.69 Type 2 diabetes mellitus with other specified complication; E78.5 Hyperlipidemia, unspecified; E03.9 Hypothyroidism, unspecified
CPT/HCPCS: 36415; 80053; 82043; 82570; 83036; 84443; 85025

== ENCOUNTER → 2025-02-10 16:27 | Outpatient (CLI) | payer MEDICARE, OTHER, SELFPAY | LOC: LAB 16:28 | PROVIDERS: PCP Family Medicine; Visit Provider Family Medicine | DX: N39.0 Urinary tract infection, site not specified (principal) | CPT/HCPCS: 87086 ==

== ENCOUNTER → 2025-02-25 13:13 | Outpatient (CLI) | payer MEDICARE, OTHER, SELFPAY | PROVIDERS: PCP Family Medicine; Referring Provider Family Medicine; Visit Provider Physician Assistant | DX: E11.621 Type 2 diabetes mellitus with foot ulcer (principal); E11.40 Type 2 diabetes mellitus with diabetic neuropathy, unspecified; L97.512 Non-pressure chronic ulcer of other part of right foot with fat layer exposed; L84 Corns and callosities; I48.91 Unspecified atrial fibrillation; Z85.3 Personal history of malignant neoplasm of breast; Z79.01 Long term (current) use of anticoagulants; Z87.442 Personal history of urinary calculi; E03.9 Hypothyroidism, unspecified; Z86.19 Personal history of other infectious and parasitic diseases; R20.0 Anesthesia of skin | CPT/HCPCS: 11042; 87070; 87075; 87147; 87205; 99213; 99214 ==

== ENCOUNTER → 2025-03-04 12:42 | Outpatient (CLI) | payer MEDICARE, OTHER, SELFPAY ==
--- NOTE | 2025-03-04 12:44 | DI.RAD.S_ITS ---
PROCEDURE: XR TOE RT MIN 2V INDICATIONS: non-healing ulcer of right 2nd toe TECHNIQUE: AP, lateral, and oblique views of the right foot 2nd toe COMPARISON: None. FINDINGS: Diffuse osseous demineralization. No acute fracture or dislocation. Osseous erosions along the medial aspect of the 1st metatarsal head with amorphous soft tissue calcifications near the MTP joint. No osseous erosions around the 2nd digit. No abnormal periosteal reaction or other abnormal soft tissue calcifications. Mild 1st MTP osteoarthritis. IMPRESSION: 1. 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 2. No radiographic evidence of osteomyelitis. Dictated by: Cruz Cavanaugh M.D. on 03/04/2025 at 17:05 Approved by: Cruz Cavanaugh M.D. on 03/04/2025 at 17:06
== END ==
PROVIDERS: PCP Family Medicine; Referring Provider Physician Assistant; Visit Provider Physician Assistant
DX: M19.071 Primary osteoarthritis, right ankle and foot (principal); E11.621 Type 2 diabetes mellitus with foot ulcer; L97.509 Non-pressure chronic ulcer of other part of unspecified foot with unspecified severity; E11.40 Type 2 diabetes mellitus with diabetic neuropathy, unspecified; L97.512 Non-pressure chronic ulcer of other part of right foot with fat layer exposed; L84 Corns and callosities
CPT/HCPCS: 73660; 97597

== ENCOUNTER → 2025-03-04 14:15 | Outpatient (CLI) | payer MEDICARE, OTHER, SELFPAY | PROVIDERS: PCP Family Medicine; Referring Provider Family Medicine; Visit Provider Physician Assistant | DX: E11.621 Type 2 diabetes mellitus with foot ulcer (principal); E11.40 Type 2 diabetes mellitus with diabetic neuropathy, unspecified; L97.512 Non-pressure chronic ulcer of other part of right foot with fat layer exposed; L84 Corns and callosities | CPT/HCPCS: 97597; 99213 ==

== ENCOUNTER → 2025-03-17 13:03 | Outpatient (CLI) | payer MEDICARE, OTHER, SELFPAY ==
--- NOTE | 2025-03-17 13:05 | DI.US.S_ITS ---
PROCEDURE: US ARTERIAL DUPLEX LE RT INDICATIONS: non-healing ulcer of right 2nd toe, Abnormal [place] TECHNIQUE: Color and pulse Doppler interrogation was performed of the right lower extremity arterial system, with image documentation. COMPARISON: [facility], US, US ARTERIAL DUPLEX LE RT, 07/01/2024, 12:08. FINDINGS: Common femoral artery: 124 cm/sec, with triphasic flow. Deep femoral artery: 90 cm/sec, with triphasic flow. Proximal superficial femoral artery: 75 cm/sec, with triphasic flow. Mid superficial femoral artery: 74 cm/sec, with triphasic flow. Distal superficial femoral artery: 109 cm/sec, with triphasic flow. Popliteal artery: 56 cm/sec, with biphasic flow. Posterior tibial artery: 67 cm/sec, with biphasic flow. Anterior tibial artery/dorsalis pedis: 50 cm/sec, with biphasic flow. Wetzel-scale imaging description: [id number] scattered atherosclerotic plaque IMPRESSION: [id number] scattered atherosclerotic plaque without ultrasound evidence of hemodynamically significant stenosis Approved by: Antony Gonzales M.D. on 03/18/2025 at 16:09
== END ==
PROVIDERS: PCP Family Medicine; Referring Provider Family Medicine; Visit Provider Physician Assistant
DX: E11.621 Type 2 diabetes mellitus with foot ulcer (principal); L97.519 Non-pressure chronic ulcer of other part of right foot with unspecified severity
CPT/HCPCS: 93926

== ENCOUNTER → 2025-03-18 13:17 | Outpatient (CLI) | payer MEDICARE, OTHER, SELFPAY | LOC: WC 13:19 | PROVIDERS: PCP Family Medicine; Referring Provider Family Medicine; Visit Provider Physician Assistant | DX: Z86.31 Personal history of diabetic foot ulcer (principal); M19.071 Primary osteoarthritis, right ankle and foot | CPT/HCPCS: 99212 ==

== ENCOUNTER → 2025-08-09 12:43 | Outpatient (CLI) | payer MEDICARE, OTHER, SELFPAY ==
[2025-08-09 13:30] LABS: Add Manual Diff / Slide Review NO; Hematocrit 41.6 % (36-46); Hemoglobin 13.9 g/dL (12.0-16.0); Lymphocytes Absolute Auto 1200 /uL (1100-4500); Mean Corpuscular HGB Conc 33.5 % (30-36); Mean Corpuscular Hemoglobin 31.9 PG (26-34); Mean Corpuscular Volume 95.2 fL (80-100); Platelet Count 400 X10^3/uL (150-400)
[2025-08-09 13:37] LABS: Hemoglobin A1C% w Est Avg Glu 6.0 % (4.0-6.0)
[2025-08-09 14:00] LABS: Alanine Aminotransferase 17 IU/L (<35); Albumin 3.9 g/dL (3.5-5.0); Albumin Globulin Ratio 1.1 (1.0-2.8); Alkaline Phosphatase 115 U/L (38-126); Blood Urea Nitrogen 18 mg/dL (7-17); Calcium 9.6 mg/dL (8.4-10.2); Carbon Dioxide 25 mmol/L (22-32); Chloride 100 mmol/L (98-107); Estimated Glomerular Filt Rate > 60 mL/min (>60); Globulin 3.4 g/dL (1.7-4.1); Glucose 199 mg/dL (70-99); HEMOLYSIS < 15 (0-50); Potassium 4.7 mmol/L (3.4-5.1); Sodium 137 mmol/L (137-145); Total Protein 7.3 g/dL (6.3-8.2)
[2025-08-09 14:30] LABS: Prothrombin Time 141.4 SECONDS (9.4-12.5)
[2025-08-09 14:34] LABS: INR 13.4 (0.9-1.3)
== END ==
PROVIDERS: PCP Family Medicine; Referring Provider Family Medicine; Visit Provider Family Medicine
DX: E11.69 Type 2 diabetes mellitus with other specified complication (principal); I48.21 Permanent atrial fibrillation; E78.5 Hyperlipidemia, unspecified; E11.9 Type 2 diabetes mellitus without complications; I10 Essential (primary) hypertension; Z79.01 Long term (current) use of anticoagulants
CPT/HCPCS: 36415; 80053; 83036; 85025; 85610